=== PATIENT | female | born 1955 | race Caucasian/White ===

== ENCOUNTER 2017-03-27 08:36 | Day surgery (SDC) | payer BC ==
[2017-03-22 11:17] VITALS: BMI 23.1
[~2017-03-27 08:36] MED LIST: LACTATED RINGERS 1,000 ML IV SCH; LIDOCAINE 1% 20 ML VIAL (10MG/ML) FOR IV START INTRADERMA PRN
[2017-03-27 09:14] VITALS: RESP 16; TEMP 97.7
[2017-03-27] MEDS ORDERED: PROPOFOL 10 MG/ML 20 ML VIAL IV ONE (09:57)
--- NOTE | 2017-03-27 10:14 | P.PCN ---
Date of Procedure: 03/27/17 Preoperative Diagnosis: Postoperative Diagnosis: Procedure(s) Performed: BRIEF HISTORY: Patient is a 61-year-old pleasant white female, scheduled for an elective colonoscopy as a part of evaluation of intermittent rectal bleeding for the last 6 months duration and change in bowel habits. PROCEDURE PERFORMED: Colonoscopy with biopsy. PREOPERATIVE DIAGNOSIS: Intermittent rectal bleeding and change in bowel habits. IV sedation per Anesthesia. PROCEDURE: After informed consent was obtained, the patient, was brought into the endoscopy unit. IV sedation was administered by Anesthesia under continuous monitoring. Digital rectal examination was normal. Initially the Olympus CF- 160 flexible video colonoscope was then inserted in the rectum, and at 10 cm from the anal was there was a circumferential ulcerated rectal mass with some luminal narrowing noted. The scope could be advanced through the mass and gradually advanced into the cecum without any difficulty. Careful examination was performed as the scope was gradually being withdrawn. Ileocecal valve appeared very prominent and biopsies were done from this area. The appendiceal orifice were visualized and appeared normal. Prep was excellent. Mucosa of the cecum, ascending colon, transverse colon, appeared normal. There was a 2 cm lipoma in the descending colon that was biopsied. The rest of the descending colon, sigmoid colon appeared normal. in the proximal rectum at 10 cm from the anal verge there was circumferential ulcerated mass at some luminal narrowing but no obstruction. Multiple biopsies were done from this area.Retroflexion was performed in the rectum and no lesions were seen. The patient tolerated the procedure well. IMPRESSION: circumferential ulcerated proximal rectal mass at 10 cm from the anal verge status post multiple biopsies 2 cm descending colon lipoma status post biopsy Prominent ileocecal valve status post biopsy RECOMMENDATIONS: Findings of this examination were discussed with the patient as well as her family. At this time will await the biopsy results and she'll be seen in the office in 2 days. She will be scheduled for an a CT of the abdomen and pelvis in the meantime. Implants: Indications for Procedure: Operative Findings: Description of Procedure:
[2017-03-27 10:31] VITALS: BP 118/88; PULSE 54
== END 2017-03-27 10:53 | disposition home or self-care (01) ==
LOC: ORWHC2ENDO 08:36
PROVIDERS: ATTEND Internal Medicine Gastroenterology
DX: C20 Malignant neoplasm of rectum (principal); D17.5 Benign lipomatous neoplasm of intra-abdominal organs; Z87.891 Personal history of nicotine dependence; K21.9 Gastro-esophageal reflux disease without esophagitis
CPT/HCPCS: 88305; 45380; J2704

== ENCOUNTER → 2017-03-29 | Outpatient (CLI) | payer BC ==
--- NOTE | 2017-04-01 11:50 | CT ---
EXAMINATION TYPE: CT abdomen pelvis w con DATE OF EXAM: 03/29/2017 HISTORY: Rectal bleeding, change in bowel habits CT DLP: 1160mGycm Automated Exposure Control for Dose Reduction was Utilized. CONTRAST: CT scan of the abdomen and pelvis is performed with IV Contrast, patient injected with 100 mL of Omni paque 300. COMPARISON: Abdominal ultrasound dated 02/02/2012. FINDINGS: LUNG BASES: No significant abnormality is appreciated. LIVER/GB: No significant abnormality is appreciated. Gallbladder surgically absent. No intrahepatic b iliary ductal dilatation. PANCREAS: No significant abnormality is seen. SPLEEN: No significant abnormality is seen. Small splenules are seen adjacent to the [place] spleen. ADRENALS: No significant abnormality is seen. KIDNEYS: No significant abnormality is seen. BOWEL: There is eccentric rectal wall thickening of up to 1.3 cm and narrowing of rectal lumen with n o evidence of proximal obstruction. There is fat stranding of the mesorectal fat and few prominent ly mph nodes within the presacral space and mesorectal fat measuring up to 6 mm numerous sigmoid diverti cula are present without pericolonic fat stranding. UTERUS/ADNEXA: No gross abnormality seen. LYMPH NODES: No greater than 1cm abdominal or pelvic lymph nodes are appreciated. OSSEOUS STRUCTURES: No significant abnormality is seen. Degenerative changes are seen of the pubic sy mphysis and to a lesser degree at the sacroiliac joints as well as the lumbosacral junction. Limbus v ertebrae is also incidentally noted at L3. OTHER: No significant additional abnormality is seen. IMPRESSION: 1. Eccentric rectal wall thickening, fat stranding of the surrounding mesorectal fat, and local adeno amina. Although findings could relate to inflammatory or infectious etiology such as proctitis or ulc erative colitis, primary consideration should be for neoplasm until excluded and direct visualization is recommended. A [place] message has been communicated to Pat Rod MD via the [facility] Critical Result system on 04/01/2017 11:47 AM, Message ID [id number].
== END | disposition home or self-care (01) ==
LOC: RADCTMAIN 07:31
PROVIDERS: ATTEND Internal Medicine Gastroenterology
DX: K62.89 Other specified diseases of anus and rectum (principal); R59.0 Localized enlarged lymph nodes
CPT/HCPCS: 74177; Q9967

== ENCOUNTER → 2017-04-13 | Outpatient (CLI) | payer BC ==
--- NOTE | 2017-04-14 11:07 | PE ---
EXAMINATION TYPE: PET CT fusion skull to thigh DATE OF EXAM: 04/13/2017 COMPARISON: CT abdomen pelvis 03/29/2017 Prior PET/CT: None HISTORY: Rectal cancer TECHNIQUE: Following the intravenous administration of 10.61 mCi of F-18 FDG, whole body images are performed from the skull base to the midthigh. Images are reviewed on the computer in the coronal, a xial, and sagittal planes. Reconstructed rotating images are created on independent workstation and reviewed on the computer. A localization and attenuation correction CT is performed in conjunction with the PET scan. DLP: 285.07 mGycm SCAN: Initial Blood glucose: 97 mg/dL Average Mediastinum SUV: 1.5 Average Liver SUV: 2.4 FINDINGS: NECK: Motion artifact is present on the PET image through the lower skull base. Suspicious uptake wi thin the neck as visualized is not apparent. THORAX: No abnormal uptake ABDOMEN: No abnormal uptake PELVIS: There is focal radiotracer accumulation in the rectal region. This has an SUV value of 14.8 c ompatible with neoplasm. OSSEOUS STRUCTURES: No abnormal uptake. LOCALIZATION CT: The ascending thoracic aorta at the level the main pulmonary artery is 2.8 cm patent main pulmonary artery the bifurcation is 2.5 cm. Post cholecystectomy clips are present. There is th ickening of the rectum compatible the patient's rectosigmoid region cancer. COMPARISON: No significant change between the CT abdomen pelvis of 03/29/2017 is evident. Abnormal upta ke on the current PET CT is not evident within the left iliac chain region. IMPRESSION: 1. Focal uptake within the rectosigmoid region compatible with the patient's reported neoplasm. 2. Suspicious changes for metastatic disease are not identified.
== END | disposition home or self-care (01) ==
LOC: RADPETMAIN 11:57
PROVIDERS: ATTEND Family Medicine
DX: C20 Malignant neoplasm of rectum (principal)
CPT/HCPCS: 78815; A9552

== ENCOUNTER 2017-05-30 03:45 | Emergency (ER) | payer BC ==
[2017-05-30] MEDS ORDERED: RX INFO: IV CONTRAST WAS GIVEN 1 EACH MISC MISCELLANE PRN (03:47)
[2017-05-30] MEDS ORDERED: tPA (Alteplase) PER PHARMACY 1 EACH MISC MISCELLANE PRN (04:04)
[2017-05-30 04:11] VITALS: TEMP 97.4
[2017-05-30] MEDS ORDERED: SODIUM CHLORIDE 0.9% 1,000 ML IV ONE (04:20)
--- NOTE | 2017-05-30 04:32 | ED ---
General Adult HPI - General Chief complaint: Neuro Symptoms/Deficit Stated complaint: stroke symptoms Time Seen by Provider: 05/30/17 03:47 Source: patient, EMS, old records reviewed Mode of arrival: EMS Limitations: no limitations - History of Present Illness Initial comments: 61-year-old female presents with left upper and lower extremity weakness. Weakness began at approximately 2 am. Patient states she was awake at this time. She called EMS, she was unable to stand secondary to weakness. Patient denies chest pain. Denies headache. According EMS patient had left-sided facial weakness, slurred speech, left upper and left lower extremity weakness. Vital signs were stable during transport. Patient denies history hypertension. Denies chest pain or shortness of breath. Denies abdominal pain. Patient does have recent diagnosis of rectal CA. She has been receiving chemotherapy for this. There has been no surgery. Patient did have a biopsy on March 27. She has had no rectal bleeding. - Related Data Home Medications Medication Instructions Recorded Confirmed Lubiprostone [Amitiza] 24 mcg PO BID 03/22/17 03/27/17 Polyethylene Glycol 3350 [Miralax] 17 gm PO DAILY 03/22/17 03/27/17 Allergies Allergy/AdvReac Type Severity Reaction Status Date / Time No Known Allergies Allergy Verified 05/30/17 04:11 Review of Systems ROS Statement: Those systems with pertinent positive or pertinent negative responses have been documented in the HPI. ROS Other: All systems not noted in ROS Statement are negative. Past Medical History Past Medical History: Cancer, GERD/Reflux Additional Past Medical History / Comment(s): constipation for last 3 weeks, bleeding with stools for since approx Aug 2016,hx uti's History of Any Multi-Drug Resistant Organisms: None Reported Past Surgical History: Cholecystectomy Past Anesthesia/Blood Transfusion Reactions: No Reported Reaction Additional Past Anesthesia/Blood Transfusion Reaction / Comment(s): no hx blood transfusion Past Psychological History: Unable to Obtain Smoking Status: Former smoker Past Alcohol Use History: Unable to Obtain Past Drug Use History: Marijuana - Past Family History Mother Family Medical History: No Reported History Father Family Medical History: No Reported History General Exam Limitations: no limitations General appearance: alert, in distress Head exam: Present: atraumatic, normocephalic Eye exam: Present: normal appearance, PERRL, EOMI ENT exam: Present: normal exam Neck exam: Present: normal inspection Respiratory exam: Present: normal lung sounds bilaterally. Absent: respiratory distress Cardiovascular Exam: Present: regular rate, normal rhythm GI/Abdominal exam: Present: soft. Absent: distended, tenderness Rectal exam: Present: normal inspection, normal rectal tone. Absent: black stool, bloody stool Extremities exam: Present: normal inspection, normal capillary refill. Absent: pedal edema Neurological exam: Present: alert, oriented X3, motor sensory deficit (Left facial droop, left upper and left lower extremity complete paralysis). Absent: CN II-XII intact Psychiatric exam: Present: normal affect, normal mood Skin exam: Present: warm, dry, intact. Absent: cyanosis Course Vital Signs 05/30/17 03:48 Temperature 97.4 F L Pulse Rate 76 Respiratory 20 Rate Blood Pressure 140/85 O2 Sat by Pulse 100 Oximetry - Reevaluation(s) Reevaluation #1: 05/30/17 04:00 Prehospital Stroke activation. Patient taken immediately to computed tomography scan Reevaluation #2: 05/30/17 04:15 Case discussed with neuro interventionalist EKG Findings - EKG Comments: EKG Findings:: EKG shows sinus rhythm with PVC, ventricular rate 67, TX interval 140, QRS duration 84, QTC 445, no ST segment elevation or depression Medical Decision Making - Medical Decision Making 61-year-old female presenting with signs and symptoms of acute stroke. Patient does have recent diagnosis of rectal adenocarcinoma. She has been receiving chemotherapy. There has been no surgery. Patient denies rectal bleeding. PET scan obtained within the past several months shows no metastases. Patient does meet criteria for TPA. This was discussed with Dr. Rivera. Head CT without contrast negative for scleral hemorrhage CT angiography is pending, however liver report was called with him 1 occlusion on the right, consistent with patient's symptoms of left-sided weakness. TPA is ordered at 404, awaiting CT head report. I did receive this report at approximately 0445. Patient is given TPA for acute ischemic stroke. Patient will be transferred for further evaluation and treatment. - Lab Data Result diagrams: 05/30/17 04:15 Lab Results 05/30/17 05/30/17 Range/Units 04:15 04:31 WBC 12.3 H (3.8-10.6) k/uL RBC 4.25 (3.80-5.40) m/uL Hgb 13.5 (11.4-16.0) gm/dL Hct 39.1 (34.0-46.0) % MCV 92.2 (80.0-100.0) fL MCH 31.8 (25.0-35.0) pg MCHC 34.5 (31.0-37.0) g/dL RDW 12.7 (11.5-15.5) % Plt Count 393 (150-450) k/uL Neutrophils % 80 % Lymphocytes % 14 % Monocytes % 4 % Eosinophils % 1 % Basophils % 0 % Neutrophils # 9.8 H (1.3-7.7) k/uL Lymphocytes # 1.7 (1.0-4.8) k/uL Monocytes # 0.5 (0-1.0) k/uL Eosinophils # 0.1 (0-0.7) k/uL Basophils # 0.0 (0-0.2) k/uL POC Glucose (mg/dL) 194 H (75-99) mg/dL POC Glu Rfid Engineer ID Curtis Pedraza Critical Care Time Critical Care Time: Yes Total Critical Care Time: 35 Disposition Clinical Impression: CVA (cerebral vascular accident), Received intravenous tissue plasminogen activator (tPA) in emergency department Disposition: OTHER INSTITUTION NOT DEFINED Condition: Serious Referrals: Nonstaff,Physician [Primary Care Provider] - 1-2 days - Out of Hospital Transfer - Req. Specs Out of Hospital Transfer - Requested Specifics: Surgical ICU (Patient transferred to [facility])
[2017-05-30 04:34] LABS: Basophils % (A) 0 %; CH 31.3; CHCM 34.1; Eosinophils # (A) 0.1 k/uL (0-0.7); Eosinophils % (A) 1 %; HCT 39.1 % (34.0-46.0); HDW 2.16; HGB 13.5 gm/dL (11.4-16.0); Luc # (Auto) 0.16; Luc % (Auto) 1; Lymphocytes # (A) 1.7 k/uL (1.0-4.8); Lymphocytes % (A) 14 %; MCH 31.8 pg (25.0-35.0); MCHC 34.5 g/dL (31.0-37.0); MCV 92.2 fL (80.0-100.0); Mean Platelet Volume 7.3; Monocytes # (A) 0.5 k/uL (0-1.0); Monocytes % (A) 4 %; Neutrophils # (A) 9.8 k/uL (1.3-7.7); Neutrophils % (A) 80 %; RBC 4.25 m/uL (3.80-5.40); RDW 12.7 % (11.5-15.5); WBC 12.3 k/uL (3.8-10.6); WBC (Perox) 12.32
--- NOTE | 2017-05-30 04:37 | CT ---
EXAM: CT Head Without Intravenous Contrast CLINICAL HISTORY: Reason: Neuro Deficits TECHNIQUE: Axial computed tomography images of the head/brain without intravenous contrast. CTDI is 57.4 mGy and DLP is 1081.6 mGy-cm. This CT exam was performed using one or more of the following dose reduction techniques: automated exposure control, adjustment of the mA and/or kV according to patient size, and/or use of iterative reconstruction technique. COMPARISON: No relevant prior studies available. FINDINGS: Brain: Mild cerebral atrophy. No evidence of acute cortical cerebral infarction or intracranial hemorrhage. No abnormal extra-axial collections identified. No edema. Ventricles: Ventricles are of normal size and configuration without mass effect or midline shift. Bones/joints: No acute skull fracture. Sinuses: Imaged paranasal sinuses are clear. Mastoid sinuses are normally aerated bilaterally. Mastoid air cells: See above. IMPRESSION: No evidence of acute intracranial abnormality.
[2017-05-30] MEDS ORDERED: ALTEPLASE BOLUS 6 MG in EMPTY SYRINGE 1 SYR IV STA (04:42)
[2017-05-30] MEDS ORDERED: ALTEPLASE IV STA (04:42)
[2017-05-30 04:45] LABS: Glucose,Whole Blood 194 mg/dL (75-99)
[2017-05-30 04:49] LABS: Anion Gap 14 mmol/L; Calcium 9.6 mg/dL (8.4-10.2); Carbon Dioxide 18 mmol/L (22-30); Chloride 104 mmol/L (98-107); Glucose 200 mg/dL (74-99); Non-African American GFR(MDRD) >60 (>60 ml/min/1.73 sqM); Sodium 136 mmol/L (137-145); Total Bilirubin 0.6 mg/dL (0.2-1.3); Total Protein 6.7 g/dL (6.3-8.2)
[2017-05-30 04:50] LABS: Blood Urea Nitrogen 15 mg/dL (7-17); Potassium 4.2 mmol/L (3.5-5.1)
[2017-05-30 04:51] LABS: ALT 26 U/L (9-52); AST 22 U/L (14-36); Alkaline Phosphatase 83 U/L (38-126); Partial Thromboplastin Time 22.4 sec (22.0-30.0)
[2017-05-30 04:54] LABS: Creatine Kinase 37 U/L (30-135); Prothrombin Time 10.4 sec (9.0-12.0)
--- NOTE | 2017-05-30 05:04 | CT ---
EXAM: CT Angiography Head With Intravenous Contrast CLINICAL HISTORY: Reason: Neuro Deficits TECHNIQUE: Axial computed tomographic angiography images of the head with intravenous contrast using CT angiography protocol. CTDI is 57.4 mGy and DLP is 1081.6 mGy-cm. This CT exam was performed using one or more of the following dose reduction techniques: automated exposure control, adjustment of the mA and/or kV according to patient size, and/or use of iterative reconstruction technique. MIP reconstructed images were created and reviewed. COMPARISON: CT head 05/30/2017 FINDINGS: Right internal carotid artery: Mild calcific atherosclerotic plaque involving cavernous segment right internal carotid artery without significant stenosis No aneurysm. Right anterior cerebral artery: Unremarkable. No occlusion or significant stenosis. No aneurysm. Right middle cerebral artery: Right middle cerebral artery occlusion with abrupt termination of the M1 segment of right middle cerebral artery. There is opacification of more distal right MCA branches along the sylvian fissure. No aneurysm. Right posterior cerebral artery: Unremarkable. No occlusion or significant stenosis. No aneurysm. Right vertebral artery: Unremarkable as visualized. Left internal carotid artery: No acute findings. Intracranial segment is patent with no significant stenosis. No aneurysm. Left anterior cerebral artery: Unremarkable. No occlusion or significant stenosis. No aneurysm. Left middle cerebral artery: Unremarkable. No occlusion or significant stenosis. No aneurysm. Left posterior cerebral artery: Unremarkable. No occlusion or significant stenosis. No aneurysm. Left vertebral artery: Unremarkable as visualized. Basilar artery: Unremarkable. No occlusion or significant stenosis. No aneurysm. IMPRESSION: Right middle cerebral artery occlusion with abrupt termination of the M1 segment of right middle cerebral artery. EXAM: CT Angiography Neck With Intravenous Contrast CLINICAL HISTORY: Reason: Neuro Deficits TECHNIQUE: Axial computed tomographic angiography images of the neck with intravenous contrast using CT angiography protocol. CTDI is 57.4 mGy and DLP is 1081.6 mGy-cm. This CT exam was performed using one or more of the following dose reduction techniques: automated exposure control, adjustment of the mA and/or kV according to patient size, and/or use of iterative reconstruction technique. MIP reconstructed images were created and reviewed. COMPARISON: No relevant prior studies available. FINDINGS: VASCULATURE: Right common carotid artery: Unremarkable. No significant stenosis. No dissection or occlusion. Right internal carotid artery: Unremarkable. Extracranial segment is patent with no significant stenosis. No dissection or occlusion. Right external carotid artery: Unremarkable. No occlusion. Right vertebral artery: Unremarkable. No significant stenosis. No dissection or occlusion. Left common carotid artery: Unremarkable. No significant stenosis. No dissection or occlusion. Left internal carotid artery: Unremarkable. Extracranial segment is patent with no significant stenosis. No dissection or occlusion. Left external carotid artery: Unremarkable. No occlusion. Left vertebral artery: Unremarkable. No significant stenosis. No dissection or occlusion. CAROTID STENOSIS REFERENCE USING NASCET CRITERIA: % ICA stenosis = (1 - narrowest ICA diameter/diameter of distal cervical ICA) x 100. Mild - <50% stenosis. Moderate - 50-69% stenosis. Severe - 70-94% stenosis. Near occlusion - 95-99% stenosis. Occluded - 100% stenosis. IMPRESSION: No significant carotid stenosis or occlusion Vertebral arteries are patent bilaterally. Critical Value Communications 05/30/17 04:45 Call Doctor Regarding Stroke, called Dr. Jennings on 05/30 04:43 (-04:00) 05/30/17 05:12 Verify Receipt Verified receipt with ELODIA Jennings on 05/30 05:11 (-04:00)
[2017-05-30] MEDS ORDERED: LORazepam 2 MG/ML INJ IV STA (05:05)
[2017-05-30 05:07] LABS: Creatine Kinase MB <0.2 ng/mL (0.0-2.4); Troponin I <0.012 ng/mL (0.000-0.034)
--- NOTE | 2017-05-30 05:18 | XR ---
EXAM: XR Chest, 1 View CLINICAL HISTORY: Reason: Pain TECHNIQUE: Frontal view of the chest. COMPARISON: No relevant prior studies available. FINDINGS: Lungs: Lungs are clear without infiltrates or consolidations. Pleural space: No evidence of pleural effusion or pneumothorax Heart: Heart size is within normal limits Mediastinum: Unremarkable. Bones/joints: Imaged bony thorax is unremarkable IMPRESSION: No evidence of acute cardiopulmonary disease.
[2017-05-30 06:23] VITALS: BP 131/68
[2017-05-30 06:24] VITALS: PULSE 72; RESP 20
== END 2017-05-30 05:50 | disposition other institution (70) ==
LOC: EC 03:45
DX: I63.9 Cerebral infarction, unspecified (principal); C20 Malignant neoplasm of rectum; Z79.899 Other long term (current) drug therapy; Z87.891 Personal history of nicotine dependence
CPT/HCPCS: 99291 ×2; 96365 ×2; 96374 ×2; 36415; 93005; 80053; 82550; 82553; 84484; 85025; 85610; 85730; 80320; 71010; 70496; 70450; 70498; J2997; J2060; Q9967

== ENCOUNTER 2017-10-30 07:01 | Day surgery (SDC) | payer BC ==
[2017-10-28 10:27] VITALS: BMI 21.7
[~2017-10-30 07:01] MED LIST changes: +DEXAMETHASONE SOD PHOSPHATE 10 MG/ML 1 ML VIAL IV ONE; +HEPARIN SODIUM,PORCINE 5,000 UNIT/ML 1 ML VIAL SQ ONE; +HYDROmorphone 0.5 MG/0.5 ML SYRINGE IVP PRN; -LACTATED RINGERS 1,000 ML IV SCH; -LIDOCAINE 1% 20 ML VIAL (10MG/ML) FOR IV START INTRADERMA PRN; +ONDANSETRON 4 MG/2 ML VIAL IVP ONE; +Pre Op ABX Message 1 EACH MISC MISCELLANE ONE
[2017-10-30 07:28] VITALS: TEMP 97.7
[2017-10-30] MEDS: LACTATED RINGERS 1,000 ML IV SCH ×3 (07:47→08:21)
[2017-10-30] MEDS ORDERED: BUPIVACAINE (PF) 0.25% 30 ML VIAL SQ ONE ×2 (07:59→08:51)
[2017-10-30] MEDS ORDERED: HEPARIN SODIUM,PORCINE 100 UNIT/ML 5 ML VIAL IV ONE ×2 (08:00→08:51)
--- NOTE | 2017-10-30 08:19 | P.GSHP ---
History of Present Illness H&P Date: 10/30/17 Chief Complaint: Rectal cancer This a 62-year-old female who's recent diagnosis of rectal cancer. Patient presents today for Port-A-Cath insertion for IV infusion therapy. Patient aware the risk of the procedure including possible pneumothorax. Past Medical History Past Medical History: Cancer, CVA/TIA, GERD/Reflux Additional Past Medical History / Comment(s): colorectal cancer, 33 treatments chemo/radiation completed 07/10/17, CVA- 05/30/17 no residual effect, constipation,hx uti's History of Any Multi-Drug Resistant Organisms: None Reported Past Surgical History: Cholecystectomy, Pacemaker Additional Past Surgical History / Comment(s): colonoscopy 03/27/17, colorectal surgery to remove tumor 09/05/17 Past Anesthesia/Blood Transfusion Reactions: No Reported Reaction Additional Past Anesthesia/Blood Transfusion Reaction / Comment(s): no hx blood transfusion Type of Cardiac Device: Permanent Pacemaker Device Placement Date:: 08/21/17 Smoking Status: Former smoker - Past Family History Mother Family Medical History: Deep Vein Thrombosis (DVT) Father Family Medical History: No Reported History Medications and Allergies Home Medications Medication Instructions Recorded Confirmed Type ALPRAZolam [Xanax] 0.25 mg PO DAILY PRN 08/06/17 10/30/17 History Atorvastatin [Lipitor] 40 mg PO HS 08/06/17 10/30/17 History Metoprolol Tartrate [Lopressor] 12.5 mg PO BID 08/06/17 10/30/17 History Flecainide [Tambocor] 100 mg PO Q12HR 10/28/17 10/30/17 History Rivaroxaban [Xarelto] 20 mg PO DAILY 10/28/17 10/30/17 History traMADol HCL [Ultram] 50 mg PO Q8H PRN 10/28/17 10/30/17 History Allergies Allergy/AdvReac Type Severity Reaction Status Date / Time No Known Allergies Allergy Verified 10/30/17 07:08 Surgical - Exam Vital Signs Temp Pulse Resp BP Pulse Ox 97.7 F 107 H 20 112/70 100 10/30/17 07:26 10/30/17 07:26 10/30/17 07:26 10/30/17 07:26 10/30/17 07:26 - General well developed, no distress - Eyes PERRL - ENT normal pinna - Neck no masses - Respiratory normal expansion - Cardiovascular Rhythm: regular - Abdomen Abdomen: soft, non tender Assessment and Plan Assessment: History of rectal cancer. We'll perform Port-A-Cath insertion.
[2017-10-30] MEDS ORDERED: KETAMINE 10 MG/ML 20 ML VIAL ONE (08:25)
[2017-10-30] MEDS ORDERED: PHENYLEPHRINE-0.9% NACL SYG 1 MG/10 ML SYRINGE ONE (08:25)
[2017-10-30] MEDS ORDERED: fentaNYL (PF) 50 MCG/ML 2 ML AMP ONE (08:25)
[2017-10-30] MEDS ORDERED: LIDOCAINE 1% INJ 10MG/ML (20 ML MDV) ONE (08:25)
[2017-10-30] MEDS ORDERED: PROPOFOL 10 MG/ML 20 ML VIAL IV ONE (08:25)
[2017-10-30] MEDS ORDERED: MIDAZOLAM 2 MG/2 ML VIAL ONE (08:25)
[2017-10-30] MEDS ORDERED: SODIUM CHLORIDE 0.9% 50 ML with ceFAZolin 2,000 MG IV ONE ×2 (08:45)
[2017-10-30] MEDS ORDERED: IOHEXOL 180 MG/ML 1 ML ML MISCELLANE ONE (09:02)
--- NOTE | 2017-10-30 09:38 | FL ---
Fluoroscopy HISTORY: Port-A-Cath insertion 17 seconds fluoroscopy time supplied to the referring clinician. 0 intraoperative C-arm images docum ent the procedure. See dictated report from general surgery.
--- NOTE | 2017-10-30 09:47 | P.OP ---
Date of Procedure: 10/30/17 Preoperative Diagnosis: Rectal cancer Postoperative Diagnosis: Rectal cancer Procedure(s) Performed: Insertion of right subclavian Port-A-Cath Anesthesia: MAC Surgeon: Ezequiel Martinez Estimated Blood Loss (ml): 5 Pathology: none sent Condition: stable Disposition: PACU Description of Procedure: PROCEDURE: The patient was placed on the operating table in the supine position. She received MAC anesthetic. The [right] chest was prepped and draped in the usual sterile fashion. The skin underneath the right clavicle was anesthetized with 1% Xylocaine and using Seldinger technique, the right subclavian vein was cannulized. The wire was placed through the needle and positioned under fluoroscopy. Next, the needle was removed and the port site was anesthetized with 1% Xylocaine. Skin was incised with #15 blade and port pocket was made using blunt and sharp dissection. Following this the catheter was attached to the sport and the port was flushed. The port was positioned into the pocket site and was secured with 3-0 Vicryl suture. The catheter was then brought out through the wire site and then the dilator sheath was placed over the wire and the dilator and the wire were removed. The catheter was placed through the sheath and the sheath was removed. The port was flushed with hep-lock solution. Skin was closed with interrupted 3-0 Vicryl sutures. Steri-Strips were applied. The patient tolerated the procedure well. The patient was sent to recovery room for chest x-ray after the procedure.
[2017-10-30 09:50] VITALS: BP 95/65; PULSE 89; RESP 16
--- NOTE | 2017-10-30 09:50 | XR ---
EXAMINATION TYPE: XR chest 1V portable DATE OF EXAM: 10/30/2017 Comparison: 05/30/2017 Clinical History: 62-year-old female with Port-A-Cath Placement, pneumothorax Findings: Left anterior chest wall pacemaker generator with right atrial and right ventricular leads. Right anterior chest wall injection port with subclavian approach and tip at the brachiocephalic vein confluence. No appreciable pneumothorax. Heart remains upper limits of normal in size. Mild diffuse interstitial prominence as a chronic appearance. No consolidation or pleural effusion. Impression: Subclavian approach right anterior chest wall injection port. The catheter tip is at the level of the brachiocephalic vein confluence. No appreciable pneumothorax.
== END 2017-10-30 10:09 | disposition home or self-care (01) ==
LOC: OR 07:01
PROVIDERS: ATTEND Surgery
DX: C20 Malignant neoplasm of rectum (principal); K21.9 Gastro-esophageal reflux disease without esophagitis; Z86.73 Personal history of transient ischemic attack (TIA), and cerebral infarction without residual deficits; Z92.3 Personal history of irradiation; Z92.21 Personal history of antineoplastic chemotherapy; Z95.0 Presence of cardiac pacemaker; Z79.01 Long term (current) use of anticoagulants; Z79.899 Other long term (current) drug therapy; I10 Essential (primary) hypertension; Z85.038 Personal history of other malignant neoplasm of large intestine
CPT/HCPCS: 77001; 71045; 36561; C1788; J2250; J1644; J1642; J1100; Q9965; J2405; J2001; J3010; J0690; J2370; J2704

== ENCOUNTER 2017-12-17 10:43 | Inpatient (IN) | payer BC ==
[2017-12-17] MEDS ORDERED: SODIUM CHLORIDE 0.9% 1,000 ML IV STA ×2 (11:14)
[2017-12-17] MEDS ORDERED: METOPROLOL TARTRATE 5 MG/5 ML VIAL IVP STA (11:15)
--- NOTE | 2017-12-17 11:15 | ED ---
General Adult HPI - General Chief complaint: Weakness Stated complaint: Vomiting-cancer pt Time Seen by Provider: 12/17/17 10:53 Source: patient Mode of arrival: wheelchair Limitations: no limitations - History of Present Illness Initial comments: This is a 62-year-old female the ER for evaluation of weakness, not feeling well. History of A. fib, history of weakness, currently going through treatment for cancer with chemotherapy. States reaction is probably due to chemotherapy decreased appetite not feeling well weight loss. Dehydration. No significant other recent change in medications - Related Data Home Medications Medication Instructions Recorded Confirmed Atorvastatin [Lipitor] 40 mg PO HS 08/06/17 12/17/17 Rivaroxaban [Xarelto] 20 mg PO W/SUPPER 10/28/17 12/17/17 ALPRAZolam [Xanax] 0.5 mg PO DAILY PRN 12/17/17 12/17/17 Amiodarone [Cordarone] 200 mg PO DAILY 12/17/17 12/17/17 Gabapentin [Neurontin] 100 mg PO BID 12/17/17 12/17/17 Metoprolol Tartrate [Lopressor] 12.5 mg PO BID 12/17/17 12/17/17 Ondansetron HCl [Zofran] 4 mg PO Q8H PRN 12/17/17 12/17/17 Prochlorperazine [Compazine] 10 mg PO Q8H PRN 12/17/17 12/17/17 Allergies Allergy/AdvReac Type Severity Reaction Status Date / Time No Known Allergies Allergy Verified 12/17/17 11:34 Review of Systems ROS Statement: Those systems with pertinent positive or pertinent negative responses have been documented in the HPI. ROS Other: All systems not noted in ROS Statement are negative. Past Medical History Past Medical History: Cancer, CVA/TIA, GERD/Reflux Additional Past Medical History / Comment(s): colorectal cancer, 33 treatments chemo/radiation completed 07/10/17, CVA- 05/30/17 no residual effect, constipation,hx uti's History of Any Multi-Drug Resistant Organisms: None Reported Past Surgical History: Cholecystectomy, Pacemaker Additional Past Surgical History / Comment(s): colonoscopy 03/27/17, colorectal surgery to remove tumor 09/05/17 Past Anesthesia/Blood Transfusion Reactions: No Reported Reaction Additional Past Anesthesia/Blood Transfusion Reaction / Comment(s): no hx blood transfusion Type of Cardiac Device: Permanent Pacemaker Device Placement Date:: 08/21/17 Past Psychological History: No Psychological Hx Reported Smoking Status: Former smoker Past Alcohol Use History: None Reported Past Drug Use History: Marijuana - Past Family History Mother Family Medical History: Deep Vein Thrombosis (DVT) Father Family Medical History: No Reported History General Exam Limitations: no limitations General appearance: alert, in no apparent distress, anxious Head exam: Present: atraumatic, normocephalic, normal inspection Eye exam: Present: normal appearance, PERRL, EOMI. Absent: scleral icterus, conjunctival injection, periorbital swelling ENT exam: Present: normal exam, mucous membranes moist Neck exam: Present: normal inspection. Absent: tenderness, meningismus, lymphadenopathy Respiratory exam: Present: normal lung sounds bilaterally. Absent: respiratory distress, wheezes, rales, rhonchi, stridor Cardiovascular Exam: Present: tachycardia, irregular rhythm, normal heart sounds. Absent: systolic murmur, diastolic murmur, rubs, gallop, clicks GI/Abdominal exam: Present: soft, normal bowel sounds. Absent: distended, tenderness, guarding, rebound, rigid Extremities exam: Present: normal inspection, full ROM, normal capillary refill. Absent: tenderness, pedal edema, joint swelling, calf tenderness Back exam: Present: normal inspection Neurological exam: Present: alert, oriented X3, CN II-XII intact Psychiatric exam: Present: normal affect, normal mood Skin exam: Present: warm, dry, intact, normal color. Absent: rash Course Vital Signs 12/17/17 12/17/17 12/17/17 10:45 11:11 11:39 Temperature 96.8 F L Pulse Rate 66 111 H Respiratory 16 16 Rate Blood Pressure 134/59 117/82 O2 Sat by Pulse 99 96 Oximetry 12/17/17 12:53 Temperature Pulse Rate 99 Respiratory 16 Rate Blood Pressure 109/83 O2 Sat by Pulse 100 Oximetry - Reevaluation(s) Reevaluation #1: 12/17/17 15:45 Patient is consistent nausea vomiting here in the ER not feeling well inability inability secondary to weakness EKG Findings - EKG Comments: EKG Findings:: EKG shows A. fib with RVR rate 118, QRS 86, QTc 487 Medical Decision Making - Medical Decision Making 62 female the ER for evaluation pump, positive nausea vomiting, significant disease, patient currently going through treatment for CVA, patient with intractable nausea here in ER was admit for IV hydration and symptom control - Lab Data Result diagrams: 12/17/17 11:23 12/17/17 11:23 Lab Results 12/17/17 12/17/17 12/17/17 Range/Units 11:23 11:23 11:23 WBC 4.7 (3.8-10.6) k/uL RBC 5.11 (3.80-5.40) m/uL Hgb 16.2 H (11.4-16.0) gm/dL Hct 44.0 (34.0-46.0) % MCV 86.0 (80.0-100.0) fL MCH 31.7 (25.0-35.0) pg MCHC 36.9 (31.0-37.0) g/dL RDW 16.2 H (11.5-15.5) % Plt Count 200 (150-450) k/uL Neutrophils % (Manual) 53 % Band Neutrophils % 2 % Lymphocytes % (Manual) 21 % Monocytes % (Manual) 24 % Neutrophils # (Manual) 2.50 (1.3-7.7) k/uL Lymphocytes # (Manual) 0.99 L (1.0-4.8) k/uL Monocytes # (Manual) 1.13 H (0-1.0) k/uL Nucleated RBCs 0 (0-0) /100 WBC Manual Slide Review Performed Hyperchromasia Moderate Anisocytosis Slight PT (9.0-12.0) sec INR (<1.2) APTT (22.0-30.0) sec Sodium 129 L (137-145) mmol/L Potassium 3.4 L (3.5-5.1) mmol/L Chloride 88 L (98-107) mmol/L Carbon Dioxide 26 (22-30) mmol/L Anion Gap 15 mmol/L BUN 35 H (7-17) mg/dL Creatinine 1.25 H (0.52-1.04) mg/dL Est GFR (CKD-EPI)AfAm 53 (>60 ml/min/1.73 sqM) Est GFR (CKD-EPI)NonAf 46 (>60 ml/min/1.73 sqM) Glucose 145 H (74-99) mg/dL Plasma Lactic Acid Davy (0.7-2.0) mmol/L Calcium 9.5 (8.4-10.2) mg/dL Phosphorus 5.1 H (2.5-4.5) mg/dL Magnesium 1.7 (1.6-2.3) mg/dL Total Bilirubin 1.5 H (0.2-1.3) mg/dL AST 88 H (14-36) U/L ALT 146 H (9-52) U/L Alkaline Phosphatase 123 (38-126) U/L Total Creatine Kinase 25 L (30-135) U/L CK-MB (CK-2) 0.6 (0.0-2.4) ng/mL CK-MB (CK-2) Rel Index 2.4 Troponin I <0.012 (0.000-0.034) ng/mL Total Protein 7.0 (6.3-8.2) g/dL Albumin 4.6 (3.5-5.0) g/dL Urine Color Urine Appearance (Clear) Urine pH (5.0-8.0) Ur Specific [place] (1.001-1.035) Urine Protein (Negative) Urine Glucose (UA) (Negative) Urine Ketones (Negative) Urine Blood (Negative) Urine Nitrite (Negative) Urine Bilirubin (Negative) Urine Urobilinogen (<2.0) mg/dL Ur Leukocyte Esterase (Negative) Blood Type Blood Type Recheck Antibody Screen Spec Expiration Date 12/17/17 12/17/17 12/17/17 Range/Units 11:23 11:23 11:23 WBC (3.8-10.6) k/uL RBC (3.80-5.40) m/uL Hgb (11.4-16.0) gm/dL Hct (34.0-46.0) % MCV (80.0-100.0) fL MCH (25.0-35.0) pg MCHC (31.0-37.0) g/dL RDW (11.5-15.5) % Plt Count (150-450) k/uL Neutrophils % (Manual) % Band Neutrophils % % Lymphocytes % (Manual) % Monocytes % (Manual) % Neutrophils # (Manual) (1.3-7.7) k/uL Lymphocytes # (Manual) (1.0-4.8) k/uL Monocytes # (Manual) (0-1.0) k/uL Nucleated RBCs (0-0) /100 WBC Manual Slide Review Hyperchromasia Anisocytosis PT 13.1 H (9.0-12.0) sec INR 1.4 H (<1.2) APTT 26.3 (22.0-30.0) sec Sodium (137-145) mmol/L Potassium (3.5-5.1) mmol/L Chloride (98-107) mmol/L Carbon Dioxide (22-30) mmol/L Anion Gap mmol/L BUN (7-17) mg/dL Creatinine (0.52-1.04) mg/dL Est GFR (CKD-EPI)AfAm (>60 ml/min/1.73 sqM) Est GFR (CKD-EPI)NonAf (>60 ml/min/1.73 sqM) Glucose (74-99) mg/dL Plasma Lactic Acid Davy 1.8 (0.7-2.0) mmol/L Calcium (8.4-10.2) mg/dL Phosphorus (2.5-4.5) mg/dL Magnesium (1.6-2.3) mg/dL Total Bilirubin (0.2-1.3) mg/dL AST (14-36) U/L ALT (9-52) U/L Alkaline Phosphatase (38-126) U/L Total Creatine Kinase (30-135) U/L CK-MB (CK-2) (0.0-2.4) ng/mL CK-MB (CK-2) Rel Index Troponin I (0.000-0.034) ng/mL Total Protein (6.3-8.2) g/dL Albumin (3.5-5.0) g/dL Urine Color Urine Appearance (Clear) Urine pH (5.0-8.0) Ur Specific [place] (1.001-1.035) Urine Protein (Negative) Urine Glucose (UA) (Negative) Urine Ketones (Negative) Urine Blood (Negative) Urine Nitrite (Negative) Urine Bilirubin (Negative) Urine Urobilinogen (<2.0) mg/dL Ur Leukocyte Esterase (Negative) Blood Type O Negative Blood Type Recheck No Antibody Screen NEGATIVE Spec Expiration Date 12/20/2017232212/17/17 Range/Units 14:28 WBC (3.8-10.6) k/uL RBC (3.80-5.40) m/uL Hgb (11.4-16.0) gm/dL Hct (34.0-46.0) % MCV (80.0-100.0) fL MCH (25.0-35.0) pg MCHC (31.0-37.0) g/dL RDW (11.5-15.5) % Plt Count (150-450) k/uL Neutrophils % (Manual) % Band Neutrophils % % Lymphocytes % (Manual) % Monocytes % (Manual) % Neutrophils # (Manual) (1.3-7.7) k/uL Lymphocytes # (Manual) (1.0-4.8) k/uL Monocytes # (Manual) (0-1.0) k/uL Nucleated RBCs (0-0) /100 WBC Manual Slide Review Hyperchromasia Anisocytosis PT (9.0-12.0) sec INR (<1.2) APTT (22.0-30.0) sec Sodium (137-145) mmol/L Potassium (3.5-5.1) mmol/L Chloride (98-107) mmol/L Carbon Dioxide (22-30) mmol/L Anion Gap mmol/L BUN (7-17) mg/dL Creatinine (0.52-1.04) mg/dL Est GFR (CKD-EPI)AfAm (>60 ml/min/1.73 sqM) Est GFR (CKD-EPI)NonAf (>60 ml/min/1.73 sqM) Glucose (74-99) mg/dL Plasma Lactic Acid Davy (0.7-2.0) mmol/L Calcium (8.4-10.2) mg/dL Phosphorus (2.5-4.5) mg/dL Magnesium (1.6-2.3) mg/dL Total Bilirubin (0.2-1.3) mg/dL AST (14-36) U/L ALT (9-52) U/L Alkaline Phosphatase (38-126) U/L Total Creatine Kinase (30-135) U/L CK-MB (CK-2) (0.0-2.4) ng/mL CK-MB (CK-2) Rel Index Troponin I (0.000-0.034) ng/mL Total Protein (6.3-8.2) g/dL Albumin (3.5-5.0) g/dL Urine Color Yellow Urine Appearance Clear (Clear) Urine pH 5.5 (5.0-8.0) Ur Specific [place] 1.015 (1.001-1.035) Urine Protein Trace H (Negative) Urine Glucose (UA) Negative (Negative) Urine Ketones Negative (Negative) Urine Blood Negative (Negative) Urine Nitrite Negative (Negative) Urine Bilirubin Negative (Negative) Urine Urobilinogen <2.0 (<2.0) mg/dL Ur Leukocyte Esterase Negative (Negative) Blood Type Blood Type Recheck Antibody Screen Spec Expiration Date - Radiology Data Radiology results: report reviewed (Chest x-rays negative for acute disease), image reviewed Disposition Clinical Impression: Dehydration, Weakness, Intractable nausea and vomiting, Atrial fibrillation with RVR Disposition: ADMITTED IP TO THIS HOSP Condition: Fair Is patient prescribed a controlled substance at d/c from ED?: No Referrals: Everardo Prajapati MD [Primary Care Provider] - 1-2 days
[2017-12-17] MEDS ORDERED: ONDANSETRON 4 MG/2 ML VIAL IVP STA (11:41)
[2017-12-17 11:52] LABS: INR 1.4 (<1.2); Partial Thromboplastin Time 26.3 sec (22.0-30.0); Prothrombin Time 13.1 sec (9.0-12.0)
[2017-12-17 11:53] LABS: Anisocytosis Slight; HGB 16.2 gm/dL (11.4-16.0); Hyperchromasia Moderate; MCH 31.7 pg (25.0-35.0); MCHC 36.9 g/dL (31.0-37.0); Mean Platelet Volume 7.3; Platelet Count 200 k/uL (150-450); RBC 5.11 m/uL (3.80-5.40); RDW 16.2 % (11.5-15.5); WBC 4.7 k/uL (3.8-10.6)
[2017-12-17 12:00] LABS: Albumin 4.6 g/dL (3.5-5.0); Calcium 9.5 mg/dL (8.4-10.2); Magnesium 1.7 mg/dL (1.6-2.3); Phosphorus 5.1 mg/dL (2.5-4.5); Potassium 3.4 mmol/L (3.5-5.1); Total Bilirubin 1.5 mg/dL (0.2-1.3)
--- NOTE | 2017-12-17 12:14 | XR ---
EXAMINATION TYPE: XR chest 2V DATE OF EXAM: 12/17/2017 COMPARISON: 10/30/2017 HISTORY: Shortness of breath TECHNIQUE: Frontal and lateral views of the chest are obtained. FINDINGS: Scattered senescent parenchymal changes noted. Pacer device is in place. No evidence for infiltrate. No evidence for atelectasis. Heart size is stable. Mediastinal structures are stable and grossly unremarkable. No evidence for hilar prominence. Degenerative changes dorsal spine. IMPRESSION: 1. No evidence for acute pulmonary disease.
[2017-12-17 12:20] LABS: Band Neutrophils % 2 %; Lymphocytes # (M) 0.99 k/uL (1.0-4.8); Monocytes # (M) 1.13 k/uL (0-1.0); Neutrophils % (M) 53 %; Nucleated Red Blood Cells 0 /100 WBC (0-0); Total Cells Counted 100
[2017-12-17 12:23] LABS: Creatine Kinase 25 U/L (30-135)
[2017-12-17 12:36] LABS: Creatine Kinase MB 0.6 ng/mL (0.0-2.4); Troponin I <0.012 ng/mL (0.000-0.034)
[2017-12-17] MEDS ORDERED: POTASSIUM BICARBONATE/CIT AC 20 MEQ TABLET.EFF PO STA (13:12)
[2017-12-17 14:51] LABS: Appearance,Urine Clear (Clear); Bilirubin,Urine Negative (Negative); Blood,Urine Negative (Negative); Color,Urine Yellow; Glucose,Urine (UA) Negative (Negative); Ketones,Urine Negative (Negative); Leukocyte Esterase,Urine Negative (Negative); Nitrite,Urine Negative (Negative); PH, Urine 5.5 (5.0-8.0); Protein,Urine Trace (Negative); Specific Gravity,Urine 1.015 (1.001-1.035); Urobilinogen,Urine <2.0 mg/dL (<2.0)
[2017-12-17] MEDS ORDERED: DEXTROSE 5%-0.45% NACL 1,000 ML IV ONE (15:43)
[2017-12-17] MEDS ORDERED: PANTOPRAZOLE 40 MG/10 ML VIAL IVP STA (15:43)
[2017-12-17] MEDS ORDERED: ONDANSETRON 4 MG/2 ML VIAL IVP PRN (15:43)
[2017-12-17] MEDS ORDERED: ALPRAZolam 0.5 MG TAB PO PRN (18:27)
[2017-12-17] MEDS ORDERED: PROCHLORPERAZINE 10 MG TAB PO PRN (18:28)
[2017-12-17] MEDS: RIVAROXABAN 20 MG TAB PO SCH (18:59)
[2017-12-17] MEDS: GABAPENTIN 100 MG CAP PO SCH (20:14)
[2017-12-17] MEDS: ATORVASTATIN 40 MG TAB PO SCH (20:14)
[2017-12-17] MEDS: METOPROLOL TARTRATE 12.5 MG TAB PO SCH (23:50)
--- NOTE | 2017-12-18 05:56 | HP ---
HISTORY AND PHYSICAL SUBJECTIVE: This is a 62-year-old white female with vomiting, nausea, status post chemotherapy 2 weeks ago. She has been nausea and vomiting for the past 2 weeks. This is her fourth chemotherapy. It has been she states it is too strong for her. She is dehydrated, unable to keep any solids or liquids down. MEDICATIONS: 1. Lipitor. 2. Xarelto. 3. Xanax. 4. Cordarone. 5. Neurontin. 6. Lopressor. 7. Zofran. 8. Compazine. ALLERGIES: Negative. REVIEW OF SYSTEMS: Fourteen point review of systems negative except for mentioned in HPI. PAST MEDICAL HISTORY: Colorectal cancer, 33 treatments chemoradiation completed, history CVA, history of GERD, CVA, TIA, cancer, cholecystectomy, permanent pacemaker. She is a former smoker, marijuana. FAMILY HISTORY: Mother DVT. Father negative. PHYSICAL EXAMINATION: Vital signs stable, afebrile. CARDIOVASCULAR: S1, S2. LUNGS: Clear. GI: Soft. HEMATOLOGY: Negative Homans. PSYCH: Fair mood and affect. OPHTHALMOLOGIC: Pupils equal, round, reactive to light and accommodation. NEUROLOGIC: Alert and oriented x3. Blood pressure 130s to 117 over 80 to 90s, temp 96.8, pulse 66 to 101, respirations 16 to 20, O2 of 98%, 99% on room air. EKG, atrial fibrillation. Creatinine 1.25. ASSESSMENT: 1. Dehydration, weakness nausea, vomiting. 2. Hypokalemia. 3. Hyponatremia. 4. Atrial fibrillation with rapid ventricular response. Replace electrolytes. Continue with fluid rehydration. Cardiology to see for atrial fibrillation. MMODL / IJN: [id number] /
[2017-12-18] MEDS: AMIODARONE 200 MG TAB PO SCH (08:31)
[2017-12-18] MEDS: METOPROLOL TARTRATE 12.5 MG TAB PO SCH ×2 (08:31→20:24)
[2017-12-18] MEDS: GABAPENTIN 100 MG CAP PO SCH ×2 (08:32→20:23)
[2017-12-18] MEDS ORDERED: PANTOPRAZOLE 40 MG/10 ML VIAL IVP SCH (09:00)
[2017-12-18] MEDS: SODIUM CHLORIDE 0.9% 1,000 ML IV SCH ×2 (11:53→20:24)
--- NOTE | 2017-12-18 12:03 | CONS ---
CONSULTATION Mrs. Adan is a 62-year-old female who was admitted with recurrent nausea and vomiting going on for the last few days. She has a history of colorectal cancer, status post surgery at [facility] and colostomy. She has been followed by Dr. Elder and is receiving chemotherapy for the last few days. She has been having progressive nausea and vomiting with poor oral intake. She has a history of sick sinus syndrome with paroxysmal atrial fibrillation and prior history of stroke. She has underwent permanent pacemaker implantation because of long pauses. She feels the palpitation of her heart when she is lying on the left side. She denies any associated chest pain. Her breathing is stable. She felt dizzy and presyncopal yesterday with the nausea and vomiting and the dehydration. She has no clear PND, orthopnea, or peripheral edema. She has no history of obstructive coronary artery disease. Her coronary risk factors are remarkable for a history of hyperlipidemia. She has prior history of smoking. She is nondiabetic. MEDICATIONS: At home include Xarelto, Zofran, Lopressor 12 0.5 mg twice a day, Neurontin, Lipitor 40 mg daily, Cordarone 200 mg daily. REVIEW OF SYSTEMS: RESPIRATORY SYSTEM: She has dyspnea. She has no cough or fever. GI SYSTEM: Nausea and vomiting with poor appetite. She is status post colostomy. SYSTEM: No dysuria, hematuria. NERVOUS SYSTEM: She had a prior history of stroke. PHYSICAL EXAMINATION: She is a 62-year-old female, alert, oriented, in no apparent distress. Blood pressure running in the low 100 with a heart rate in the 80s and 90s. HEAD: Normocephalic. EYES: Sclerae nonicteric. NECK: No bruit. LUNGS: Clear to auscultation. HEART: Irregularly irregular, S1, S2. No S3 with systolic murmur. No diastolic murmur. No rub. ABDOMEN: Soft. Colostomy in place. No organomegaly. EXTREMITIES: No edema. LAB DATA: Revealed a BUN and creatinine of 35 and 1.25, which is worse than it was in May 2017. Her potassium 3.4, hemoglobin of 16.2. Her AST is 88, ALT is 146. Troponin less than 0.012. Her EKG reveals atrial fibrillation with a rate of [address]-T wave changes. Her chest x-ray shows no acute infiltrate. IMPRESSION: 1. Persistent nausea and vomiting in a patient with history of malignancy, receiving chemotherapy. 2. Atrial fibrillation appears to be persistent at this time, was paroxysmal in the past. 3. Sick sinus syndrome, status post permanent pacemaker implantation. 4. History of hyperlipidemia. 5. Dehydration. RECOMMENDATION: I will hydrate the patient. Her left ventricular systolic function by transesophageal echocardiography in July of 2017 revealed a preserved ventricular size and systolic function. I will continue on the rest of medical regimen. I will check her thyroid function test. Depending on her progress, further recommendation will be made. Thank you for this consult. Will follow with you. MMODL / IJN: [id number] /
[2017-12-18 12:48] LABS: Albumin 4.1 g/dL (3.5-5.0); Calcium 9.1 mg/dL (8.4-10.2); Potassium 3.6 mmol/L (3.5-5.1); Total Protein 6.5 g/dL (6.3-8.2)
[2017-12-18 13:14] LABS: Anisocytosis Slight; HGB 15.1 gm/dL (11.4-16.0); Hyperchromasia Slight; MCH 31.5 pg (25.0-35.0); MCHC 36.1 g/dL (31.0-37.0); MCV 87.3 fL (80.0-100.0); Mean Platelet Volume 7.1; Platelet Count 187 k/uL (150-450); RBC 4.81 m/uL (3.80-5.40); RDW 16.4 % (11.5-15.5); WBC 3.3 k/uL (3.8-10.6)
[2017-12-18 13:42] LABS: Band Neutrophils % 1 %; Lymphocytes # (M) 1.19 k/uL (1.0-4.8); Monocytes # (M) 0.79 k/uL (0-1.0); Neutrophils % (M) 39 %; Nucleated Red Blood Cells 0 /100 WBC (0-0); Total Cells Counted 100
[2017-12-18] MEDS: RIVAROXABAN 20 MG TAB PO SCH (16:47)
--- NOTE | 2017-12-18 17:09 | PN ---
PROGRESS NOTE SUBJECTIVE: This is a 62-year-old white female with hyponatremia, hypokalemia, generalized weakness secondary to dehydration secondary to chemo side effect. Prerenal renal failure is improved. Her creatinine went from 1.25 to 0.9. Sodium went from 129 to 135. Potassium went from 3.4 to 3.6. White count is 3.3. CARDIOVASCULAR: S1, S2. LUNGS: Clear. GI: Increased bowel sounds. Colostomy bag intact. ASSESSMENT: 1. Dehydration. 2. Hypokalemia. 3. Hyponatremia secondary to progressive nausea and vomiting. 4. Acute chemotherapy side effects secondary to acute renal cancer. PLAN: Continue current treatment with rehydration. Increase appetite. Possible discharge home in the morning. MMODL / IJN: [id number] /
[2017-12-18] MEDS: ATORVASTATIN 40 MG TAB PO SCH (20:24)
--- NOTE | 2017-12-18 22:49 | P.CONS ---
History of Present Illness - Reason for Consult Consult date: 12/18/17 rectal adenocarcinoma, currently in treatment Requesting physician: Alessandro Joshi - Chief Complaint N,V, weakness - History of Present Illness Ms. Adan is a pleasant female of Dr. Elder who initially presented to Dr. Rod 01/09 because of complaints of blood in her stools, as well as difficulty and some pain in passing bowel movements, progressive over 6 months, associated with about 10 pounds in weight. Had a colonoscopy on 03/27/17, a circumferential ulcerated rectal mass at 10 cm from the anal verge was found, no evidence of obstruction, biopsy was positive for adenocarcinoma, CT AP showed rectal wall thickening, fat stranding of the mesorectal fat and a few prominent lymph nodes in the presacral space and mesorectal fat, measuring up to 6 mm, staging PET scan 04/13/17 showed no evidence of metastatic disease, EUS on 05/03/17 which revealed T3 N2 disease due to suggested involvement of 2 left iliac nodes. She started on chemo/radiation with Xeloda 05/12 with treatment delay in May due to a CVA. Treatment completed 07/10/17. She had low anterior resection with creation of ostomy with Dr. Alvarado on 09/12/17, there was 6 cm residual tumor on resection, 0/31 nodes involved. She was then started on adjuvant FOLFOX, and is status post 3 cycles, last seen in office on 12/09, plan was delay chemo 1 week and dose reduce by 10% due to side effects of neuropathy and overall poor tolerance. Pt is admitted for nausea, vomiting and dehydration secondary to chemo. She denied fever, chough, SOB, abd pain or distension, ostomy output is at baseline, no bleeding, dysuria or pain. Neuropathy is in fingertips only at this time. She is weak, appetite is starting to recover now that she has stopped having nausea, she is tired. Review of Systems 10 point ROS as stated in HPI Past Medical History Past Medical History: Cancer, CVA/TIA, GERD/Reflux Additional Past Medical History / Comment(s): colorectal cancer, 33 treatments chemo/radiation completed 07/10/17, CVA- 05/30/17 no residual effect, constipation History of Any Multi-Drug Resistant Organisms: None Reported Past Surgical History: Cholecystectomy, Pacemaker Additional Past Surgical History / Comment(s): colonoscopy 03/27/17, colorectal surgery to remove tumor 09/05/17 Past Anesthesia/Blood Transfusion Reactions: No Reported Reaction Additional Past Anesthesia/Blood Transfusion Reaction / Comm: no hx blood transfusion Type of Cardiac Device: Permanent Pacemaker Device Placement Date:: 08/21/17 Past Psychological History: No Psychological Hx Reported Smoking Status: Never smoker Past Alcohol Use History: None Reported Additional Past Alcohol Use History / Comment(s): quit smoking 1990,smoke approx 15 yrs 2ppd Past Drug Use History: Marijuana Additional Drug Use History / Comment(s): 1 joint marijuana daily - Past Family History Mother Family Medical History: Deep Vein Thrombosis (DVT) Additional Family Medical History / Comment(s): skin cancer Father Family Medical History: No Reported History Medications and Allergies Home Medications Medication Instructions Recorded Confirmed Type Atorvastatin [Lipitor] 40 mg PO HS 08/06/17 12/17/17 History Rivaroxaban [Xarelto] 20 mg PO W/SUPPER 10/28/17 12/17/17 History ALPRAZolam [Xanax] 0.5 mg PO DAILY PRN 12/17/17 12/17/17 History Amiodarone [Cordarone] 200 mg PO DAILY 12/17/17 12/17/17 History Gabapentin [Neurontin] 100 mg PO BID 12/17/17 12/17/17 History Metoprolol Tartrate [Lopressor] 12.5 mg PO BID 12/17/17 12/17/17 History Ondansetron HCl [Zofran] 4 mg PO Q8H PRN 12/17/17 12/17/17 History Prochlorperazine [Compazine] 10 mg PO Q8H PRN 12/17/17 12/17/17 History Allergies Allergy/AdvReac Type Severity Reaction Status Date / Time No Known Allergies Allergy Verified 12/17/17 11:34 Physical Exam Vitals: Vital Signs Temp Pulse Pulse Resp BP Pulse Ox 12/18/17 16:00 97.1 F L 82 18 95/62 99 12/18/17 15:31 79 84 12/18/17 11:58 79 84 12/18/17 11:56 97.4 F L 79 18 89/63 99 12/18/17 08:00 97.3 F L 101 H 84 18 101/73 98 12/18/17 05:55 96.5 F L 84 84 20 94/49 96 12/18/17 00:45 69 69 18 12/18/17 00:00 69 69 18 12/17/17 23:48 96.7 F L 69 69 18 89/52 97 12/17/17 20:00 97.1 F L 71 71 18 85/59 97 Intake and Output 12/18/17 12/18/17 12/18/17 06:59 14:59 22:59 Intake Total 400 240 Output Total 100 200 Balance 300 40 Intake: Intake, IV Titration 400 Amount Dextrose 5%-0.45% NaCl 1, 400 000 ml @ 100 mls/hr IV . Q10H ONE Rx#:[id number] Oral 240 Output: Stool 100 200 Other: Voiding Method Toilet Weight 56.6 kg 56.6 kg - Constitutional General appearance: cooperative, no acute distress, thin - EENT Eyes: anicteric sclerae ENT: normal oropharynx - Neck Neck: no lymphadenopathy - Respiratory Respiratory: bilateral: CTA - Cardiovascular Rhythm: regular Heart sounds: normal: S1, S2 Abnormal Heart Sounds: no systolic murmur, no diastolic murmur, no rub, no S3 Gallop, no S4 Gallop, no click, no other leg Peripheral Edema: bilateral: None - Gastrointestinal RLQ ostomy General gastrointestinal: normal bowel sounds, soft - Integumentary Integumentary: normal - Neurologic Neurologic: CNII-XII intact - Musculoskeletal Musculoskeletal: generalized weakness, strength equal bilaterally - Psychiatric Psychiatric: A&O x's 3, appropriate affect, intact judgment & insight Results CBC & Chem 7: 12/18/17 12:07 12/18/17 12:07 Labs: Abnormal Lab Results - Last 24 Hours (Table) 12/18/17 12/18/17 Range/Units 12:07 12:07 WBC 3.3 L (3.8-10.6) k/uL RDW 16.4 H (11.5-15.5) % Sodium 135 L (137-145) mmol/L Chloride 94 L (98-107) mmol/L BUN 18 H (7-17) mg/dL Glucose 118 H (74-99) mg/dL AST 64 H (14-36) U/L ALT 110 H (9-52) U/L Microbiology - Last 24 Hours (Table) 12/17/17 11:23 Blood Culture - Preliminary Blood No Growth after 24 hours 12/17/17 14:28 Urine Culture - Preliminary Urine,Voided Assessment and Plan (1) Rectal adenocarcinoma Narrative/Plan: Currently on adjuvant chemo. Her dose was delayed due to poor tolerance. She is going to have dose reduction with next cycle. She is due next week but, will be evaluated prior to giving. Current Visit: Yes Status: Acute Priority: High Code(s): C20 - MALIGNANT NEOPLASM OF RECTUM SNOMED Code(s): 358122624 (2) Dehydration Narrative/Plan: Secondary to nausea and vomiting from chemo. She is doing better today, nausea is better controlled, IV hydration helping recovery. Did review with pt the importance of using antiemetics as soon as she feels nausea vs waiting until she vomits. Also, encouraged her to call office sooner then later when she is having symptoms she cannot control. She verbalized understanding. Current Visit: Yes Status: Acute Priority: High Code(s): E86.0 - DEHYDRATION SNOMED Code(s): 47896384 (3) Intractable nausea and vomiting Narrative/Plan: Secondary to chemo, improved with IV medications and hydration. Pt is beginning to tolerate some liquid intake Current Visit: Yes Status: Acute Priority: High Code(s): R11.2 - NAUSEA WITH VOMITING, UNSPECIFIED SNOMED Code(s): 469879452 (4) Weakness Narrative/Plan: Due to above. Will see how pt does, encouraged ambulation to tolerance Current Visit: Yes Status: Acute Priority: High Code(s): R53.1 - WEAKNESS SNOMED Code(s): 18389385
[2017-12-19 05:47] LABS: HCT 36.6 % (34.0-46.0); HGB 13.1 gm/dL (11.4-16.0); MCH 31.2 pg (25.0-35.0); MCHC 35.8 g/dL (31.0-37.0); Mean Platelet Volume 7.6; Platelet Count 148 k/uL (150-450); RBC 4.21 m/uL (3.80-5.40); RDW 15.4 % (11.5-15.5); WBC 2.8 k/uL (3.8-10.6)
[2017-12-19 06:06] LABS: Anion Gap 13 mmol/L; Blood Urea Nitrogen 14 mg/dL (7-17); Calcium 8.6 mg/dL (8.4-10.2); Carbon Dioxide 21 mmol/L (22-30); Chloride 101 mmol/L (98-107); Glucose 127 mg/dL (74-99); Potassium 3.5 mmol/L (3.5-5.1); Sodium 135 mmol/L (137-145)
[2017-12-19 06:13] LABS: Lymphocytes # (M) 0.56 k/uL (1.0-4.8); Neutrophils # (M) 1.54 k/uL (1.3-7.7); Neutrophils % (M) 55 %; Nucleated Red Blood Cells 0 /100 WBC (0-0); Total Cells Counted 100
[2017-12-19] MEDS: PANTOPRAZOLE 40 MG TABLET PO SCH (06:15)
[2017-12-19] MEDS: METOPROLOL TARTRATE 12.5 MG TAB PO SCH ×2 (08:58→20:56)
[2017-12-19] MEDS: GABAPENTIN 100 MG CAP PO SCH ×2 (08:58→20:56)
[2017-12-19] MEDS: AMIODARONE 200 MG TAB PO SCH (08:58)
--- NOTE | 2017-12-19 13:44 | CDI ---
Last Revision, July 2017 Documentation Clarification Form Date: 12/19/17 From: Laney Young RN, CCDS Admit Date: 12/18/2017 2:25:00 PM Patient Name: Angely Adan Visit Number: [id number] Discharge Date: ATTENTION: The Clinical Documentation Specialists (CDI) and [facility] Coding Staff appreciate your assistance in clarifying documentation. Please respond to the clarification below the line at the bottom and electronically sign. The CDI & [facility] Coding staff will review the response and follow-up if needed. Please note: Queries are made part of the Legal Health Record. If you have any questions, please contact the author of this message via ITS. Dr. Everardo Prajapati Prerenal renal failure, improved was documented in your progress notes on History/Risk Factors: Rectal Adenocarcinoma Patients on admission: BUN 35, CR 1.25 GFR 46 Clinical Indicators: Present with weakness, vomiting, not feeling well. She is currently going through treatment for cancer with chemotherapy. She has decreased appetite, and weight loss. 12/19/17 BUN14, Cr 0.07 GFR >90 Treatment Monitor Labs IV Fluids In order to capture the severity of condition, please clarify if the condition signifies: Acute renal failure, Please specify etiology (if known): Acute kidney injury Acute on chronic renal failure CKD Stage 1 GFR >90 CKD Stage 2 GFR 60-89 CKD Stage 3 GFR 30-59 CKD Stage 4 GFR 15-29 CKD Stage 5 GFR <15 Other, please specify Unable to determine Please continue to document in your progress notes and discharge summary in order to capture severity of illness and risk of mortality. Include clinical findings that support your diagnosis. MTDD
[2017-12-19] MEDS: SODIUM CHLORIDE 0.9% 1,000 ML IV SCH ×2 (14:40→23:13)
--- NOTE | 2017-12-19 15:53 | P.PN ---
Subjective Progress Note Date: 12/19/17 Principal diagnosis: Nausea and vomiting This is a 62-year-old female admitted to the hospital with symptoms of recurrent nausea and vomiting, she is currently undergoing chemotherapy. Patient does have a history of paroxysmal atrial fibrillation, hyperlipidemia, and prior nicotine dependence. It appears at this time the patient is in a chronic persistent atrial fibrillation. Her blood pressure was noted to be low and the recommendation was to continue hydration. It appears that her hydration was stopped today, we would recommend at least another 12-18 hours of IV fluids at 100 mL per hour. Her left ventricular systolic function by transesophageal echocardiographic study in July 2017 revealed a preserved ventricular size and systolic function. White blood cell count 2.8, hemoglobin 13.1, platelet count 148, sodium 135, potassium 3.5, BUN 14, creatinine 0.7. Blood pressure today 82/50 with a heart rate in the 80s, 99% on room air. No further episodes of nausea and vomiting. Objective - Vital Signs Vital signs: Vital Signs Temp 97.0 F L 12/19/17 08:00 Pulse 78 12/19/17 12:00 Resp 20 12/19/17 04:00 BP 82/53 12/19/17 12:00 Pulse Ox 99 12/19/17 12:00 Intake & Output 12/18/17 12/19/17 12/19/17 18:59 06:59 18:59 Intake Total 480 410 20 Output Total 200 352 Balance 280 58 20 Weight 56.6 kg 59.4 kg Intake: Intake, IV Titration 20 Amount Sodium Chloride 0.9% 1, 20 000 ml @ 100 mls/hr IV . Q10H [facility] Rx#:[id number] Oral 480 410 Output: Urine 2 Stool 200 350 Other: Voiding Method Toilet # Voids 2 - Exam PHYSICAL EXAMINATION: HEENT: Head is atraumatic, normocephalic. Pupils equal, round. Neck is supple. There is no elevated jugular venous pressure. HEART EXAMINATION: Heart S1 and S2 irregularly irregular a systolic murmur is heard. CHEST EXAMINATION: Lungs are clear to auscultation and precussion. No chest wall tenderness is noted on palpation or with deep breathing. ABDOMEN: Soft, nontender. Colostomy in place. Bowel sounds are heard. No organomegaly noted. EXTREMITIES: 2+ peripheral pulses with no evidence of peripheral edema and no calf tenderness noted. NEUROLOGIC patient is awake, alert and oriented -3. . - Labs CBC & Chem 7: 12/19/17 05:30 12/19/17 05:30 Labs: Abnormal Lab Results - Last 24 Hours (Table) 12/19/17 12/19/17 Range/Units 05:30 05:30 WBC 2.8 L (3.8-10.6) k/uL Plt Count 148 L (150-450) k/uL Lymphocytes # (Manual) 0.56 L (1.0-4.8) k/uL Sodium 135 L (137-145) mmol/L Carbon Dioxide 21 L (22-30) mmol/L Glucose 127 H (74-99) mg/dL Microbiology - Last 24 Hours (Table) 12/17/17 11:23 Blood Culture - Preliminary Blood No Growth after 48 hours 12/17/17 14:28 Urine Culture - Final Urine,Voided Assessment and Plan Plan: Assessment and plan #1 persistent nausea and vomiting in a patient with history of malignancy receiving chemotherapy #2 chronic persistent atrial fibrillation #3 sinus syndrome status post permanent pacemaker implantation #4 history of hyperlipidemia #5 hypotension, likely secondary to dehydration Plan We will recommend to continue IV hydration and the patient for another 12-18 hours, 100 mL per hour. Her LV function is normal. Continue amiodarone, metoprolol 12-1/2 twice a day, and xarelto 20 mg daily. DNP note has been reviewed, I agree with a documented findings and plan of care. Patient was seen and examined.
--- NOTE | 2017-12-19 17:19 | P.PN ---
Subjective Progress Note Date: 12/19/17 Principal diagnosis: N,V, weakness from chemo Objective - Vital Signs Vital signs: Vital Signs Temp 97.0 F L 12/19/17 08:00 Pulse 78 12/19/17 12:00 Resp 20 12/19/17 04:00 BP 82/53 12/19/17 12:00 Pulse Ox 99 12/19/17 12:00 Intake & Output 12/18/17 12/19/17 12/19/17 18:59 06:59 18:59 Intake Total 480 410 20 Output Total 200 352 Balance 280 58 20 Weight 56.6 kg 59.4 kg Intake: Intake, IV Titration 20 Amount Sodium Chloride 0.9% 1, 20 000 ml @ 100 mls/hr IV . Q10H [facility] Rx#:[id number] Oral 480 410 Output: Urine 2 Stool 200 350 Other: Voiding Method Toilet # Voids 2 - Constitutional General appearance: Present: cooperative, disheveled, thin - EENT Eyes: Present: anicteric sclerae, EOMI ENT: Present: normal oropharynx - Respiratory Respiratory: bilateral: CTA - Cardiovascular Rhythm: regular Heart sounds: normal: S1, S2 - Peripheral edema leg Peripheral Edema: bilateral: None - Gastrointestinal General gastrointestinal: Present: normal bowel sounds, soft - Integumentary Integumentary: Present: normal - Neurologic Neurologic: Present: CNII-XII intact - Musculoskeletal Musculoskeletal: Present: generalized weakness - Psychiatric Psychiatric: Present: A&O x's 3, appropriate affect, intact judgment & insight - Labs CBC & Chem 7: 12/19/17 05:30 12/19/17 05:30 Labs: Abnormal Lab Results - Last 24 Hours (Table) 12/19/17 12/19/17 Range/Units 05:30 05:30 WBC 2.8 L (3.8-10.6) k/uL Plt Count 148 L (150-450) k/uL Lymphocytes # (Manual) 0.56 L (1.0-4.8) k/uL Sodium 135 L (137-145) mmol/L Carbon Dioxide 21 L (22-30) mmol/L Glucose 127 H (74-99) mg/dL Microbiology - Last 24 Hours (Table) 12/17/17 11:23 Blood Culture - Preliminary Blood No Growth after 48 hours 12/17/17 14:28 Urine Culture - Final Urine,Voided Assessment and Plan (1) Rectal adenocarcinoma Narrative/Plan: Currently on adjuvant chemo. Reviewed case with Dr. Elder, chemo is being dose reduced. She is due next week but, assured pt that she will be evaluated prior to administering. We reviewed reason for adjuvant therapy. All her questions were answered to the best of my ability Appt for next week is in chart Current Visit: Yes Status: Acute Priority: High Code(s): C20 - MALIGNANT NEOPLASM OF RECTUM SNOMED Code(s): 710075920 (2) Dehydration Narrative/Plan: Improving, pt is tolerating oral intake Current Visit: Yes Status: Acute Priority: High Code(s): E86.0 - DEHYDRATION SNOMED Code(s): 31617478 (3) Intractable nausea and vomiting Current Visit: Yes Status: Resolved Priority: High Code(s): R11.2 - NAUSEA WITH VOMITING, UNSPECIFIED SNOMED Code(s): 170219310 (4) Weakness Narrative/Plan: Most concerning, pt does need to work on PS. Again, she will be evaluated prior to chemo to ensure PS improvement Current Visit: Yes Status: Acute Priority: High Code(s): R53.1 - WEAKNESS SNOMED Code(s): 33559059
[2017-12-19] MEDS: RIVAROXABAN 20 MG TAB PO SCH (17:39)
[2017-12-19] MEDS: ATORVASTATIN 40 MG TAB PO SCH (20:56)
[2017-12-19 21:56] VITALS: RESP 18
--- NOTE | 2017-12-19 22:33 | PN ---
PROGRESS NOTE A 62-year-old white female with anal cancer, status post severe dehydration with metabolic abnormality secondary to dehydration, chemo side effects. Blood pressure is a bit low. Beta blockers have been continued, despite low blood pressures. Try ambulation, see if she is dizzy and have orthostatics today. Temperature is 97, pulse 70s-80s, blood pressure is 82-102 systolic over 53-62, O2 sat 99% on room air. CARDIOVASCULAR: S1, S2. LUNGS: Transmitted upper airway sounds. ABDOMEN: Soft. HEMATOLOGY: Negative Homans'. ASSESSMENT: 1. Hypokalemia. 2. Dehydration, chemo side effect with gastroenteritis. 3. Atrial fibrillation. 4. Hypertension. Cardiology is evaluating cardiac meds. Electrolytes are being replaced. Possible discharge home in the next 24-48 hours. MMODL / IJN: [id number] /
[2017-12-20] MEDS: PANTOPRAZOLE 40 MG TABLET PO SCH (06:36)
[2017-12-20 06:44] LABS: Basophils % (A) 0 %; Eosinophils # (A) 0.1 k/uL (0-0.7); Eosinophils % (A) 2 %; HCT 35.8 % (34.0-46.0); HGB 12.3 gm/dL (11.4-16.0); Lymphocytes # (A) 0.9 k/uL (1.0-4.8); Lymphocytes % (A) 31 %; MCH 30.3 pg (25.0-35.0); MCHC 34.4 g/dL (31.0-37.0); MCV 88.1 fL (80.0-100.0); Mean Platelet Volume 7.2; Monocytes # (A) 0.5 k/uL (0-1.0); Monocytes % (A) 17 %; Neutrophils # (A) 1.3 k/uL (1.3-7.7); Neutrophils % (A) 46 %; Platelet Count 141 k/uL (150-450); RBC 4.06 m/uL (3.80-5.40); RDW 15.4 % (11.5-15.5); WBC 2.8 k/uL (3.8-10.6)
[2017-12-20 07:05] LABS: ALT 63 U/L (9-52); AST 33 U/L (14-36); Albumin 2.8 g/dL (3.5-5.0); Alkaline Phosphatase 90 U/L (38-126); Anion Gap 10 mmol/L; Blood Urea Nitrogen 11 mg/dL (7-17); Calcium 8.5 mg/dL (8.4-10.2); Carbon Dioxide 21 mmol/L (22-30); Chloride 105 mmol/L (98-107); Glucose 91 mg/dL (74-99); Potassium 3.9 mmol/L (3.5-5.1); Sodium 136 mmol/L (137-145); Total Bilirubin 0.5 mg/dL (0.2-1.3)
[2017-12-20] MEDS: METOPROLOL TARTRATE 12.5 MG TAB PO SCH (08:22)
[2017-12-20] MEDS: GABAPENTIN 100 MG CAP PO SCH (08:22)
[2017-12-20] MEDS: SODIUM CHLORIDE 0.9% 1,000 ML IV SCH (08:22)
[2017-12-20] MEDS: AMIODARONE 200 MG TAB PO SCH (08:23)
[2017-12-20 08:26] VITALS: TEMP 96.1
[2017-12-20 11:32] VITALS: BMI 20.7
[2017-12-20 14:39] VITALS: BP 89/69; PULSE 80
--- NOTE | 2017-12-20 14:47 | P.PN ---
Subjective Progress Note Date: 12/20/17 Principal diagnosis: Nausea and vomiting This is a 62-year-old female admitted to the hospital with symptoms of recurrent nausea and vomiting, she is currently undergoing chemotherapy. Patient does have a history of paroxysmal atrial fibrillation, hyperlipidemia, and prior nicotine dependence. It appears at this time the patient is in a chronic persistent atrial fibrillation. Her blood pressure was noted to be low and the recommendation was to continue hydration. It appears that her hydration was stopped today, we would recommend at least another 12-18 hours of IV fluids at 100 mL per hour. Her left ventricular systolic function by transesophageal echocardiographic study in July 2017 revealed a preserved ventricular size and systolic function. White blood cell count 2.8, hemoglobin 13.1, platelet count 148, sodium 135, potassium 3.5, BUN 14, creatinine 0.7. Blood pressure today 82/50 with a heart rate in the 80s, 99% on room air. No further episodes of nausea and vomiting. 12/20/2017 Patient seen and examined this morning, blood pressure 94/60 with a heart rate in the 80s today. From cardiology's perspective, she may be able to be discharged once cleared by primary and we will make her a follow-up appointment to see Dr. Kennedy in the office 3-4 weeks post discharge. Objective - Vital Signs Vital signs: Vital Signs Temp 96.1 F L 12/20/17 08:00 Pulse 80 12/20/17 12:00 Resp 18 12/20/17 03:12 BP 89/69 12/20/17 12:00 Pulse Ox 100 12/20/17 12:00 Intake & Output 12/19/17 12/20/17 12/20/17 18:59 06:59 18:59 Intake Total 520 1040 600 Output Total 1050 Balance -530 1040 600 Weight 58.2 kg 58.2 kg Intake: Intake, IV Titration 20 800 Amount Sodium Chloride 0.9% 1, 20 800 000 ml @ 100 mls/hr IV . Q10H [facility] Rx#:[id number] Oral 500 240 600 Output: Urine 900 Stool 150 Other: Voiding Method Toilet # Voids 1 1 # Bowel Movements 0 - Exam PHYSICAL EXAMINATION: HEENT: Head is atraumatic, normocephalic. Pupils equal, round. Neck is supple. There is no elevated jugular venous pressure. HEART EXAMINATION: Heart S1 and S2 irregularly irregular a systolic murmur is heard. CHEST EXAMINATION: Lungs are clear to auscultation and precussion. No chest wall tenderness is noted on palpation or with deep breathing. ABDOMEN: Soft, nontender. Colostomy in place. Bowel sounds are heard. No organomegaly noted. EXTREMITIES: 2+ peripheral pulses with no evidence of peripheral edema and no calf tenderness noted. NEUROLOGIC patient is awake, alert and oriented -3. . - Labs CBC & Chem 7: 12/20/17 06:22 12/20/17 06:22 Labs: Abnormal Lab Results - Last 24 Hours (Table) 12/20/17 12/20/17 Range/Units 06:22 06:22 WBC 2.8 L (3.8-10.6) k/uL Plt Count 141 L (150-450) k/uL Lymphocytes # 0.9 L (1.0-4.8) k/uL Sodium 136 L (137-145) mmol/L Carbon Dioxide 21 L (22-30) mmol/L ALT 63 H (9-52) U/L Total Protein 5.0 L (6.3-8.2) g/dL Albumin 2.8 L (3.5-5.0) g/dL Microbiology - Last 24 Hours (Table) 12/17/17 11:23 Blood Culture - Preliminary Blood No Growth after 72 hours Assessment and Plan Plan: Assessment and plan #1 persistent nausea and vomiting in a patient with history of malignancy receiving chemotherapy #2 chronic persistent atrial fibrillation #3 sinus syndrome status post permanent pacemaker implantation #4 history of hyperlipidemia #5 hypotension, likely secondary to dehydration Plan From cardiology's perspective, we will recommend to continue the patient on her current medications. She may be able to be discharged home once cleared by primary, we will make her a follow-up appointment with Dr. Kennedy in the office 3-4 weeks post discharge. DNP note has been reviewed, I agree with a documented findings and plan of care. Patient was seen and examined.
--- NOTE | 2017-12-25 14:21 | CDI ---
Last Revision, July 2017 Documentation Clarification Form Date: 12/19/17 From: Laney Young RN, CCDS Admit Date: 12/18/2017 2:25:00 PM Patient Name: Angely Adan Visit Number: [id number] Discharge Date: ATTENTION: The Clinical Documentation Specialists (CDI) and [facility] Coding Staff appreciate your assistance in clarifying documentation. Please respond to the clarification below the line at the bottom and electronically sign. The CDI & [facility] Coding staff will review the response and follow-up if needed. Please note: Queries are made part of the Legal Health Record. If you have any questions, please contact the author of this message via ITS. Dr. Everardo Prajapati Prerenal renal failure, improved was documented in your progress notes on History/Risk Factors: Rectal Adenocarcinoma Patients on admission: BUN 35, CR 1.25 GFR 46 Clinical Indicators: Present with weakness, vomiting, not feeling well. She is currently going through treatment for cancer with chemotherapy. She has decreased appetite, and weight loss. 12/19/17 BUN14, Cr 0.07 GFR >90 Treatment Monitor Labs IV Fluids In order to capture the severity of condition, please clarify if the condition signifies: Acute renal failure, Please specify etiology (if known): Acute kidney injury Acute on chronic renal failure CKD Stage 1 GFR >90 CKD Stage 2 GFR 60-89 CKD Stage 3 GFR 30-59 CKD Stage 4 GFR 15-29 CKD Stage 5 GFR <15 Other, please specify Unable to determine Please continue to document in your progress notes and discharge summary in order to capture severity of illness and risk of mortality. Include clinical findings that support your diagnosis. MTDD
--- NOTE | 2017-12-25 20:03 | DS ---
DISCHARGE SUMMARY ADDENDUM: 1. Acute kidney injury. 2. Chronic kidney disease stage 2. MMODL / IJN: [id number] /
== END 2017-12-20 16:14 | disposition home or self-care (01) | DRG 641 ==
LOC: EC 10:43 → 6SEL 15:44 → OBSVTOIN 12-18 14:25
PROVIDERS: ADMIT Family Medicine; ATTEND Family Medicine
DX: E86.0 Dehydration (principal); C20 Malignant neoplasm of rectum; N17.9 Acute kidney failure, unspecified; E87.1 Hypo-osmolality and hyponatremia; E78.5 Hyperlipidemia, unspecified; E87.6 Hypokalemia; G62.9 Polyneuropathy, unspecified; I10 Essential (primary) hypertension; I48.2 Chronic atrial fibrillation; K21.9 Gastro-esophageal reflux disease without esophagitis; N18.2 Chronic kidney disease, stage 2 (mild); K52.9 Noninfective gastroenteritis and colitis, unspecified; I12.9 Hypertensive chronic kidney disease with stage 1 through stage 4 chronic kidney disease, or unspecified chronic kidney disease; T45.1X5A Adverse effect of antineoplastic and immunosuppressive drugs, initial encounter; Z79.01 Long term (current) use of anticoagulants; Z79.899 Other long term (current) drug therapy; Z80.8 Family history of malignant neoplasm of other organs or systems; Z86.73 Personal history of transient ischemic attack (TIA), and cerebral infarction without residual deficits; Z87.891 Personal history of nicotine dependence; Z92.3 Personal history of irradiation; Z93.3 Colostomy status; Z95.0 Presence of cardiac pacemaker; Z84.89 Family history of other specified conditions
CPT/HCPCS: 36415; 71046; 80048; 80053; 81003; 82550; 82553; 83605; 83735; 84100; 84443; 84484; 85025; 85610; 85730; 86850; 86900; 86901; 87040; 87086; 93005; 96361; 96374; 99285

== ENCOUNTER 2018-01-21 16:47 | Emergency (ER) | payer BC ==
[2018-01-21 17:00] VITALS: RESP 18; TEMP 98.1
[2018-01-21] MEDS ORDERED: ALBUTEROL NEBULIZED 2.5 MG/3 ML INHALATION STA (17:08)
--- NOTE | 2018-01-21 17:24 | ED ---
General Adult HPI - General Chief complaint: Allergic Reaction Stated complaint: Allergic reaction Time Seen by Provider: 01/21/18 16:58 Source: patient, RN notes reviewed, old records reviewed Mode of arrival: wheelchair Limitations: no limitations - History of Present Illness Initial comments: This is a 62-year-old female to the ER for evaluation. Said he is presenting for evaluation regards to ALLERGIC reaction while having chemotherapy today. Patient resents to ER evaluation feeling better with mild wheezing and continued shortness of breath. This was her fifth treatment and she had no prior reactions - Related Data Home Medications Medication Instructions Recorded Confirmed Atorvastatin [Lipitor] 40 mg PO HS 08/06/17 01/21/18 Rivaroxaban [Xarelto] 20 mg PO W/SUPPER 10/28/17 01/21/18 ALPRAZolam [Xanax] 0.5 mg PO DAILY PRN 12/17/17 01/21/18 Amiodarone [Cordarone] 200 mg PO DAILY 12/17/17 01/21/18 Metoprolol Tartrate [Lopressor] 12.5 mg PO BID 12/17/17 01/21/18 Ondansetron HCl [Zofran] 4 mg PO Q8H PRN 12/17/17 01/21/18 Prochlorperazine [Compazine] 10 mg PO Q8H PRN 12/17/17 01/21/18 Previous Rx's Medication Instructions Recorded Famotidine [Pepcid] 20 mg PO BID #28 tablet 01/21/18 hydrOXYzine HCL [Atarax] 25 mg PO TID PRN #15 tab 01/21/18 predniSONE 50 mg PO DAILY #5 tab 01/21/18 Allergies Allergy/AdvReac Type Severity Reaction Status Date / Time No Known Allergies Allergy Verified 01/21/18 17:05 Review of Systems ROS Statement: Those systems with pertinent positive or pertinent negative responses have been documented in the HPI. ROS Other: All systems not noted in ROS Statement are negative. Past Medical History Past Medical History: Cancer, CVA/TIA, GERD/Reflux Additional Past Medical History / Comment(s): colorectal cancer, 33 treatments chemo/radiation completed 07/10/17, CVA- 05/30/17 no residual effect, constipation History of Any Multi-Drug Resistant Organisms: None Reported Past Surgical History: Cholecystectomy, Pacemaker Additional Past Surgical History / Comment(s): colonoscopy 03/27/17, colorectal surgery to remove tumor 09/05/17 Past Anesthesia/Blood Transfusion Reactions: No Reported Reaction Additional Past Anesthesia/Blood Transfusion Reaction / Comment(s): no hx blood transfusion Type of Cardiac Device: Permanent Pacemaker Device Placement Date:: 08/21/17 Past Psychological History: No Psychological Hx Reported Smoking Status: Never smoker Past Alcohol Use History: None Reported Past Drug Use History: Marijuana - Past Family History Mother Family Medical History: Deep Vein Thrombosis (DVT) Additional Family Medical History / Comment(s): skin cancer Father Family Medical History: No Reported History General Exam Limitations: no limitations General appearance: alert, in no apparent distress Head exam: Present: atraumatic, normocephalic, normal inspection Eye exam: Present: normal appearance, PERRL, EOMI. Absent: scleral icterus, conjunctival injection, periorbital swelling ENT exam: Present: normal exam, mucous membranes moist Neck exam: Present: normal inspection. Absent: tenderness, meningismus, lymphadenopathy Respiratory exam: Present: normal lung sounds bilaterally, wheezes. Absent: respiratory distress, rales, rhonchi, stridor Cardiovascular Exam: Present: regular rate, normal rhythm, normal heart sounds. Absent: systolic murmur, diastolic murmur, rubs, gallop, clicks GI/Abdominal exam: Present: soft, normal bowel sounds. Absent: distended, tenderness, guarding, rebound, rigid Extremities exam: Present: normal inspection, full ROM, normal capillary refill. Absent: tenderness, pedal edema, joint swelling, calf tenderness Back exam: Present: normal inspection Neurological exam: Present: alert, oriented X3, CN II-XII intact Psychiatric exam: Present: normal affect, normal mood Skin exam: Present: warm, dry, intact, normal color. Absent: rash Course Vital Signs 01/21/18 01/21/18 01/21/18 16:57 17:16 17:26 Temperature 98.1 F Pulse Rate 84 93 95 Respiratory 18 Rate Blood Pressure 111/84 O2 Sat by Pulse 100 Oximetry 01/21/18 18:26 Temperature Pulse Rate 102 H Respiratory 18 Rate Blood Pressure 105/65 O2 Sat by Pulse 98 Oximetry - Reevaluation(s) Reevaluation #1: 01/21/18 18:52 Patient states she is a symptomatically symptoms resolved EKG Findings - EKG Comments: EKG Findings:: EKG shows paced rhythm rate of 88, QRS 96, QTC 531 Medical Decision Making - Medical Decision Making 62 female the ER with ALLERGIC reaction likely chemotherapy. Patient has good improvement in symptoms at this time can be discharged home Disposition Clinical Impression: Allergic reaction, Adverse reaction to drug Disposition: HOME SELF-CARE Condition: Good Instructions: Anaphylaxis (ED) Prescriptions: Famotidine [Pepcid] 20 mg PO BID #28 tablet hydrOXYzine HCL [Atarax] 25 mg PO TID PRN #15 tab PRN Reason: Itching predniSONE 50 mg PO DAILY #5 tab Is patient prescribed a controlled substance at d/c from ED?: No Referrals: Everardo Prajapati MD [Primary Care Provider] - 1-2 days
[2018-01-21 18:27] VITALS: BP 105/65; PULSE 102
--- NOTE | 2018-01-21 18:34 | XR ---
EXAMINATION TYPE: XR chest 1V portable DATE OF EXAM: 01/21/2018 COMPARISON: Prior chest 12/17/2017 HISTORY: Shortness of breath and pain TECHNIQUE: Single frontal view of the chest is obtained. FINDINGS: There is no focal air space opacity, pleural effusion, or pneumothorax seen. The cardiac silhouette size is within normal limits. The osseous structures are intact. Patient is rotated. Pac emaker stable. There are overlying cardiac leads. Port-A-Cath is unchanged. IMPRESSION: No acute process.
== END 2018-01-21 18:54 | disposition home or self-care (01) ==
LOC: EC 16:47
DX: R06.02 Shortness of breath (principal); T50.905A Adverse effect of unspecified drugs, medicaments and biological substances, initial encounter; K21.9 Gastro-esophageal reflux disease without esophagitis; Z86.73 Personal history of transient ischemic attack (TIA), and cerebral infarction without residual deficits; Z85.038 Personal history of other malignant neoplasm of large intestine; Z90.49 Acquired absence of other specified parts of digestive tract; Z95.0 Presence of cardiac pacemaker; Z79.01 Long term (current) use of anticoagulants; Z79.899 Other long term (current) drug therapy
CPT/HCPCS: 94640; 93005; 71045; 99284; 96374; J1642

== ENCOUNTER 2018-02-06 08:50 | Inpatient (IN) | payer BC ==
[2018-02-06] MEDS ORDERED: SODIUM CHLORIDE 0.9% 500 ML IV STA (09:13)
[2018-02-06] MEDS ORDERED: ASPIRIN 81 MG PO STA (09:13)
--- NOTE | 2018-02-06 09:16 | ED ---
General Adult HPI - General Chief complaint: Chest Pain Stated complaint: Chest Pain Time Seen by Provider: 02/06/18 08:58 Source: patient, RN notes reviewed Mode of arrival: ambulatory Limitations: no limitations - History of Present Illness Initial comments: Patient is a pleasant 62-year-old female presenting to the emergency Department with chest discomfort and palpitations. Patient does have a history of rectal cancer and is currently under treatment with chemotherapy. Onset of discomfort was 2 days ago. Symptoms have been waxing and waning. Patient has pressure more towards the right side. Patient feels palpitations more in the left side. Patient does have a history of atrial fibrillation and does take anticoagulation for this. Patient does have some associated dyspnea. Patient has some associated nausea however nausea is chronic. No diaphoresis. - Related Data Home Medications Medication Instructions Recorded Confirmed Atorvastatin [Lipitor] 40 mg PO HS 08/06/17 02/06/18 Rivaroxaban [Xarelto] 20 mg PO W/SUPPER 10/28/17 02/06/18 ALPRAZolam [Xanax] 0.5 mg PO DAILY PRN 12/17/17 02/06/18 Metoprolol Tartrate [Lopressor] 12.5 mg PO BID 12/17/17 02/06/18 Ondansetron HCl [Zofran] 4 mg PO BID 12/17/17 02/06/18 Famotidine [Pepcid] 20 mg PO DAILY 02/06/18 02/06/18 Allergies Allergy/AdvReac Type Severity Reaction Status Date / Time No Known Allergies Allergy Verified 02/06/18 09:09 Review of Systems ROS Statement: Those systems with pertinent positive or pertinent negative responses have been documented in the HPI. ROS Other: All systems not noted in ROS Statement are negative. Constitutional: Denies: fever Eyes: Denies: eye pain ENT: Denies: ear pain Respiratory: Reports: dyspnea Cardiovascular: Reports: chest pain, palpitations Endocrine: Reports: fatigue Gastrointestinal: Reports: nausea. Denies: abdominal pain Genitourinary: Denies: dysuria Musculoskeletal: Denies: back pain Skin: Denies: rash Neurological: Denies: headache Past Medical History Past Medical History: Cancer, CVA/TIA, GERD/Reflux Additional Past Medical History / Comment(s): colorectal cancer, 33 treatments chemo/radiation completed 07/10/17, CVA- 05/30/17 no residual effect, constipation History of Any Multi-Drug Resistant Organisms: None Reported Past Surgical History: Cholecystectomy, Pacemaker Additional Past Surgical History / Comment(s): colonoscopy 03/27/17, colorectal surgery to remove tumor 09/05/17 Past Anesthesia/Blood Transfusion Reactions: No Reported Reaction Additional Past Anesthesia/Blood Transfusion Reaction / Comment(s): no hx blood transfusion Type of Cardiac Device: Permanent Pacemaker Device Placement Date:: 08/21/17 Past Psychological History: No Psychological Hx Reported Smoking Status: Never smoker Past Alcohol Use History: None Reported Past Drug Use History: Marijuana - Past Family History Mother Family Medical History: Deep Vein Thrombosis (DVT) Additional Family Medical History / Comment(s): skin cancer Father Family Medical History: No Reported History General Exam Limitations: no limitations General appearance: alert, in no apparent distress Head exam: Present: atraumatic Eye exam: Present: normal appearance, PERRL ENT exam: Present: normal oropharynx Neck exam: Present: normal inspection Respiratory exam: Present: normal lung sounds bilaterally. Absent: chest wall tenderness Cardiovascular Exam: Present: irregular rhythm GI/Abdominal exam: Present: soft. Absent: tenderness Extremities exam: Present: normal inspection. Absent: pedal edema, calf tenderness Neurological exam: Present: alert Psychiatric exam: Present: normal affect, normal mood Skin exam: Present: normal color Course Vital Signs 02/06/18 02/06/18 02/06/18 08:51 09:42 11:16 Temperature 97.8 F Pulse Rate 73 100 Pulse Rate [ 73 [employer] ] Respiratory 20 18 Rate Blood Pressure 73/48 96/54 O2 Sat by Pulse 97 100 Oximetry EKG Findings - EKG Comments: EKG Findings:: A. fib with rate of 100. QRS 98. QT 334. QTC 4:30. Right axis. Normal QRS. No acute ST change Medical Decision Making - Medical Decision Making Patient reevaluated and resting comfortably in bed. Patient states she is feeling much better. Case was discussed with Dr. Becerril, who will admit for Dr. Prajapati. - Lab Data Result diagrams: 02/06/18 09:40 02/06/18 09:40 Lab Results 02/06/18 02/06/18 02/06/18 Range/Units 09:40 09:40 09:40 WBC 2.6 L (3.8-10.6) k/uL RBC 4.23 (3.80-5.40) m/uL Hgb 13.9 (11.4-16.0) gm/dL Hct 38.7 (34.0-46.0) % MCV 91.7 (80.0-100.0) fL MCH 32.8 (25.0-35.0) pg MCHC 35.8 (31.0-37.0) g/dL RDW 17.8 H (11.5-15.5) % Plt Count 182 (150-450) k/uL Neutrophils % (Manual) 43 % Band Neutrophils % 1 % Lymphocytes % (Manual) 28 % Monocytes % (Manual) 27 % Basophils % (Manual) 1 % Neutrophils # (Manual) 1.10 L (1.3-7.7) k/uL Lymphocytes # (Manual) 0.73 L (1.0-4.8) k/uL Monocytes # (Manual) 0.70 (0-1.0) k/uL Basophils # (Manual) 0.03 (0-0.2) k/uL Nucleated RBCs 0 (0-0) /100 WBC Manual Slide Review Performed Polychromasia Present Hyperchromasia Slight Poikilocytosis (manual Present Anisocytosis Slight PT (9.0-12.0) sec INR (<1.2) APTT (22.0-30.0) sec Sodium 129 L (137-145) mmol/L Potassium 2.9 L* (3.5-5.1) mmol/L Chloride 83 L (98-107) mmol/L Carbon Dioxide 29 (22-30) mmol/L Anion Gap 17 mmol/L BUN 30 H (7-17) mg/dL Creatinine 1.58 H (0.52-1.04) mg/dL Est GFR (CKD-EPI)AfAm 40 (>60 ml/min/1.73 sqM) Est GFR (CKD-EPI)NonAf 35 (>60 ml/min/1.73 sqM) Glucose 129 H (74-99) mg/dL Calcium 9.4 (8.4-10.2) mg/dL Magnesium 1.7 (1.6-2.3) mg/dL Total Bilirubin 1.5 H (0.2-1.3) mg/dL AST 55 H (14-36) U/L ALT 70 H (9-52) U/L Alkaline Phosphatase 132 H (38-126) U/L Total Creatine Kinase 22 L (30-135) U/L CK-MB (CK-2) 0.3 (0.0-2.4) ng/mL CK-MB (CK-2) Rel Index 1.4 Troponin I <0.012 (0.000-0.034) ng/mL Total Protein 7.2 (6.3-8.2) g/dL Albumin 4.5 (3.5-5.0) g/dL 02/06/18 Range/Units 09:40 WBC (3.8-10.6) k/uL RBC (3.80-5.40) m/uL Hgb (11.4-16.0) gm/dL Hct (34.0-46.0) % MCV (80.0-100.0) fL MCH (25.0-35.0) pg MCHC (31.0-37.0) g/dL RDW (11.5-15.5) % Plt Count (150-450) k/uL Neutrophils % (Manual) % Band Neutrophils % % Lymphocytes % (Manual) % Monocytes % (Manual) % Basophils % (Manual) % Neutrophils # (Manual) (1.3-7.7) k/uL Lymphocytes # (Manual) (1.0-4.8) k/uL Monocytes # (Manual) (0-1.0) k/uL Basophils # (Manual) (0-0.2) k/uL Nucleated RBCs (0-0) /100 WBC Manual Slide Review Polychromasia Hyperchromasia Poikilocytosis (manual Anisocytosis PT 15.2 H (9.0-12.0) sec INR 1.7 H (<1.2) APTT 79.0 H (22.0-30.0) sec Sodium (137-145) mmol/L Potassium (3.5-5.1) mmol/L Chloride (98-107) mmol/L Carbon Dioxide (22-30) mmol/L Anion Gap mmol/L BUN (7-17) mg/dL Creatinine (0.52-1.04) mg/dL Est GFR (CKD-EPI)AfAm (>60 ml/min/1.73 sqM) Est GFR (CKD-EPI)NonAf (>60 ml/min/1.73 sqM) Glucose (74-99) mg/dL Calcium (8.4-10.2) mg/dL Magnesium (1.6-2.3) mg/dL Total Bilirubin (0.2-1.3) mg/dL AST (14-36) U/L ALT (9-52) U/L Alkaline Phosphatase (38-126) U/L Total Creatine Kinase (30-135) U/L CK-MB (CK-2) (0.0-2.4) ng/mL CK-MB (CK-2) Rel Index Troponin I (0.000-0.034) ng/mL Total Protein (6.3-8.2) g/dL Albumin (3.5-5.0) g/dL - Radiology Data Radiology results: image reviewed (Chest x-ray shows some chronic changes without acute process.) Disposition Clinical Impression: Chest pain, Atrial fibrillation with RVR, Dehydration, Hypokalemia Disposition: ADMITTED IP TO THIS HOSP Is patient prescribed a controlled substance at d/c from ED?: No Referrals: Everardo Prajapati MD [Primary Care Provider] - 1-2 days Decision Time: 11:22
[2018-02-06] MEDS ORDERED: SODIUM CHLORIDE 0.9% 1,000 ML IV STA (09:17)
[2018-02-06 10:03] LABS: Anisocytosis Slight; HCT 38.7 % (34.0-46.0); HGB 13.9 gm/dL (11.4-16.0); Hyperchromasia Slight; MCH 32.8 pg (25.0-35.0); MCHC 35.8 g/dL (31.0-37.0); MCV 91.7 fL (80.0-100.0); Platelet Count 182 k/uL (150-450); RBC 4.23 m/uL (3.80-5.40); RDW 17.8 % (11.5-15.5); WBC 2.6 k/uL (3.8-10.6)
[2018-02-06 10:04] LABS: Albumin 4.5 g/dL (3.5-5.0); Calcium 9.4 mg/dL (8.4-10.2); Magnesium 1.7 mg/dL (1.6-2.3); Total Bilirubin 1.5 mg/dL (0.2-1.3); Total Protein 7.2 g/dL (6.3-8.2)
[2018-02-06 10:08] LABS: INR 1.7 (<1.2); Prothrombin Time 15.2 sec (9.0-12.0)
[2018-02-06 10:09] LABS: Potassium 2.9 mmol/L (3.5-5.1)
--- NOTE | 2018-02-06 10:11 | XR ---
EXAMINATION TYPE: XR chest 2V DATE OF EXAM: 02/06/2018 COMPARISON: Chest x-ray January 21, 2018 HISTORY: Chest pain and tightness and shortness of breath TECHNIQUE: Frontal and lateral views of the chest are obtained. FINDINGS: There is chronic parenchymal change without suspicious focal air space opacity, pleural ef fusion, or pneumothorax seen. The cardiac silhouette size is within normal limits with dual lead pac emaker redemonstrated. There is stable right subclavian Mediport catheter. The osseous structures ar e intact. Cholecystectomy clips are redemonstrated. IMPRESSION: Chronic changes without acute pulmonary process. No significant change from prior.
[2018-02-06 10:14] LABS: Creatine Kinase 22 U/L (30-135)
[2018-02-06 10:16] LABS: Band Neutrophils % 1 %; Basophils # (M) 0.03 k/uL (0-0.2); Lymphocytes # (M) 0.73 k/uL (1.0-4.8); Neutrophils % (M) 43 %; Nucleated Red Blood Cells 0 /100 WBC (0-0); Poikilocytosis (M) Present; Polychromasia Present; Total Cells Counted 100
[2018-02-06 10:26] LABS: Creatine Kinase MB 0.3 ng/mL (0.0-2.4); Troponin I <0.012 ng/mL (0.000-0.034)
[2018-02-06] MEDS ORDERED: POTASSIUM CHLORIDE 20 MEQ in WATER FOR INJECTION 1 100ML.BAG IVPB STA ×2 (10:39→16:39)
[2018-02-06] MEDS ORDERED: POTASSIUM CHLORIDE 2 MEQ/ML 20 ML VIAL IV ONE (10:45)
[2018-02-06] MEDS ORDERED: NITROGLYCERIN SL TABS 0.4 MG TAB SUBLINGUAL PRN (11:22)
[2018-02-06] MEDS: POTASSIUM CHLORIDE ER 20 MEQ TAB.ER PO STA ×2 (14:14→14:16)
[2018-02-06] MEDS: SODIUM CHLORIDE 0.9% 1,000 ML IV SCH ×2 (14:17→23:36)
--- NOTE | 2018-02-06 16:12 | ECHOF ---
Referral Reason:chest pain MEASUREMENTS -------- HEIGHT: 167.6 cm WEIGHT: 53.1 kg BP: 86/61 RVIDd: 2.9 cm (< 3.3) IVSd: 0.9 cm (0.6 - 1.1) LVIDd: 3.8 cm (3.9 - 5.3) LVPWd: 1.0 cm (0.6 - 1.1) IVSs: 1.4 cm LVIDs: 2.7 cm LVPWs: 1.3 cm LA Diam: 3.2 cm (2.7 - 3.8) LAESV Index (A-L): 17.48 ml/m IVSd: 2.7 cm (0.6 - 1.1) Ao Diam: 2.5 cm (2.0 - 3.7) AV Cusp: 1.7 cm (1.5 - 2.6) MV EXCURSION: 21.866 mm (> 18.000) MV EF SLOPE: 143 mm/s (70 - 150) EPSS: 0.8 cm RAP: 5.00 mmHg RVSP: 19.00 mmHg FINDINGS -------- Atrial fibrillation. This was a technically adequate study. The left ventricular size is normal. Left ventricular wall thickness is normal. Overall left vent ricular systolic function is moderately impaired with, an EF between 35 - 40 %. The right ventricle is normal in size. Normal LA size by volume 22+/-6 ml/m2. The right atrium is normal in size. The aortic valve is trileaflet and appears structurally normal. There is trace mitral regurgitation. Mild tricuspid regurgitation present. Right ventricular systolic pressure is normal at < 35 mmHg. Trace/mild (physiologic) pulmonic regurgitation. The aortic root size is normal. Normal inferior vena cava with normal inspiratory collapse consistent with estimated right atrial pre ssure of 5 mmHg. There is no pericardial effusion. CONCLUSIONS -------- 1. Atrial fibrillation. 2. This was a technically adequate study. 3. The left ventricular size is normal. 4. Left ventricular wall thickness is normal. 5. Overall left ventricular systolic function is moderately impaired with, an EF between 35 - 40 %. 6. The right ventricle is normal in size. 7. Normal LA size by volume 22+/-6 ml/m2. 8. The right atrium is normal in size. 9. The aortic valve is trileaflet and appears structurally normal. 10. There is trace mitral regurgitation. 11. Mild tricuspid regurgitation present. 12. Right ventricular systolic pressure is normal at < 35 mmHg. 13. Trace/mild (physiologic) pulmonic regurgitation. 14. The aortic root size is normal. 15. Normal inferior vena cava with normal inspiratory collapse consistent with estimated right atrial pressure of 5 mmHg. 16. There is no pericardial effusion. PAPER BUNDLER: Bertha Schuler RDCS
[2018-02-06 16:13] LABS: Creatine Kinase 22 U/L (30-135)
[2018-02-06 16:26] LABS: Creatine Kinase MB 0.4 ng/mL (0.0-2.4); Troponin I <0.012 ng/mL (0.000-0.034)
[2018-02-06] MEDS ORDERED: ALPRAZolam 0.5 MG TAB PO PRN (17:22)
[2018-02-06] MEDS: RIVAROXABAN 20 MG TAB PO SCH (17:50)
[2018-02-06] MEDS: FAMOTIDINE 20 MG TAB PO SCH (17:50)
--- NOTE | 2018-02-06 18:34 | P.HPIM ---
History of Present Illness H&P Date: 02/06/18 (Patient seen while covering for Dr. Everardo Prajapati) Chief Complaint: 2 day history of chest pain and palpitation 62-year-old female with prior history of chronic atrial fibrillation also have issues associated with the rectal cancer has been on chemotherapy and follows Dr. Elder, patient presented emergency department with 2 day history of intermittent chest pain and discomfort along with palpitation denies any shortness of breath symptoms have been having a flareup Petrin with some waxing and waning director pain is predominately present on the right side patient also has some nausea but no vomiting or diarrhea with those problem she presented into emergency department was seen eval reexamined and admitted into the hospital, patient has significant history of dyslipidemia hypertension has been her anticoagulation, on specific questioning she denies any seizure-like activity loss of consciousness or hemiparesis, denies any vomiting or diarrhea denies any abdominal discomfort, does have mild degree or shortness of breath pain during evaluation has improved however, diarrhea denies any bowel or bladder related problems except as noted and discussed above, laboratory data reviewed significant findings include leukopenia, significant hyponatremia hypokalemia and his stage III renal failure, chest x-ray revealed COPD-like changes with chronic prominent interstitium no acute findings identified, echocardiogram revealed ejection fraction of 35% with normal PA pressure mild TR and GA is noted along with MR Review of Systems All systems: negative Past Medical History Past Medical History: Atrial Fibrillation, Cancer, CVA/TIA, GERD/Reflux, GI Bleed Additional Past Medical History / Comment(s): 12/2016 lower GI bleed, colonoscopy showed rectal mass, rectal adenocarcinoma indentified and has had oral chemo/radiation/surgery and now IV chemo, 05/30/17 CVA without residual, pacemaker placed, constipation, chronic kidney disease stage II, gait distubance d/t weakness. ON XARELTO FOR AFIB SINCE AUG 2017 History of Any Multi-Drug Resistant Organisms: None Reported Past Surgical History: Bowel Resection, Cholecystectomy, Pacemaker Additional Past Surgical History / Comment(s): Colonoscopy 03/27/17, pacemaker , low anterior resection with ostomy, 10/30/17 port placed for chemo Past Anesthesia/Blood Transfusion Reactions: No Reported Reaction Additional Past Anesthesia/Blood Transfusion Reaction / Comment(s): no hx blood transfusion Type of Cardiac Device: Permanent Pacemaker Device Placement Date:: 08/21/17 Past Psychological History: No Psychological Hx Reported Additional Psychological History / Comment(s): Pt resides alone. She drives but not for several weeks d/t health reasons. Her sister and brother take her to appointments. She manages her own medications. She has had home care in the past but not currently. Smoking Status: Former smoker Past Alcohol Use History: None Reported Additional Past Alcohol Use History / Comment(s): quit smoking 1990,smoke approx 15 yrs 2ppd Past Drug Use History: Marijuana Additional Drug Use History / Comment(s): 1 joint marijuana occasionally - Past Family History Mother Family Medical History: Deep Vein Thrombosis (DVT) Additional Family Medical History / Comment(s): skin cancer Father Family Medical History: No Reported History Additional Family Medical History / Comment(s): Father was healthy and of "old age" at the age of 88yrs. Medications and Allergies Home Medications Medication Instructions Recorded Confirmed Type Atorvastatin [Lipitor] 40 mg PO HS 08/06/17 02/06/18 History Rivaroxaban [Xarelto] 20 mg PO W/SUPPER 10/28/17 02/06/18 History ALPRAZolam [Xanax] 0.5 mg PO DAILY PRN 12/17/17 02/06/18 History Metoprolol Tartrate [Lopressor] 12.5 mg PO BID 12/17/17 02/06/18 History Ondansetron HCl [Zofran] 4 mg PO BID 12/17/17 02/06/18 History Famotidine [Pepcid] 20 mg PO DAILY 02/06/18 02/06/18 History Allergies Allergy/AdvReac Type Severity Reaction Status Date / Time No Known Allergies Allergy Verified 02/06/18 09:09 Physical Exam Vitals: Vital Signs Temp Pulse Pulse Resp BP BP Pulse Ox 02/06/18 18:11 100 02/06/18 17:11 97.2 F L 73 16 90/54 100 02/06/18 16:33 97.6 F 80 18 88/50 96 02/06/18 14:10 61 16 81/50 96 02/06/18 13:40 66 18 99/60 98 02/06/18 11:16 100 18 96/54 100 02/06/18 09:42 73 02/06/18 08:51 97.8 F 73 20 73/48 97 Intake and Output 02/06/18 02/06/18 02/06/18 06:59 14:59 22:59 Intake Total 340 Output Total 90 Balance 250 Intake: IV 100 Potassium Chloride 20 meq 100 In Water For Injection 1 100ml.bag @ 50 mls/hr IVPB ONCE STA Rx#: [id number] Oral 240 Output: Stool 90 Other: Weight 53.07 kg General appearance: alert, in no apparent distress Head exam: Present: atraumatic Eye exam: Present: normal appearance, PERRL ENT exam: Present: normal oropharynx Neck exam: Present: normal inspection Respiratory exam: Present: normal lung sounds bilaterally. Absent: chest wall tenderness Cardiovascular Exam: Present: irregular rhythm GI/Abdominal exam: Present: soft. Absent: tenderness Extremities exam: Present: normal inspection. Absent: pedal edema, calf tenderness Neurological exam: Present: alert Psychiatric exam: Present: normal affect, normal mood Skin exam: Present: normal color Results Results: EKG revealed atrial fibrillation with rapid ventricular response with heart rate 100, CBC & Chem 7: 02/06/18 09:40 02/06/18 09:40 Labs: Abnormal Lab Results - Last 24 Hours (Table) 02/06/18 02/06/18 02/06/18 Range/Units 09:40 09:40 09:40 WBC 2.6 L (3.8-10.6) k/uL RDW 17.8 H (11.5-15.5) % Neutrophils # (Manual) 1.10 L (1.3-7.7) k/uL Lymphocytes # (Manual) 0.73 L (1.0-4.8) k/uL PT (9.0-12.0) sec INR (<1.2) APTT (22.0-30.0) sec Sodium 129 L (137-145) mmol/L Potassium 2.9 L* (3.5-5.1) mmol/L Chloride 83 L (98-107) mmol/L BUN 30 H (7-17) mg/dL Creatinine 1.58 H (0.52-1.04) mg/dL Glucose 129 H (74-99) mg/dL Total Bilirubin 1.5 H (0.2-1.3) mg/dL AST 55 H (14-36) U/L ALT 70 H (9-52) U/L Alkaline Phosphatase 132 H (38-126) U/L Total Creatine Kinase 22 L (30-135) U/L 02/06/18 02/06/18 Range/Units 09:40 15:37 WBC (3.8-10.6) k/uL RDW (11.5-15.5) % Neutrophils # (Manual) (1.3-7.7) k/uL Lymphocytes # (Manual) (1.0-4.8) k/uL PT 15.2 H (9.0-12.0) sec INR 1.7 H (<1.2) APTT 79.0 H (22.0-30.0) sec Sodium (137-145) mmol/L Potassium (3.5-5.1) mmol/L Chloride (98-107) mmol/L BUN (7-17) mg/dL Creatinine (0.52-1.04) mg/dL Glucose (74-99) mg/dL Total Bilirubin (0.2-1.3) mg/dL AST (14-36) U/L ALT (9-52) U/L Alkaline Phosphatase (38-126) U/L Total Creatine Kinase 22 L (30-135) U/L Chest x-ray: report reviewed, image reviewed Thrombosis Risk Factor Assmnt - DVT/VTE Prophylaxis DVT/VTE Prophylaxis: Pharmacologic Prophylaxis ordered - Choose All That Apply Any of the Below Risk Factors Present?: Yes Other Risk Factors: Yes Each Risk Factor Represents 2 Points: Age 61-74 years, Malignancy Each Risk Factor Represents 3 Points: Family history of DVT/PE Other congenital or acquired thrombophilia - If yes, enter type in comment: No Thrombosis Risk Factor Assessment Total Risk Factor Score: 7 Thrombosis Risk Factor Assessment Level: High Risk Assessment and Plan Assessment: Episode of palpitation and chest pain related to acute on chronic systolic heart failure and atrial fibrillation with rapid ventricular response Electrolyte imbalance with severe hyponatremia and hypokalemia Stage III renal failure Leukopenia Intravascular volume depletion and dehydration Borderline hypertension Plan: Continue anticoagulation as planned with oral agent Gentle rehydration Adjustment of better 2 blockers Consult cardiology as well as hematology oncology Replace electrolytes including potassium Continue home medication Further recommendations pending plan of care as per clinical response of the patient Time with Patient: Greater than 30
[2018-02-06] MEDS: ONDANSETRON 4 MG TAB PO SCH (20:12)
[2018-02-06] MEDS: ATORVASTATIN 40 MG TAB PO SCH (20:12)
[2018-02-06 22:53] LABS: Creatine Kinase 22 U/L (30-135)
[2018-02-06 23:06] LABS: Creatine Kinase MB 0.3 ng/mL (0.0-2.4); Troponin I <0.012 ng/mL (0.000-0.034)
[2018-02-06] MEDS: METOPROLOL TARTRATE 12.5 MG TAB PO SCH (23:36)
[2018-02-07] MEDS ORDERED: Potassium Replacement Protocol 1 EACH MISC MISCELLANE PRN (02:43)
[2018-02-07] MEDS ORDERED: POTASSIUM CHLORIDE ER 20 MEQ TAB.ER PO SCH (03:00)
[2018-02-07] MEDS: SODIUM CHLORIDE 0.9% 1,000 ML IV SCH ×2 (05:32→17:23)
[2018-02-07 06:34] LABS: Albumin 2.9 g/dL (3.5-5.0); Calcium 8.4 mg/dL (8.4-10.2); Magnesium 1.7 mg/dL (1.6-2.3); Phosphorus 3.2 mg/dL (2.5-4.5); Total Protein 4.9 g/dL (6.3-8.2)
[2018-02-07 06:40] LABS: Anisocytosis Slight; HCT 30.3 % (34.0-46.0); MCH 33.4 pg (25.0-35.0); MCHC 35.4 g/dL (31.0-37.0); MCV 94.3 fL (80.0-100.0); Macrocytosis Slight; Mean Platelet Volume 7.4; Platelet Count 134 k/uL (150-450); RBC 3.22 m/uL (3.80-5.40); RDW 19.6 % (11.5-15.5)
[2018-02-07 06:58] LABS: WBC 1.7 k/uL (3.8-10.6)
[2018-02-07 06:59] LABS: HGB 10.7 gm/dL (11.4-16.0)
[2018-02-07] MEDS: POTASSIUM CHLORIDE ER 20 MEQ TAB.ER PO SCH ×4 (07:50→15:20)
[2018-02-07 08:01] LABS: Eosinophils # (M) 0.03 k/uL (0-0.7); Lymphocytes # (M) 0.53 k/uL (1.0-4.8); Monocytes # (M) 0.34 k/uL (0-1.0); Neutrophils % (M) 47 %; Nucleated Red Blood Cells 0 /100 WBC (0-0); Total Cells Counted 100
--- NOTE | 2018-02-07 09:00 | P.CRDCN ---
History of Present Illness Consult date: 02/07/18 Requesting physician: Everardo Prajapati Consult reason: chest pain Chief complaint: Chest pain History of present illness: This is a pleasant 62-year-old female who follows regularly with Dr. Kennedy in the office. She has known history of hyperlipidemia, chronic persistent atrial fibrillation, on Xarelto for anticoagulation. Prior pacemaker implantation for significant pauses, patient also has colorectal cancer for which she underwent surgery, she currently has a colostomy. Patient also underwent radiation treatment and is currently undergoing chemotherapy. She presents to the hospital on this occasion with symptoms of chest tightness with associated palpitations. She states that when she stands up she feels extremely weak and lightheaded. According to the patient, she changes her colostomy bag at least 6-8 times per day. EKG on arrival here showed atrial fibrillation with a ventricular paced rhythm. Subsequent EKG showed atrial fibrillation with a controlled ventricular response. Chest x-ray showed chronic changes without acute pulmonary process. Echocardiogram with Doppler study was performed which revealed an ejection fraction of 35-40%. Patient's most recent echo performed in July revealed a normal left ventricular systolic function. The pressure on arrival here 73/48 with a heart rate in the 70s, 97% on room air. Blood pressure this morning 105/56 with a heart rate in the 90s, 100% on 2 L of oxygen. Blood cell count 2.6 on admission, 1.7 this morning. Hemoglobin 13.9 on admission, 10.7 this morning. Platelet count is 134. Sodium on admission 129, 133 this morning. Potassium on admission 2.9, 3.0 this morning. BUN on admission 30 and creatinine 1.5, this morning 19 and 0.9. Magnesium level I.7, total bilirubin 1.5 AST 55 ALT 70 alk phos 132 liver enzymes this morning have normalized. Troponins are negative 3. At the time of my examination this morning, patient complains of feeling extremely weak. She denies any chest discomfort, no palpitations. Breathing is overall stable. 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 ON XARELTO FOR AFIB SINCE AUG 2017 History of Any Multi-Drug Resistant Organisms: None Reported Past Surgical History: Bowel Resection, Cholecystectomy, Pacemaker Additional Past Surgical History / Comment(s): Colonoscopy 03/27/17, pacemaker , low anterior resection with ostomy, 10/30/17 port placed for chemo Past Anesthesia/Blood Transfusion Reactions: No Reported Reaction Additional Past Anesthesia/Blood Transfusion Reaction / Comment(s): no hx blood transfusion Type of Cardiac Device: Permanent Pacemaker Device Placement Date:: 08/21/17 Past Psychological History: No Psychological Hx Reported Additional Psychological History / Comment(s): Pt resides alone. She drives but not for several weeks d/t health reasons. Her sister and brother take her to appointments. She manages her own medications. She has had home care in the past but not currently. Smoking Status: Former smoker Past Alcohol Use History: None Reported Additional Past Alcohol Use History / Comment(s): quit smoking 1990,smoke approx 15 yrs 2ppd Past Drug Use History: Marijuana Additional Drug Use History / Comment(s): 1 joint marijuana occasionally - Past Family History Mother Family Medical History: Deep Vein Thrombosis (DVT) Additional Family Medical History / Comment(s): skin cancer Father Family Medical History: No Reported History Additional Family Medical History / Comment(s): Father was healthy and of "old age" at the age of 88yrs. Medications and Allergies Home Medications Medication Instructions Recorded Confirmed Type Atorvastatin [Lipitor] 40 mg PO HS 08/06/17 02/06/18 History Rivaroxaban [Xarelto] 20 mg PO W/SUPPER 10/28/17 02/06/18 History ALPRAZolam [Xanax] 0.5 mg PO DAILY PRN 12/17/17 02/06/18 History Metoprolol Tartrate [Lopressor] 12.5 mg PO BID 12/17/17 02/06/18 History Ondansetron HCl [Zofran] 4 mg PO BID 12/17/17 02/06/18 History Famotidine [Pepcid] 20 mg PO DAILY 02/06/18 02/06/18 History Allergies Allergy/AdvReac Type Severity Reaction Status Date / Time No Known Allergies Allergy Verified 02/06/18 09:09 Physical Exam Vitals: Vital Signs Temp Pulse Pulse Resp BP BP Pulse Ox 02/07/18 07:56 97.1 F L 99 16 105/56 100 02/07/18 04:00 96.6 F L 91 16 88/62 99 02/06/18 23:28 96.6 F L 86 16 88/56 99 02/06/18 19:50 97.0 F L 71 16 83/51 98 02/06/18 18:11 100 02/06/18 17:11 97.2 F L 73 16 90/54 100 02/06/18 16:33 97.6 F 80 18 88/50 96 02/06/18 14:10 61 16 81/50 96 02/06/18 13:40 66 18 99/60 98 02/06/18 11:16 100 18 96/54 100 02/06/18 09:42 73 02/06/18 08:51 97.8 F 73 20 73/48 97 Intake and Output 02/06/18 02/07/18 02/07/18 22:59 06:59 14:59 Intake Total 340 600 200 Output Total 340 300 Balance 0 300 200 Intake: IV 100 Potassium Chloride 20 meq 100 In Water For Injection 1 100ml.bag @ 50 mls/hr IVPB ONCE STA Rx#: [id number] Intake, IV Titration 600 Amount Sodium Chloride 0.9% 1, 600 000 ml @ 100 mls/hr IV . Q10H [facility] Rx#:[id number] Oral 240 200 Output: Urine 300 Stool 340 Other: Voiding Method Toilet Toilet # Voids 1 # Bowel Movements 1 Weight 54 kg PHYSICAL EXAMINATION: GENERAL: female 62 years of age in no apparent distress time of my examination. HEENT: Head is atraumatic, normocephalic. Pupils equal, round. Sclera anicteric. Conjunctiva are clear. Mucous membranes of the mouth are moist. Neck is supple. There is no elevated jugular venous pressure.] bruit is heard. HEART EXAMINATION: Heart S1 and S2 irregularly irregular CHEST EXAMINATION: Lungs are clear to auscultation and precussion. No chest wall tenderness is noted on palpation or with deep breathing. ABDOMEN: Soft, nontender. Bowel sounds are heard. No organomegaly noted. Colostomy bag in place EXTREMITIES: 2+ peripheral pulses with no evidence of peripheral edema and no calf tenderness noted. NEUROLOGIC patient is awake, alert and oriented -3. . Results 02/07/18 05:32 02/07/18 05:32 Cardiac Enzymes 02/06/18 02/06/18 02/06/18 Range/Units 09:40 09:40 15:37 AST 55 H (14-36) U/L CK-MB (CK-2) 0.3 0.4 (0.0-2.4) ng/mL Troponin I <0.012 <0.012 (0.000-0.034) ng/mL 02/06/18 02/07/18 Range/Units 21:52 05:32 AST 35 (14-36) U/L CK-MB (CK-2) 0.3 (0.0-2.4) ng/mL Troponin I <0.012 (0.000-0.034) ng/mL Coagulation 02/06/18 Range/Units 09:40 PT 15.2 H (9.0-12.0) sec APTT 79.0 H (22.0-30.0) sec Lipids 02/07/18 Range/Units 05:32 Triglycerides 125 (<150) mg/dL Cholesterol 92 (<200) mg/dL HDL Cholesterol 45 (40-60) mg/dL CBC 02/06/18 02/07/18 Range/Units 09:40 05:32 WBC 2.6 L 1.7 L* (3.8-10.6) k/uL RBC 4.23 3.22 L (3.80-5.40) m/uL Hgb 13.9 10.7 L D (11.4-16.0) gm/dL Hct 38.7 30.3 L (34.0-46.0) % Plt Count 182 134 L (150-450) k/uL Comprehensive Metabolic Panel 02/06/18 02/07/18 02/07/18 Range/Units 09:40 00:16 05:32 Sodium 129 L 133 L (137-145) mmol/L Potassium 2.9 L* 3.0 L* 3.0 L* (3.5-5.1) mmol/L Chloride 83 L 97 L (98-107) mmol/L Carbon Dioxide 29 26 (22-30) mmol/L BUN 30 H 19 H (7-17) mg/dL Creatinine 1.58 H 0.91 (0.52-1.04) mg/dL Glucose 129 H 117 H (74-99) mg/dL Calcium 9.4 8.4 (8.4-10.2) mg/dL AST 55 H 35 (14-36) U/L ALT 70 H 52 (9-52) U/L Alkaline Phosphatase 132 H 91 (38-126) U/L Total Protein 7.2 4.9 L (6.3-8.2) g/dL Albumin 4.5 2.9 L (3.5-5.0) g/dL Current Medications Generic Name Dose Route Start Last Admin Trade Name Freq PRN Reason Stop Dose Admin Alprazolam 0.5 mg 02/06/18 17:22 Xanax PO DAILY PRN Anxiety Aspirin 325 mg 02/07/18 09:00 Aspirin PO DAILY [facility] Atorvastatin Calcium 40 mg 02/06/18 21:00 02/06/18 20:12 Lipitor PO 40 mg HS [facility]AD[facility]IR Administration Famotidine 20 mg 02/06/18 17:30 02/06/18 17:50 Pepcid PO 20 mg DAILY BLAD[facility] Administration Sodium Chloride 1,000 mls @ 100 mls/hr 02/06/18 11:30 02/07/18 05:32 Saline 0.9% IV 100 mls/hr .Q10H [facility]AD[facility] Administration Metoprolol Tartrate 12.5 mg 02/06/18 21:00 02/06/18 23:36 Lopressor PO Not Given BID [facility] Miscellaneous Information 1 each 02/07/18 02:43 Potassium Per Protocol MISCELLANE DAILY PRN Per Protocol Protocol Nitroglycerin 0.4 mg 02/06/18 11:22 Nitrostat SUBLINGUAL Q5M PRN Chest Pain Ondansetron HCl 4 mg 02/06/18 21:00 02/06/18 20:12 Zofran PO 4 mg BID BLAD[facility] Administration Potassium Chloride 20 meq 02/07/18 08:00 02/07/18 07:50 K-Dur 20 PO 02/07/18 09:01 20 meq Q1HR [facility]AD[facility] Administration Rivaroxaban 20 mg 02/06/18 17:30 02/06/18 17:50 Xarelto PO 20 mg W/SUPPER [facility]AD[facility] Administration Intake and Output 02/06/18 02/07/18 02/07/18 22:59 06:59 14:59 Intake Total 340 600 200 Output Total 340 300 Balance 0 300 200 Intake: IV 100 Potassium Chloride 20 meq 100 In Water For Injection 1 100ml.bag @ 50 mls/hr IVPB ONCE STA Rx#: [id number] Intake, IV Titration 600 Amount Sodium Chloride 0.9% 1, 600 000 ml @ 100 mls/hr IV . Q10H [facility] Rx#:[id number] Oral 240 200 Output: Urine 300 Stool 340 Other: Voiding Method Toilet Toilet # Voids 1 # Bowel Movements 1 Weight 54 kg 02/07/18 05:32 02/07/18 05:32 EKG Interpretations (text) EKG shows paced rhythm with underlying atrial fibrillation Assessment and Plan Plan: Assessment and plan #1 chest discomfort, associated palpitations, atypical for acute coronary syndrome. Troponins negative 3. EKG shows paced rhythm with underlying A. fib #2 chronic persistent atrial fibrillation on Xarelto for anticoagulation #3 hyperlipidemia #4 colorectal cancer with prior surgery, currently undergoing chemotherapy #5 Hypokalemia and hypomagnesemia Plan Echocardiogram with Doppler study showed an ejection fraction of 35-40%, most recent echo performed in July 2017 showed a normal ejection fraction at that time. We will decrease aspirin to 81 mg daily, continue Lipitor, continue beta ray. If blood pressure allows, add Cozaar and Aldactone patient's medication regime. Further recommendations to follow. DNP note has been reviewed, I agree with a documented findings and plan of care. Patient was seen and examined.
[2018-02-07] MEDS: METOPROLOL TARTRATE 12.5 MG TAB PO SCH ×2 (09:23→21:01)
[2018-02-07] MEDS: ASPIRIN 325 MG TAB PO SCH ×2 (09:23→09:37)
[2018-02-07] MEDS: FAMOTIDINE 20 MG TAB PO SCH (09:24)
[2018-02-07] MEDS: ONDANSETRON 4 MG TAB PO SCH ×2 (09:27→20:58)
[2018-02-07] MEDS: MAGNESIUM SULFATE-D5W PMX 1 GM in DEXTROSE/WATER 1 100ML.BAG IVPB SCH ×2 (10:37→12:03)
--- NOTE | 2018-02-07 12:25 | P.CONS ---
History of Present Illness - Reason for Consult Consult date: 02/07/18 Oncology Care Requesting physician: Rupert Gregg - Chief Complaint Chest tightness and Palpitations - History of Present Illness Ms Adan is a pleasant white female, in overall good health. She follows regularly with Dr. Kennedy (Cardiology). She has known history of hyperlipidemia , chronic persistent atrial fibrillation, on Xarelto for anticoagulation. Prior pacemaker implantation. She presented to Dr. Rod in 2016, because of complaints of blood in her stools, as well as difficulty and some pain in passing bowel movements and started about 6 months ago and had slowly progressed since. Since 01/09 the patient had lost about 10 pounds in weight. She had a colonoscopy on 03/27/17, showing a circumferential ulcerated rectal mass at 10 cm from the anal verge. There was no evidence of obstruction. Biopsy was positive for adenocarcinoma. No other significant abnormal findings were noted throughout the rest of the colon and rectum. CT of the abdomen and pelvis on 03/29/17 showed rectal wall thickening, fat stranding of the mesorectal fat and a few prominent lymph nodes in the presacral space and mesorectal fat, measuring up to 6 mm. The patient subsequently had a PET scan on 04/13/17 which showed no evidence of metastatic disease, including no obvious uptake in the pelvic nodes. The patient was then referred here for further evaluation and recommendations. She had an EUS on 05/03/17 which revealed T3 N2 disease, with possibility of involvement of 2 left iliac nodes. She was started on chemoRT with Xeloda in late 05/12. She had an interruption due to a CVA in early 05/2017. She recovered well from the same, and resumed chemoRT on 06/11/17. She completed treatment on 07/10/17. She proceeded to surgery ( LAR with TME, and ostomy) at [facility] with Dr Alvarado on 09/12/17. Shehad a 6 cm residual tumor, with 0/31 nodes involved. She manages her Ostomy well. She tolerated surgery well overall. she was then started on FOLFOX adjuvant, and is status post 5 cycles. Dose was reduced by 10% after C3 due to side effects. She was complaining progressive persistent numbness and tingling in her hands, feet and tongue. This has improved with Neurontin, and the dose reduction. She has gained back her weight post surgery. No signficant bleeding noted. 01/21/18 - Completed 6 cycles of FOLFOX. She now presents to [facility] Emergency Department with complaints of chest tightness and palpitations. She has been having associated weakness and feeling lightheaded, worse with movement and standing. She still has loose output in ostomy bag, controlled with antidiarrheals. EKG done on arrival showed atrial fibrillation with paced rhytm. Follow-up EKG showed atrial fibrillation with a controlled ventricular response. Chest x-ray showed chronic changes without acute pulmonary process. Echocardiogram with Doppler study was performed which revealed an ejection fraction of 35-40%. Patient's most recent echo performed in July revealed a normal left ventricular systolic function. She was also hypotensive on arrival. WBC is 1.7 this morning. Hemoglobin 10.7, Platelet count is 134. She was hyponatremic with a sodium level of 129 on admission and hypokalemic with potassium 2.9. 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 ON XARELTO FOR AFIB SINCE AUG 2017 History of Any Multi-Drug Resistant Organisms: None Reported Past Surgical History: Bowel Resection, Cholecystectomy, Pacemaker Additional Past Surgical History / Comment(s): Colonoscopy 03/27/17, pacemaker , low anterior resection with ostomy, 10/30/17 port placed for chemo Past Anesthesia/Blood Transfusion Reactions: No Reported Reaction Additional Past Anesthesia/Blood Transfusion Reaction / Comm: no hx blood transfusion Type of Cardiac Device: Permanent Pacemaker Device Placement Date:: 08/21/17 Past Psychological History: No Psychological Hx Reported Additional Psychological History / Comment(s): Pt resides alone. She drives but not for several weeks d/t health reasons. Her sister and brother take her to appointments. She manages her own medications. She has had home care in the past but not currently. Smoking Status: Former smoker Past Alcohol Use History: None Reported Additional Past Alcohol Use History / Comment(s): quit smoking 1990,smoke approx 15 yrs 2ppd Past Drug Use History: Marijuana Additional Drug Use History / Comment(s): 1 joint marijuana occasionally - Past Family History Mother Family Medical History: Deep Vein Thrombosis (DVT) Additional Family Medical History / Comment(s): skin cancer Father Family Medical History: No Reported History Additional Family Medical History / Comment(s): Father was healthy and of "old age" at the age of 88yrs. Medications and Allergies Home Medications Medication Instructions Recorded Confirmed Type Atorvastatin [Lipitor] 40 mg PO HS 08/06/17 02/06/18 History Rivaroxaban [Xarelto] 20 mg PO W/SUPPER 10/28/17 02/06/18 History ALPRAZolam [Xanax] 0.5 mg PO DAILY PRN 12/17/17 02/06/18 History Metoprolol Tartrate [Lopressor] 12.5 mg PO BID 12/17/17 02/06/18 History Ondansetron HCl [Zofran] 4 mg PO BID 12/17/17 02/06/18 History Famotidine [Pepcid] 20 mg PO DAILY 02/06/18 02/06/18 History Allergies Allergy/AdvReac Type Severity Reaction Status Date / Time No Known Allergies Allergy Verified 02/06/18 09:09 Physical Exam Vitals: Vital Signs Temp Pulse Pulse Resp BP BP Pulse Ox 02/07/18 08:06 93 96 02/07/18 07:56 97.1 F L 99 16 105/56 100 02/07/18 04:00 96.6 F L 91 16 88/62 99 02/06/18 23:28 96.6 F L 86 16 88/56 99 02/06/18 19:50 97.0 F L 71 16 83/51 98 02/06/18 18:11 100 02/06/18 17:11 97.2 F L 73 16 90/54 100 02/06/18 16:33 97.6 F 80 18 88/50 96 02/06/18 14:10 61 16 81/50 96 02/06/18 13:40 66 18 99/60 98 02/06/18 11:16 100 18 96/54 100 Intake and Output 02/06/18 02/07/1802/07/18 22:59 06:59 14:59 Intake Total 340 600 200 Output Total 340 300 500 Balance 0 300 -300 Intake: IV 100 Potassium Chloride 20 meq 100 In Water For Injection 1 100ml.bag @ 50 mls/hr IVPB ONCE STA Rx#: [id number] Intake, IV Titration 600 Amount Sodium Chloride 0.9% 1, 600 000 ml @ 100 mls/hr IV . Q10H [facility] Rx#:[id number] Oral 240 200 Output: Urine 300 Stool 340 500 Other: Voiding Method Toilet Toilet # Voids 1 # Bowel Movements 1 Weight 54 kg - Constitutional General appearance: cooperative, no acute distress, thin - EENT Eyes: EOMI, PERRLA, dentition normal ENT: hard of hearing, NA/AT, normal oropharynx - Neck Supple, Trachea Midline Neck: normal ROM - Respiratory Respiratory: bilateral: diminished (Decreased Bibasilar, no increased effort) - Cardiovascular Rhythm: irregularly irregular - Gastrointestinal Liquid stool from ostomy General gastrointestinal: soft, tenderness - Neurologic No focal defects - Musculoskeletal Musculoskeletal: gait normal, generalized weakness, strength equal bilaterally - Psychiatric Psychiatric: A&O x's 3, appropriate affect, intact judgment & insight Results CBC & Chem 7: 02/07/18 05:32 02/07/18 12:55 Labs: Abnormal Lab Results - Last 24 Hours (Table) 02/06/18 02/06/18 02/07/18 Range/Units 15:37 21:52 00:16 WBC (3.8-10.6) k/uL RBC (3.80-5.40) m/uL Hgb (11.4-16.0) gm/dL Hct (34.0-46.0) % RDW (11.5-15.5) % Plt Count (150-450) k/uL Neutrophils # (Manual) (1.3-7.7) k/uL Lymphocytes # (Manual) (1.0-4.8) k/uL Sodium (137-145) mmol/L Potassium 3.0 L* (3.5-5.1) mmol/L Chloride (98-107) mmol/L BUN (7-17) mg/dL Glucose (74-99) mg/dL Total Creatine Kinase 22 L 22 L (30-135) U/L Total Protein (6.3-8.2) g/dL Albumin (3.5-5.0) g/dL 02/07/18 02/07/18 Range/Units 05:32 05:32 WBC 1.7 L* (3.8-10.6) k/uL RBC 3.22 L (3.80-5.40) m/uL Hgb 10.7 L D (11.4-16.0) gm/dL Hct 30.3 L (34.0-46.0) % RDW 19.6 H (11.5-15.5) % Plt Count 134 L (150-450) k/uL Neutrophils # (Manual) 0.80 L (1.3-7.7) k/uL Lymphocytes # (Manual) 0.53 L (1.0-4.8) k/uL Sodium 133 L (137-145) mmol/L Potassium 3.0 L* (3.5-5.1) mmol/L Chloride 97 L (98-107) mmol/L BUN 19 H (7-17) mg/dL Glucose 117 H (74-99) mg/dL Total Creatine Kinase (30-135) U/L Total Protein 4.9 L (6.3-8.2) g/dL Albumin 2.9 L (3.5-5.0) g/dL Assessment and Plan Plan: Assessment and Recommendations: 1. Adenocarcinoma of the Rectum Stage IIIB (T3, N2a, M0) Dx: in April of 2017 - Status Post Concurrent Radiation and Chemotherapy - Nj-adjuvant Therapy - Status Post Lower Anterior Resection with Ileostomy on September 05, 2017 - Currently Receiving Adjuvant Chemotherapy with FOLFOX-6 Regimen - Status Post Cycle 6 of 10 on 01/23/18. - Due for cycle 7 on February 10 2. Pancytopenia - Secondary to Chemotherapy - WBC - 1.7, Neutrophils - 0.8 - Monitor for infection, neutropenia precautions - I have added booster shots while hospitalized with [place] Stimulating Factor - Zarxio - Monitor Hemoglobin, if less than 7 transfusion support recommended - Monitor Platelets - if less than 50 hold anticoagulation. If less than 10 transfusion SDP recommended - Daily CBC with Diff 3. Atrial Fibrillation - On Xarelto Anti-coagulation Therapy - Per Cardiology, patient has Pacer 4. Acute on Chronic Systolic Heart Failure - Patient presented with Chest Tightness and Symptomatic Atrial Fib - Per Cardiology 5. Acute Renal Insuffiency on Chronic Renal Failure (Stage III) - Intravascular Volume Depletion and Dehydration - Worsened with persisent liquid output in ileostomy - Gentle Hydration - Cardiology and Medical Management 6. Persistent Large amounts of Loose Stool in Ostomy - Worsened with 5FU based Chemotherapy - Has been managed with anti-diarrheals as out patient and a dose reduction on chemotherapy was initiated last cycle - Check Stool studies to confirm no other underlying etiology as this appears worse recently then normal 7. Hyponatremia/Hypokalemia - Secondary to dehydration, diarrhea. - Replace Electrolytes. Monitor Magnesium - Repeat Potassium and Sodium, received 40Kdur, likely will need larger amount or addition to IVF with continued diarrhea and deficit. 8. Hypotensive - with known hypertension - Possible symptomatic Orthostatic hypotension with feeling of dizziness and lightheadedness with standing/moving - Monitor Orthostatics, continue Gentle Hydration - Medical Management and Cardiology regarding Cardiac Medications 9. 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
--- NOTE | 2018-02-07 12:35 | P.PN ---
Subjective Progress Note Date: 02/07/18 HPI: 62-year-old female with prior history of chronic atrial fibrillation also have issues associated with the rectal cancer has been on chemotherapy and follows Dr. Elder, patient presented emergency department with 2 day history of intermittent chest pain and discomfort along with palpitation denies any shortness of breath symptoms have been having a flareup Petrin with some waxing and waning director pain is predominately present on the right side patient also has some nausea but no vomiting or diarrhea with those problem she presented into emergency department was seen eval reexamined and admitted into the hospital, patient has significant history of dyslipidemia hypertension has been her anticoagulation, on specific questioning she denies any seizure-like activity loss of consciousness or hemiparesis, denies any vomiting or diarrhea denies any abdominal discomfort, does have mild degree or shortness of breath pain during evaluation has improved however, diarrhea denies any bowel or bladder related problems except as noted and discussed above, laboratory data reviewed significant findings include leukopenia, significant hyponatremia hypokalemia and his stage III renal failure, chest x-ray revealed COPD-like changes with chronic prominent interstitium no acute findings identified, echocardiogram revealed ejection fraction of 35% with normal PA pressure mild TR and SC is noted along with MR Interval History: 02/07/18- patient is being seen examined and evaluated today on rounds while covering for Dr. Prajapati. She is resting up in bed on room air. States she's had a very poor appetite and relates that to her chemotherapy. Her WBC count today is 1.7. She is being seen by oncology. Also being followed by cardiology. She continues to have atrial fibrillation. States her breathing is stable today. She is afebrile no further complaints. Objective - Vital Signs Vital signs: Vital Signs Temp 97.9 F 02/07/18 11:33 Pulse 79 02/07/18 12:07 Resp 16 02/07/18 11:33 BP 68/52 02/07/18 12:07 Pulse Ox 99 02/07/18 11:33 Intake & Output 02/06/18 02/07/18 02/07/18 18:59 06:59 18:59 Intake Total 340 600 200 Output Total 90 550 500 Balance 250 50 -300 Weight 53.07 kg 54 kg Intake: IV 100 Potassium Chloride 20 meq 100 In Water For Injection 1 100ml.bag @ 50 mls/hr IVPB ONCE STA Rx#: [id number] Intake, IV Titration 600 Amount Sodium Chloride 0.9% 1, 600 000 ml @ 100 mls/hr IV . Q10H [facility] Rx#:[id number] Oral 240 200 Output: Urine 300 Stool 90 250 500 Other: Voiding Method Toilet # Voids 1 # Bowel Movements 1 - Exam GENERAL EXAM: Alert, thin/frail, comfortable in no apparent distress. HEAD: Normocephalic. EYES: Normal reaction of pupils, equal size. NOSE: Clear with pink turbinates. THROAT: No erythema or exudates. NECK: No masses, no JVD. CHEST: No chest wall deformity. LUNGS: Equal air entry with no crackles, wheeze, rhonchi or dullness. CVS: S1 and S2 normal with no audible mumurs, irregular rhythm. ABDOMEN: No hepatosplenomegaly, normal bowel sounds, no guarding or rigidity. EXTREMITIES: No edema noted, pedal pulses palpable. CENTRAL NERVOUS SYSTEM: No focal deficits, tone is normal in all 4 extremities. - Labs CBC & Chem 7: 02/07/18 05:32 02/07/18 05:32 Labs: Abnormal Lab Results - Last 24 Hours (Table) 02/06/18 02/06/18 02/07/18 Range/Units 15:37 21:52 00:16 WBC (3.8-10.6) k/uL RBC (3.80-5.40) m/uL Hgb (11.4-16.0) gm/dL Hct (34.0-46.0) % RDW (11.5-15.5) % Plt Count (150-450) k/uL Neutrophils # (Manual) (1.3-7.7) k/uL Lymphocytes # (Manual) (1.0-4.8) k/uL Sodium (137-145) mmol/L Potassium 3.0 L* (3.5-5.1) mmol/L Chloride (98-107) mmol/L BUN (7-17) mg/dL Glucose (74-99) mg/dL Total Creatine Kinase 22 L 22 L (30-135) U/L Total Protein (6.3-8.2) g/dL Albumin (3.5-5.0) g/dL 02/07/18 02/07/18 Range/Units 05:32 05:32 WBC 1.7 L* (3.8-10.6) k/uL RBC 3.22 L (3.80-5.40) m/uL Hgb 10.7 L D (11.4-16.0) gm/dL Hct 30.3 L (34.0-46.0) % RDW 19.6 H (11.5-15.5) % Plt Count 134 L (150-450) k/uL Neutrophils # (Manual) 0.80 L (1.3-7.7) k/uL Lymphocytes # (Manual) 0.53 L (1.0-4.8) k/uL Sodium 133 L (137-145) mmol/L Potassium 3.0 L* (3.5-5.1) mmol/L Chloride 97 L (98-107) mmol/L BUN 19 H (7-17) mg/dL Glucose 117 H (74-99) mg/dL Total Creatine Kinase (30-135) U/L Total Protein 4.9 L (6.3-8.2) g/dL Albumin 2.9 L (3.5-5.0) g/dL Assessment and Plan Assessment: Assessment: acute on chronic systolic heart failure atrial fibrillation with rapid ventricular response Episode of palpitation and chest pain Electrolyte imbalance with severe hyponatremia and hypokalemia Stage III renal failure Leukopenia Intravascular volume depletion and dehydration Borderline hypertension Rectal cancer Plan: Medications have been reviewed and will be continued as ordered. Continue with pulmonary hygiene, coughing and deep breathing exercises, and supportive care. Supplemental oxygen to maintain oxygen saturations of 92% or better. Continue nebulizer treatments. GI and DVT prophylaxis. Continue anticoagulation as planned with oral agent Gentle rehydration Consult cardiology as well as hematology oncology Replace electrolytes including potassium, continue to monitor We will continue to monitor labs/results and adjust treatment as necessary. Further recommendations pending We are covering for Dr. Prajapati I performed an examination of the patient and discussed their management with the nurse practitioner. I have reviewed the nurse practitioner's note and agree with the documented findings and plan of care.
[2018-02-07] MEDS: FILGRASTIM-SNDZ 480 MCG/0.8 ML SYRINGE SQ SCH (13:03)
[2018-02-07 13:47] LABS: Potassium 3.5 mmol/L (3.5-5.1)
[2018-02-07] MEDS: DRONABINOL 2.5 MG CAP PO SCH (17:25)
[2018-02-07] MEDS: RIVAROXABAN 20 MG TAB PO SCH (17:26)
[2018-02-07] MEDS: ATORVASTATIN 40 MG TAB PO SCH (20:58)
[2018-02-08] MEDS: SODIUM CHLORIDE 0.9% 1,000 ML IV SCH ×3 (03:03→23:17)
[2018-02-08] MEDS: DRONABINOL 2.5 MG CAP PO SCH ×2 (06:37→17:02)
[2018-02-08] MEDS: METOPROLOL TARTRATE 12.5 MG TAB PO SCH ×2 (08:06→20:29)
[2018-02-08] MEDS: FAMOTIDINE 20 MG TAB PO SCH (08:06)
[2018-02-08] MEDS: ONDANSETRON 4 MG TAB PO SCH ×2 (08:07→20:32)
[2018-02-08] MEDS: FILGRASTIM-SNDZ 480 MCG/0.8 ML SYRINGE SQ SCH (09:15)
--- NOTE | 2018-02-08 11:38 | PN ---
PROGRESS NOTE Angely is being treated for the oncologic problems that she presented with GI symptoms and dehydration. 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 However, blood pressure is fairly low and therefore only low-dose beta blockers could be initiated. She is not on angiotensin receptor blockers or Aldactone at this time even though her potassium is on the low side. Today, she is lying comfortably in bed. Her blood pressure is in the 80s and 90s systolic. She is asymptomatic. Heart sounds S1, S2 normal. No murmurs or gallops. No rub. Heart sounds and breath sounds are clear. IMPRESSION: 1. Cardiomyopathy. 2. Atrial fibrillation with intermittent ventricular pacing. SUGGEST: 1. Continue low-dose beta blockers for now. 2. Once the blood pressure improves, we can start Aldactone and stop oral potassium. 3. Low-dose angiotensin receptor blockers. 4. Medical management of cardiomyopathy is recommended at this time. 5. Please check TSH. MMJONY / IJN: [id number] /
--- NOTE | 2018-02-08 12:59 | PN ---
PROGRESS NOTE DATE OF SERVICE: 02/08/2018. She has been hemodynamically stable. She is less short of breath. Her appetite is improving. On physical examination, her vitals are stable. She is afebrile. Her chest is clear. Cardiovascular system reveals a S1, S2. Abdomen is soft. There is no pedal edema. Labs were reviewed. IMPRESSION: At this time: 1. Acute on chronic congestive heart failure. 2. Dehydration. 3. Rectal cancer. 4. Electrolyte imbalance with hyponatremia and hypokalemia. Will check her labs. Increase her activity level. Her prognosis at this time is fair. MMODL / IJN: [id number] /
[2018-02-08] MEDS: RIVAROXABAN 20 MG TAB PO SCH (17:02)
[2018-02-08] MEDS: ATORVASTATIN 40 MG TAB PO SCH (20:30)
[2018-02-09] MEDS: DRONABINOL 2.5 MG CAP PO SCH ×2 (06:16→17:23)
[2018-02-09] MEDS: FAMOTIDINE 20 MG TAB PO SCH (08:18)
[2018-02-09] MEDS: METOPROLOL TARTRATE 12.5 MG TAB PO SCH ×2 (08:18→20:40)
[2018-02-09] MEDS: ONDANSETRON 4 MG TAB PO SCH ×2 (08:19→20:40)
[2018-02-09] MEDS: SODIUM CHLORIDE 0.9% 1,000 ML IV SCH ×2 (08:23→18:46)
--- NOTE | 2018-02-09 08:53 | P.PN ---
Subjective Progress Note Date: 02/08/18 The pt overall feels stronger, with decreased diarrhea. Her mouth is also starting to feel better. She reports some improvement in appetite. Objective - Vital Signs Vital signs: Vital Signs Temp 98 F 02/09/18 08:00 Pulse 88 02/09/18 08:00 Resp 20 02/09/18 08:00 BP 92/55 02/09/18 08:00 Pulse Ox 99 02/09/18 08:00 Intake & Output 02/08/18 02/09/18 02/09/18 18:59 06:59 18:59 Intake Total 438 1200 Output Total 800 Balance 438 400 Weight 55.4 kg Intake: Intake, IV Titration 1200 Amount Sodium Chloride 0.9% 1, 1200 000 ml @ 100 mls/hr IV . Q10H [facility] Rx#:[id number] Oral 438 Output: Urine 400 Stool 400 Other: Voiding Method Toilet # Voids 2 # Bowel Movements 1 - Constitutional General appearance: Present: no acute distress - EENT Eyes: Present: EOMI, PERRLA ENT: Present: hearing grossly normal, normal oropharynx - Respiratory Respiratory: bilateral: CTA - Cardiovascular Rhythm: regular Heart sounds: normal: S1, S2 - Gastrointestinal General gastrointestinal: Present: normal bowel sounds, soft Localized gastrointestinal: tender: RLQ (Mild), LLQ (Mild) - Integumentary Integumentary: Present: normal - Neurologic Neurologic: Present: CNII-XII intact - Musculoskeletal Musculoskeletal: Present: generalized weakness, strength equal bilaterally - Psychiatric Psychiatric: Present: A&O x's 3, intact judgment & insight - Labs CBC & Chem 7: 02/07/18 05:32 02/08/18 06:06 Assessment and Plan (1) Dehydration Narrative/Plan: This is due to diarrhea from her chemotherapy, specifically 5-FU. The patient feels significantly stronger with IV hydration. Continue same. Diarrhea is improving with antidiarrheals. Current Visit: Yes Status: Acute Priority: High Code(s): E86.0 - DEHYDRATION SNOMED Code(s): 33603151 (2) Rectal adenocarcinoma Narrative/Plan: The patient is currently on adjuvant chemotherapy, after chemoradiation and surgery. She is having significant issues with tolerance despite dose reductions. Her symptoms are related to the 5-FU. Continue current supportive care doesn't patient is improved. At this time the plan would be to hold chemotherapy. 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 Post discharge the patient will come to the office to have gene testing ( Thera-5FU), to check for an appropriate dose level for her. If one can be confirmed, then chemotherapy will be restarted. Current Visit: No Status: Acute Priority: High Code(s): C20 - MALIGNANT NEOPLASM OF RECTUM SNOMED Code(s): 684650855 (3) Pancytopenia due to antineoplastic chemotherapy Narrative/Plan: Hemoglobin and platelets are in a safe range. The patient is currently on G- CSF for her low white count. Continue same till WBC recovers. Continue to monitor her counts. Current Visit: Yes Status: Acute Code(s): D61.810 - ANTINEOPLASTIC CHEMOTHERAPY INDUCED PANCYTOPENIA; T45.1X5A - ADVERSE EFFECT OF ANTINEOPLASTIC AND IMMUNOSUP DRUGS, INIT SNOMED Code(s): 354880960554026
[2018-02-09] MEDS: FILGRASTIM-SNDZ 480 MCG/0.8 ML SYRINGE SQ SCH (09:45)
[2018-02-09 11:03] LABS: Anisocytosis Slight; HCT 30.7 % (34.0-46.0); HGB 11.1 gm/dL (11.4-16.0); MCH 33.8 pg (25.0-35.0); MCHC 36.1 g/dL (31.0-37.0); MCV 93.7 fL (80.0-100.0); Macrocytosis Slight; Mean Platelet Volume 7.7; Platelet Count 152 k/uL (150-450); RBC 3.28 m/uL (3.80-5.40); RDW 18.4 % (11.5-15.5)
[2018-02-09 11:12] LABS: Anion Gap 10 mmol/L; Blood Urea Nitrogen 11 mg/dL (7-17); Calcium 8.1 mg/dL (8.4-10.2); Carbon Dioxide 20 mmol/L (22-30); Chloride 104 mmol/L (98-107); Glucose 91 mg/dL (74-99); Potassium 3.4 mmol/L (3.5-5.1); Sodium 134 mmol/L (137-145)
[2018-02-09 11:47] LABS: Band Neutrophils % 7 %; Eosinophils # (M) 0.09 k/uL (0-0.7); Lymphocytes # (M) 0.85 k/uL (1.0-4.8); Metamyelocytes # (M) 0.17 k/uL (0); Metamyelocytes % 2 %; Monocytes # (M) 1.62 k/uL (0-1.0); Neutrophils % (M) 62 %; Nucleated Red Blood Cells 2 /100 WBC (0-0); Total Cells Counted 200; WBC 8.5 k/uL (3.8-10.6)
[2018-02-09 11:48] LABS: Polychromasia Present
[2018-02-09] MEDS: POTASSIUM CHLORIDE ER 20 MEQ TAB.ER PO SCH ×2 (11:58→14:01)
--- NOTE | 2018-02-09 12:03 | PN ---
PROGRESS NOTE Angely is doing a lot better. Her spirits are a lot better. She is smiling today. She has no chest pain or breathing trouble. She is lying flat in bed. Her blood pressure is low and she states her blood pressure always runs low. She is tolerating her beta blockers well. She has developed a cardiomyopathy most likely post chemotherapy. EXAMINATION: She is afebrile 98 degrees Fahrenheit, pulse rate in the 80s, blood pressure 92/55 mmHg. Head neck examination normal. Heart sounds are normal. Lungs are clear to auscultation. Extremities are warm, no edema. IMPRESSION: Likely cardiomyopathy and related to chemotherapy without any heart failure symptoms at this time. SUGGEST: Metoprolol only for now. Hold off on KURT inhibitors and angiotensin receptor blockers and spironolactone because her blood pressure is between 80-95 mmHg. MMODL / IJN: [id number] /
[2018-02-09] MEDS: RIVAROXABAN 20 MG TAB PO SCH (17:23)
[2018-02-09] MEDS: ATORVASTATIN 40 MG TAB PO SCH (20:40)
[2018-02-10 06:08] LABS: Anisocytosis Slight; HCT 30.4 % (34.0-46.0); HGB 10.7 gm/dL (11.4-16.0); MCH 33.6 pg (25.0-35.0); MCHC 35.3 g/dL (31.0-37.0); MCV 95.1 fL (80.0-100.0); Macrocytosis Slight; Mean Platelet Volume 8.2; Platelet Count 168 k/uL (150-450); RBC 3.19 m/uL (3.80-5.40); RDW 18.6 % (11.5-15.5)
[2018-02-10 06:09] LABS: Anion Gap 9 mmol/L; Blood Urea Nitrogen 7 mg/dL (7-17); Calcium 8.2 mg/dL (8.4-10.2); Carbon Dioxide 18 mmol/L (22-30); Chloride 108 mmol/L (98-107); Glucose 99 mg/dL (74-99); Potassium 3.7 mmol/L (3.5-5.1); Sodium 135 mmol/L (137-145)
[2018-02-10] MEDS: SODIUM CHLORIDE 0.9% 1,000 ML IV SCH ×2 (06:26→16:00)
[2018-02-10] MEDS: DRONABINOL 2.5 MG CAP PO SCH ×2 (06:26→17:04)
[2018-02-10] MEDS: METOPROLOL TARTRATE 12.5 MG TAB PO SCH ×2 (08:01→20:09)
[2018-02-10] MEDS: FAMOTIDINE 20 MG TAB PO SCH (08:01)
[2018-02-10 08:04] LABS: Band Neutrophils % 17 %; Metamyelocytes % 5 %; Myelocytes % 6 %; Neutrophils % (M) 53 %; Nucleated Red Blood Cells 2 /100 WBC (0-0); Total Cells Counted 200
[2018-02-10 08:12] LABS: Eosinophils # (M) 0.23 k/uL (0-0.7); Lymphocytes # (M) 1.86 k/uL (1.0-4.8); Metamyelocytes # (M) 1.17 k/uL (0); WBC 23.3 k/uL (3.8-10.6)
[2018-02-10 08:15] LABS: Polychromasia Present
[2018-02-10] MEDS: ONDANSETRON 4 MG TAB PO SCH ×2 (08:27→20:11)
[2018-02-10] MEDS: SPIRONOLACTONE 25 MG TAB PO SCH (10:04)
--- NOTE | 2018-02-10 10:08 | P.PN ---
Subjective Progress Note Date: 02/09/18 (Late entry note) Principal diagnosis: Acute exacerbation of systolic heart failure, acute on chronic atrial fibrillation with rapid ventricular response, hyponatremia and hypokalemia, stage III renal failure, leukopenia, intravascular volume depletion and dehydration, hypertension hypertensive cardiovascular disease 02/09/2018, patient seen eval examined during the rounds, she is feeling better in terms of diarrhea denies any chest pain or radiation of pain denies any palpitations, cardiovascular services evaluating him a clinically slightly better blood pressure has improved as well, patient is suspected to have cardiomyopathy as per cardiovascular services suspicion of chemotherapy related 62-year-old female with prior history of chronic atrial fibrillation also have issues associated with the rectal cancer has been on chemotherapy and follows Dr. Elder, patient presented emergency department with 2 day history of intermittent chest pain and discomfort along with palpitation denies any shortness of breath symptoms have been having a flareup Petrin with some waxing and waning director pain is predominately present on the right side patient also has some nausea but no vomiting or diarrhea with those problem she presented into emergency department was seen eval reexamined and admitted into the hospital, patient has significant history of dyslipidemia hypertension has been her anticoagulation, on specific questioning she denies any seizure-like activity loss of consciousness or hemiparesis, denies any vomiting or diarrhea denies any abdominal discomfort, does have mild degree or shortness of breath pain during evaluation has improved however, diarrhea denies any bowel or bladder related problems except as noted and discussed above, laboratory data reviewed significant findings include leukopenia, significant hyponatremia hypokalemia and his stage III renal failure, chest x-ray revealed COPD-like changes with chronic prominent interstitium no acute findings identified, echocardiogram revealed ejection fraction of 35% with normal PA pressure mild TR and MS is noted along with MR Objective - Vital Signs Vital signs: Vital Signs Temp 98.3 F 02/10/18 08:00 Pulse 89 02/10/18 08:00 Resp 17 02/10/18 08:00 BP 106/60 02/10/18 08:00 Pulse Ox 95 02/10/18 08:00 Intake & Output 02/09/18 02/10/18 02/10/18 18:59 06:59 18:59 Intake Total 1220 180 Output Total 500 1200 Balance 720 -1200 180 Weight 58.8 kg Intake: Intake, IV Titration 800 Amount Sodium Chloride 0.9% 1, 800 000 ml @ 100 mls/hr IV . Q10H [facility] Rx#:[id number] Oral 420 180 Output: Urine 500 Stool 1200 Other: Voiding Method Toilet Toilet # Voids 2 # Bowel Movements 1 2 - Exam General appearance: alert, in no apparent distress Head exam: Present: atraumatic Eye exam: Present: normal appearance, PERRL ENT exam: Present: normal oropharynx Neck exam: Present: normal inspection Respiratory exam: Present: normal lung sounds bilaterally. Absent: chest wall tenderness Cardiovascular Exam: Present: irregular rhythm GI/Abdominal exam: Present: soft. Absent: tenderness Extremities exam: Present: normal inspection. Absent: pedal edema, calf tenderness Neurological exam: Present: alert Psychiatric exam: Present: normal affect, normal mood Skin exam: Present: normal color - Labs CBC & Chem 7: 02/10/18 05:41 02/10/18 05:41 Labs: Abnormal Lab Results - Last 24 Hours (Table) 02/09/18 02/09/18 02/10/18 Range/Units 10:32 10:32 05:41 WBC 23.3 H (3.8-10.6) k/uL RBC 3.28 L 3.19 L (3.80-5.40) m/uL Hgb 11.1 L 10.7 L (11.4-16.0) gm/dL Hct 30.7 L 30.4 L (34.0-46.0) % RDW 18.4 H 18.6 H (11.5-15.5) % Neutrophils # (Manual) 16.30 H (1.3-7.7) k/uL Lymphocytes # (Manual) 0.85 L (1.0-4.8) k/uL Monocytes # (Manual) 1.62 H 2.80 H (0-1.0) k/uL Metamyelocytes # (Man) 0.17 H 1.17 H (0) k/uL Myelocytes # (Manual) 1.40 H (0) k/uL Nucleated RBCs 2 H 2 H (0-0) /100 WBC Sodium 134 L (137-145) mmol/L Potassium 3.4 L (3.5-5.1) mmol/L Chloride (98-107) mmol/L Carbon Dioxide 20 L (22-30) mmol/L Calcium 8.1 L (8.4-10.2) mg/dL 02/10/18 Range/Units 05:41 WBC (3.8-10.6) k/uL RBC (3.80-5.40) m/uL Hgb (11.4-16.0) gm/dL Hct (34.0-46.0) % RDW (11.5-15.5) % Neutrophils # (Manual) (1.3-7.7) k/uL Lymphocytes # (Manual) (1.0-4.8) k/uL Monocytes # (Manual) (0-1.0) k/uL Metamyelocytes # (Man) (0) k/uL Myelocytes # (Manual) (0) k/uL Nucleated RBCs (0-0) /100 WBC Sodium 135 L (137-145) mmol/L Potassium (3.5-5.1) mmol/L Chloride 108 H (98-107) mmol/L Carbon Dioxide 18 L (22-30) mmol/L Calcium 8.2 L (8.4-10.2) mg/dL Microbiology - Last 24 Hours (Table) 02/07/18 12:50 Stool Culture - Preliminary Stool Assessment and Plan Assessment: Episode of palpitation and chest pain related to acute on chronic systolic heart failure and atrial fibrillation with rapid ventricular response Electrolyte imbalance with severe hyponatremia and hypokalemia Stage III renal failure Leukopenia Intravascular volume depletion and dehydration Borderline hypotension Plan: Continue anticoagulation as planned with oral agent Gentle rehydration Adjustment of better 2 blockers Consult cardiology as well as hematology oncology, recommendations reviewed Replace electrolytes including potassium Continue home medication, adjustment of KURT inhibitor's and better blockers as tolerated Further recommendations pending plan of care as per clinical response of the patient Time with Patient: Greater than 30
[2018-02-10] MEDS ORDERED: LOPERAMIDE 2 MG CAP PO PRN (10:21)
[2018-02-10] MEDS ORDERED: PETROLATUM, WHITE OINT 50 GM TUBE TOPICAL PRN (10:28)
--- NOTE | 2018-02-10 10:49 | P.PN ---
Subjective Progress Note Date: 02/10/18 This is a pleasant 62-year-old female who follows regularly with Dr. Kennedy in the office. She has known history of hyperlipidemia, chronic persistent atrial fibrillation, on Xarelto for anticoagulation. Prior pacemaker implantation for significant pauses, patient also has colorectal cancer for which she underwent surgery, she currently has a colostomy. Patient also underwent radiation treatment and is currently undergoing chemotherapy. She presents to the hospital on this occasion with symptoms of chest tightness with associated palpitations. She states that when she stands up she feels extremely weak and lightheaded. According to the patient, she changes her colostomy bag at least 6-8 times per day. EKG on arrival here showed atrial fibrillation with a ventricular paced rhythm. Subsequent EKG showed atrial fibrillation with a controlled ventricular response. Chest x-ray showed chronic changes without acute pulmonary process. Echocardiogram with Doppler study was performed which revealed an ejection fraction of 35-40%. Patient's most recent echo performed in July revealed a normal left ventricular systolic function. The pressure on arrival here 73/48 with a heart rate in the 70s, 97% on room air. Blood pressure this morning 105/56 with a heart rate in the 90s, 100% on 2 L of oxygen. Blood cell count 2.6 on admission, 1.7 this morning. Hemoglobin 13.9 on admission, 10.7 this morning. Platelet count is 134. Sodium on admission 129, 133 this morning. Potassium on admission 2.9, 3.0 this morning. BUN on admission 30 and creatinine 1.5, this morning 19 and 0.9. Magnesium level I.7, total bilirubin 1.5 AST 55 ALT 70 alk phos 132 liver enzymes this morning have normalized. Troponins are negative 3. At the time of my examination this morning, patient complains of feeling extremely weak. She denies any chest discomfort, no palpitations. Breathing is overall stable. 02/10/2018 Patient was seen and examined this morning, echocardiogram with Doppler study revealed an ejection fraction of 35-40%. Blood pressure this morning 106/60 with a heart rate in the 80s, 95% on room air. She is not currently on an KURT inhibitor because of hypotension, we will add a small dose of Aldactone to her medication regime today. She may be able to be discharged once cleared by primary and we will make her a follow-up appointment in the office post discharge. Objective - Vital Signs Vital signs: Vital Signs Temp 98.3 F 02/10/18 08:00 Pulse 89 02/10/18 08:00 Resp 17 02/10/18 08:00 BP 106/60 02/10/18 08:00 Pulse Ox 95 02/10/18 08:00 Intake & Output 02/09/18 02/10/18 02/10/18 18:59 06:59 18:59 Intake Total 1220 180 Output Total 500 1200 Balance 720 -1200 180 Weight 58.8 kg Intake: Intake, IV Titration 800 Amount Sodium Chloride 0.9% 1, 800 000 ml @ 100 mls/hr IV . Q10H [facility] Rx#:[id number] Oral 420 180 Output: Urine 500 Stool 1200 Other: Voiding Method Toilet Toilet # Voids 2 # Bowel Movements 1 2 - Exam PHYSICAL EXAMINATION: GENERAL: 62-year-old female in no apparent distress at the time of my examination HEENT: Head is atraumatic, normocephalic. Pupils equal, round. Sclera anicteric. Conjunctiva are clear. Mucous membranes of the mouth are moist. Neck is supple. There is no elevated jugular venous pressure.] bruit is heard. HEART EXAMINATION: Heart S1 and S2 irregularly irregular CHEST EXAMINATION: Lungs are clear to auscultation and precussion. No chest wall tenderness is noted on palpation or with deep breathing. ABDOMEN: Soft, nontender. Bowel sounds are heard. No organomegaly noted. EXTREMITIES: 2+ peripheral pulses with no evidence of peripheral edema and no calf tenderness noted. NEUROLOGIC patient is awake, alert and oriented -3. . - Labs CBC & Chem 7: 02/10/18 05:41 02/10/18 05:41 Labs: Abnormal Lab Results - Last 24 Hours (Table) 02/09/18 02/09/18 02/10/18 Range/Units 10:32 10:32 05:41 WBC 23.3 H (3.8-10.6) k/uL RBC 3.28 L 3.19 L (3.80-5.40) m/uL Hgb 11.1 L 10.7 L (11.4-16.0) gm/dL Hct 30.7 L 30.4 L (34.0-46.0) % RDW 18.4 H 18.6 H (11.5-15.5) % Neutrophils # (Manual) 16.30 H (1.3-7.7) k/uL Lymphocytes # (Manual) 0.85 L (1.0-4.8) k/uL Monocytes # (Manual) 1.62 H 2.80 H (0-1.0) k/uL Metamyelocytes # (Man) 0.17 H 1.17 H (0) k/uL Myelocytes # (Manual) 1.40 H (0) k/uL Nucleated RBCs 2 H 2 H (0-0) /100 WBC Sodium 134 L (137-145) mmol/L Potassium 3.4 L (3.5-5.1) mmol/L Chloride (98-107) mmol/L Carbon Dioxide 20 L (22-30) mmol/L Calcium 8.1 L (8.4-10.2) mg/dL 02/10/18 Range/Units 05:41 WBC (3.8-10.6) k/uL RBC (3.80-5.40) m/uL Hgb (11.4-16.0) gm/dL Hct (34.0-46.0) % RDW (11.5-15.5) % Neutrophils # (Manual) (1.3-7.7) k/uL Lymphocytes # (Manual) (1.0-4.8) k/uL Monocytes # (Manual) (0-1.0) k/uL Metamyelocytes # (Man) (0) k/uL Myelocytes # (Manual) (0) k/uL Nucleated RBCs (0-0) /100 WBC Sodium 135 L (137-145) mmol/L Potassium (3.5-5.1) mmol/L Chloride 108 H (98-107) mmol/L Carbon Dioxide 18 L (22-30) mmol/L Calcium 8.2 L (8.4-10.2) mg/dL Microbiology - Last 24 Hours (Table) 02/07/18 12:50 Stool Culture - Preliminary Stool Assessment and Plan Plan: Assessment and plan #1 chest discomfort, associated palpitations, atypical for acute coronary syndrome. Troponins negative 3. EKG shows paced rhythm with underlying A. fib #2 chronic persistent atrial fibrillation on Xarelto for anticoagulation #3 hyperlipidemia #4 colorectal cancer with prior surgery, currently undergoing chemotherapy #5 Hypokalemia and hypomagnesemia Plan Echocardiogram with Doppler study showed an ejection fraction of 35-40%, could be secondary to chemotherapy, most recent echo performed in July 2017 showed a normal ejection fraction at that time. We will add Aldactone to her medication regime, she's not currently on an KURT inhibitor because of hypotension. She may be able to be discharged home from cardiology's perspective and we will make her a follow-up appointment in the office post discharge. DNP note has been reviewed, I agree with a documented findings and plan of care. Patient was seen and examined.
--- NOTE | 2018-02-10 10:51 | P.PN ---
Subjective Progress Note Date: 02/10/18 Principal diagnosis: poor oral intake, dehydration, diarrhea Pt seen in follow up, she states her taste buds are coming back, she can tolerate oral intake better, no nausea or vomiting, her lips are sore, mouth pain is better, denies chest pain, MARYELLEN, she has persistent diarrhea, denies bloody stool or pain with BM. Objective - Vital Signs Vital signs: Vital Signs Temp 98.3 F 02/10/18 08:00 Pulse 89 02/10/18 08:00 Resp 17 02/10/18 08:00 BP 106/60 02/10/18 08:00 Pulse Ox 95 02/10/18 08:00 Intake & Output 02/09/18 02/10/18 02/10/18 18:59 06:59 18:59 Intake Total 1220 180 Output Total 500 1200 Balance 720 -1200 180 Weight 58.8 kg Intake: Intake, IV Titration 800 Amount Sodium Chloride 0.9% 1, 800 000 ml @ 100 mls/hr IV . Q10H [facility] Rx#:[id number] Oral 420 180 Output: Urine 500 Stool 1200 Other: Voiding Method Toilet Toilet # Voids 2 # Bowel Movements 1 2 - Constitutional General appearance: Present: average body habitus, cooperative - EENT EENT Comment(s): dry, cracked lips, mild oral redness, dentures fit poorly - Respiratory Respiratory: bilateral: CTA - Cardiovascular Heart sounds: normal: S1, S2 - Gastrointestinal General gastrointestinal: Present: normal bowel sounds, soft. Absent: absent bowel sounds, decreased bowel sounds, distended, hepatomegaly, hyperactive bowel sounds, organomegaly, rigid, scaphoid, splenomegaly, tenderness, umbilical hernia, ventral hernia - Neurologic Neurologic: Present: CNII-XII intact - Musculoskeletal Musculoskeletal: Present: strength equal bilaterally - Psychiatric Psychiatric: Present: A&O x's 3, appropriate affect, intact judgment & insight - Labs CBC & Chem 7: 02/10/18 05:41 02/10/18 05:41 Labs: Abnormal Lab Results - Last 24 Hours (Table) 02/09/18 02/09/18 02/10/18 Range/Units 10:32 10:32 05:41 WBC 23.3 H (3.8-10.6) k/uL RBC 3.28 L 3.19 L (3.80-5.40) m/uL Hgb 11.1 L 10.7 L (11.4-16.0) gm/dL Hct 30.7 L 30.4 L (34.0-46.0) % RDW 18.4 H 18.6 H (11.5-15.5) % Neutrophils # (Manual) 16.30 H (1.3-7.7) k/uL Lymphocytes # (Manual) 0.85 L (1.0-4.8) k/uL Monocytes # (Manual) 1.62 H 2.80 H (0-1.0) k/uL Metamyelocytes # (Man) 0.17 H 1.17 H (0) k/uL Myelocytes # (Manual) 1.40 H (0) k/uL Nucleated RBCs 2 H 2 H (0-0) /100 WBC Sodium 134 L (137-145) mmol/L Potassium 3.4 L (3.5-5.1) mmol/L Chloride (98-107) mmol/L Carbon Dioxide 20 L (22-30) mmol/L Calcium 8.1 L (8.4-10.2) mg/dL 02/10/18 Range/Units 05:41 WBC (3.8-10.6) k/uL RBC (3.80-5.40) m/uL Hgb (11.4-16.0) gm/dL Hct (34.0-46.0) % RDW (11.5-15.5) % Neutrophils # (Manual) (1.3-7.7) k/uL Lymphocytes # (Manual) (1.0-4.8) k/uL Monocytes # (Manual) (0-1.0) k/uL Metamyelocytes # (Man) (0) k/uL Myelocytes # (Manual) (0) k/uL Nucleated RBCs (0-0) /100 WBC Sodium 135 L (137-145) mmol/L Potassium (3.5-5.1) mmol/L Chloride 108 H (98-107) mmol/L Carbon Dioxide 18 L (22-30) mmol/L Calcium 8.2 L (8.4-10.2) mg/dL Microbiology - Last 24 Hours (Table) 02/07/18 12:50 Stool Culture - Preliminary Stool Assessment and Plan (1) Dehydration Narrative/Plan: Pt has difficulty with oral irritation and sensitivity from Oxaliplatin/ flouracil chemo, she also loses her taste. This has improved, she is tolerating oral intake a little better. Current Visit: Yes Status: Acute Priority: High Code(s): E86.0 - DEHYDRATION SNOMED Code(s): 62950470 (2) Pancytopenia due to antineoplastic chemotherapy Narrative/Plan: WBC elevation from GCS-F, this has been stopped. Hgb and platelets low but not requiring treatment at this time Current Visit: Yes Status: Acute Code(s): D61.810 - ANTINEOPLASTIC CHEMOTHERAPY INDUCED PANCYTOPENIA; T45.1X5A - ADVERSE EFFECT OF ANTINEOPLASTIC AND IMMUNOSUP DRUGS, INIT SNOMED Code(s): 932179506617901 (3) Rectal adenocarcinoma Narrative/Plan: Plan is to have Thera 5FU testing done outpatient as this will give a tolerable dose of 5FU as pt symptoms are mostly side effects of the same and, despite 2 dose reductions, the symptoms are still just as severe. Pt understands she needs to go to office and have the blood drawn on discharge and she will follow up with Dr. Elder for results and treatment plan. Chemo will be held for now, she verbalized understanding plan Current Visit: No Status: Acute Priority: High Code(s): C20 - MALIGNANT NEOPLASM OF RECTUM SNOMED Code(s): 788480043 Plan: salt and soda for oral irritation antidiarrheals added petroleum for lips
[2018-02-10] MEDS: SALT AND SODA MOUTHWASH 1,000 ML PO SCH ×4 (11:15→23:03)
--- NOTE | 2018-02-10 11:32 | CDI ---
Last Revision, July 2017 Documentation Clarification Form Date: 02/10/18 From: Laney Young RN, CCDS Admit Date: 02/06/2018 11:23:00 AM Patient Name: Angely Adan Visit Number: [id number] Discharge Date: ATTENTION: The Clinical Documentation Specialists (CDI) and [facility] Coding Staff appreciate your assistance in clarifying documentation. Please respond to the clarification below the line at the bottom and electronically sign. The CDI & [facility] Coding staff will review the response and follow-up if needed. Please note: Queries are made part of the Legal Health Record. If you have any questions, please contact the author of this message via ITS. Dr. Chente Elder Protein calorie malnutrition has been documented in medical consult on 02/07/18. History/Risk Factors: Adenocarcinoma of the Rectus stage IIIB, Pancytopenia, Chronic persistent atrial fibrillation, Chronic renal failure stage III, Hypertension, Clinical Indicators: Patient has altered taste, mouth sores, ill-fitting dentures with poor appetite for past 1-3 months per nutritional evaluation. Labs: Albumin 2.9, Total Protein 4.9 Current BMI: 20.9 Insufficient energy intake: decreased intake<50 % of calorie needs, altered taste after chemo Weight Loss: Yes, 15 % involuntary weight loss in past 3 months Treatment: for Mild Protein-Calorie Malnutrition Marinol PO Protein shakes Monitor Intake and Output Dietary Consult: Yes Lab monitoring: In your professional opinion, can you please clarify if these findings signify one of the following conditions? Moderate Protein-Calorie Malnutrition Severe Protein-Calorie Malnutrition Other condition, please specify Unable to determine Please continue to document in your progress notes and discharge summary in order to capture severity of illness and risk of mortality. Include clinical findings that support your diagnosis. MTDD
[2018-02-10] MEDS: RIVAROXABAN 20 MG TAB PO SCH (17:04)
[2018-02-10] MEDS: ATORVASTATIN 40 MG TAB PO SCH (20:08)
--- NOTE | 2018-02-10 22:13 | PN ---
PROGRESS NOTE SUBJECTIVE: This is a white female states she is feeling much better. Her oral intake is still poor, but her mouth is greatly diminished Cardiovascular S1-S2. Lungs clear. GI increased bowel sounds. Hematology negative Homans. Psych: Fair mood and affect. ASSESSMENT AND PLAN: 1. Dehydration. 2. Pancytopenia due neoplastic chemotherapy. 3. Breast adenocarcinoma. 4. Leukocytosis, unclear etiology. 5. Please see further orders. 6. Chronic anemia. 7. Hyponatremia. 8. Continue current treatment. MMODL / IJN: [id number] /
[2018-02-11] MEDS: SODIUM CHLORIDE 0.9% 1,000 ML IV SCH ×2 (03:25→11:04)
[2018-02-11] MEDS: SALT AND SODA MOUTHWASH 1,000 ML PO SCH ×5 (06:17→23:46)
[2018-02-11] MEDS: DRONABINOL 2.5 MG CAP PO SCH ×2 (06:18→16:16)
[2018-02-11 06:36] LABS: ALT 42 U/L (9-52); AST 39 U/L (14-36); Albumin 2.2 g/dL (3.5-5.0); Alkaline Phosphatase 122 U/L (38-126); Anion Gap 10 mmol/L; Blood Urea Nitrogen 6 mg/dL (7-17); Calcium 7.9 mg/dL (8.4-10.2); Carbon Dioxide 18 mmol/L (22-30); Chloride 110 mmol/L (98-107); Glucose 101 mg/dL (74-99); Potassium 3.5 mmol/L (3.5-5.1); Sodium 138 mmol/L (137-145); Total Bilirubin 0.4 mg/dL (0.2-1.3); Total Protein 4.2 g/dL (6.3-8.2)
[2018-02-11 06:46] LABS: Anisocytosis Slight; HCT 31.2 % (34.0-46.0); HGB 10.5 gm/dL (11.4-16.0); MCH 33.4 pg (25.0-35.0); MCHC 33.6 g/dL (31.0-37.0); MCV 99.4 fL (80.0-100.0); Macrocytosis Moderate; Mean Platelet Volume 7.6; Platelet Count 151 k/uL (150-450); RBC 3.13 m/uL (3.80-5.40); RDW 19.3 % (11.5-15.5)
[2018-02-11 07:56] LABS: Band Neutrophils % 1 %; Metamyelocytes # (M) 0.98 k/uL (0); Metamyelocytes % 3 %; Myelocytes % 8 %; Neutrophils % (M) 77 %; Nucleated Red Blood Cells 1 /100 WBC (0-0); Total Cells Counted 200
[2018-02-11 08:01] LABS: Eosinophils # (M) 0.65 k/uL (0-0.7); Lymphocytes # (M) 1.63 k/uL (1.0-4.8); Monocytes # (M) 1.63 k/uL (0-1.0); WBC 32.5 k/uL (3.8-10.6)
[2018-02-11 08:04] LABS: Polychromasia Present
[2018-02-11] MEDS: FAMOTIDINE 20 MG TAB PO SCH (08:05)
[2018-02-11] MEDS: SPIRONOLACTONE 25 MG TAB PO SCH (08:05)
[2018-02-11] MEDS: METOPROLOL TARTRATE 12.5 MG TAB PO SCH ×2 (08:05→19:57)
[2018-02-11] MEDS: ONDANSETRON 4 MG TAB PO SCH ×2 (08:09→19:57)
--- NOTE | 2018-02-11 09:07 | XR ---
EXAMINATION TYPE: XR chest 1V DATE OF EXAM: 02/11/2018 COMPARISON: NONE HISTORY: 02/06/2018 TECHNIQUE: Single frontal view of the chest is obtained. FINDINGS: Heart is enlarged. Hyperinflation seen cardiac device and Mediport catheter. Atherosclerot ic change aorta. Underlying COPD suggested. IMPRESSION: Cardiomegaly and COPD.
--- NOTE | 2018-02-11 10:33 | P.PN ---
Subjective Progress Note Date: 02/11/18 Principal diagnosis: poor oral intake, dehydration, diarrhea Patient seen today in follow-up. Her appetite is better, she is tolerating solid food, she is still having watery stool with bits of solid matter, her ostomy output consistency is typically like oatmeal. She denies oral irritation , difficulty swallowing, nausea, pain. She has only been ambulating in the room , wants a shower this morning, encouraged her to ambulate in the hallway. Objective - Vital Signs Vital signs: Vital Signs Temp 97.6 F 02/11/18 08:00 Pulse 89 02/11/18 08:00 Resp 18 02/11/18 08:00 BP 94/58 02/11/18 08:00 Pulse Ox 98 02/11/18 08:00 Intake & Output 02/10/18 02/11/18 02/11/18 18:59 06:59 18:59 Intake Total 520 1600 Output Total 400 Balance 520 1600 -400 Weight 58.8 kg 60.5 kg Intake: Intake, IV Titration 1600 Amount Sodium Chloride 0.9% 1, 1600 000 ml @ 100 mls/hr IV . Q10H [facility] Rx#:[id number] Oral 520 Output: Stool 400 Other: Voiding Method Toilet Toilet # Voids 2 - Constitutional General appearance: Present: cooperative, thin - EENT Eyes: Present: EOMI ENT: Present: normal oropharynx - Respiratory Respiratory: bilateral: CTA - Cardiovascular Heart sounds: normal: S1, S2 - Gastrointestinal Gastrointestinal Comment(s): right sided ostomy, reddish/brown liquid with some solid matter General gastrointestinal: Present: normal bowel sounds, soft. Absent: absent bowel sounds, decreased bowel sounds, distended, hepatomegaly, hyperactive bowel sounds, organomegaly, rigid, scaphoid, splenomegaly, tenderness, umbilical hernia, ventral hernia - Integumentary Integumentary: Present: normal - Neurologic Neurologic: Present: CNII-XII intact - Musculoskeletal Musculoskeletal: Present: generalized weakness, strength equal bilaterally - Psychiatric Psychiatric: Present: A&O x's 3, appropriate affect, intact judgment & insight - Labs CBC & Chem 7: 02/11/18 06:01 02/11/18 06:01 Labs: Abnormal Lab Results - Last 24 Hours (Table) 02/11/18 02/11/18 Range/Units 06:01 06:01 WBC 32.5 H* (3.8-10.6) k/uL RBC 3.13 L (3.80-5.40) m/uL Hgb 10.5 L (11.4-16.0) gm/dL Hct 31.2 L (34.0-46.0) % RDW 19.3 H (11.5-15.5) % Neutrophils # (Manual) 25.30 H (1.3-7.7) k/uL Monocytes # (Manual) 1.63 H (0-1.0) k/uL Metamyelocytes # (Man) 0.98 H (0) k/uL Myelocytes # (Manual) 2.60 H (0) k/uL Nucleated RBCs 1 H (0-0) /100 WBC Chloride 110 H (98-107) mmol/L Carbon Dioxide 18 L (22-30) mmol/L BUN 6 L (7-17) mg/dL Glucose 101 H (74-99) mg/dL Calcium 7.9 L (8.4-10.2) mg/dL AST 39 H (14-36) U/L Total Protein 4.2 L (6.3-8.2) g/dL Albumin 2.2 L (3.5-5.0) g/dL Microbiology - Last 24 Hours (Table) 02/07/18 12:50 Stool Culture - Final Stool Assessment and Plan (1) Dehydration Narrative/Plan: patient supported with IV fluids initially, oral intake is improving, reduce IV fluids. Current Visit: Yes Status: Acute Priority: High Code(s): E86.0 - DEHYDRATION SNOMED Code(s): 43314832 (2) Pancytopenia due to antineoplastic chemotherapy Narrative/Plan: White blood cell count recovered with G-CSF. Hemoglobin and platelets improved. Current Visit: Yes Status: Acute Priority: Low Code(s): D61.810 - ANTINEOPLASTIC CHEMOTHERAPY INDUCED PANCYTOPENIA; T45.1X5A - ADVERSE EFFECT OF ANTINEOPLASTIC AND IMMUNOSUP DRUGS, INIT SNOMED Code(s): 892647861024686 (3) Rectal adenocarcinoma Narrative/Plan: Plan is to hold treatment, [id number] testing is to be performed, follow-up with Dr. Elder for results, dose adjustments based on results. Patient is aware of plan, verbalizes understanding needing to come to the office for that lab draw and that treatment is on hold for now. Current Visit: No Status: Acute Priority: High Code(s): C20 - MALIGNANT NEOPLASM OF RECTUM SNOMED Code(s): 034009125 Plan: Adjustment of antidiarrheal meds Encouraged pt to ambulate Encouraged oral intake/CHRISTIANO diet
[2018-02-11] MEDS: LOPERAMIDE 2 MG CAP PO SCH ×3 (11:03→19:59)
[2018-02-11] MEDS: RIVAROXABAN 20 MG TAB PO SCH (16:15)
--- NOTE | 2018-02-11 16:29 | CONS ---
CONSULTATION DATE OF SERVICE: 02/11/2018. REASON FOR CONSULTATION: Leukocytosis. HISTORY OF PRESENT ILLNESS: The patient is a 62-year-old female with a past medical history significant for adenocarcinoma of the rectum diagnosed back in March of 2017 for which the patient has been on chemotherapy. Last chemo has been about 3 weeks ago. The patient is presenting to the [facility] ER on 02/06/2018 with a chief complaint of chest discomfort and palpitation. Patient complaining of sores in her mouth and unable to swallow anything. The patient's pain in the chest has been going on for about 2 days prior to admission to the hospital, more of a dull aching pain with no significant radiation associated with shortness of breath. No associated cough or any sputum production. The patient has been complaining of significant diarrhea. With these symptoms, the patient has been evaluated by the ER physician. On arrival to the ER, the patient did not have any fever on presentation. The patient did have a white count of 2.6, was down to 1. For which the patient will be started on filgrastim. With the patient white count being up to 23.3 yesterday with 12.5 today that prompted infectious disease consultation. For her diarrhea, the patient did have stool for C diff checked on February 07, which came back to be negative. The patient's sores in her mouth seemed to have slightly improved. Denies any difficulty swallowing or any nausea or vomiting and denies having any chest pain or shortness of breath. No cough. No abdominal pain. The patient still has significant output in her ileostomy bag, which is watery, though the crampy abdominal pain has slightly decreased and no urinary symptoms. REVIEW OF SYSTEMS: Constitutional: Positive for weakness. No fever has been recorded. Eyes: No complaint. ENT no complaint. Respiratory as per HPI. Cardiovascular as per HPI. Genitourinary: No complaint. Gastrointestinal: As per HPI. Musculoskeletal no complaint. Integumentary: No complaint. Psychological no complaint. Endocrine no complaint. Neurologic no complaint. PAST MEDICAL HISTORY: Atrial fibrillation. Did have rectal cancer, CVA, TIA, gastroesophageal reflux disease, GI bleed. PAST SURGICAL HISTORY: Bowel resection, cholecystectomy, and pacemaker placement, colonoscopy and MediPort placement for chemo. SOCIAL HISTORY: Remote history of smoking. Quit back in 1990. Has smoked about 15 years, 2 pack per day. Does admit to marijuana use. FAMILY HISTORY: Mother with history of DVT and skin cancer. Father of old age. ALLERGIES: No known drug allergies. MEDICATION: Currently include the patient is on Xanax, Lipitor, Marinol, Pepcid, Imodium, Lopressor, Nitrostat, Zofran, saline, Aldactone. EXAMINATION: Blood pressure is 94/58 with a pulse of 89, temperature is 97.6 with no fever recorded on this admission. She is 98% on room air. General description is a middle aged female up in the bed in no distress. No tachypnea or accessory muscle of respiration use. HEENT: Shows slight pallor. No scleral icterus. Oral mucous membranes dry. No pharyngeal erythema or thrush. Neck trachea central. No thyromegaly. Lungs unlabored breathing. Clear to auscultation anteriorly. No wheeze or crackles. Heart S1-S2. Irregular rhythm noted. ABDOMEN: Soft, no tenderness. No rigidity. Ileostomy with mostly liquidy stool. EXTREMITIES: No edema of the feet. Skin examination: No rash or mass palpable. Neurological: Patient is awake, alert, oriented times three. Mood and affect normal. LABS: Hemoglobin is 10.5, white count 32.5 with a BUN of 6, creatinine 0.65. Electrolytes have been normal. Liver enzymes are normal. Stool for C difficile has been negative. Chest x-ray report negative for any pneumonia. DIAGNOSTIC IMPRESSION AND PLAN: Patient with the leukocytosis, more likely secondary to the filgrastim/drug effect. Clinically doubt any infectious etiology. The patient has been admitted to the hospital with chest pain and diarrhea/high ileostomy output. The stool for C difficile has been negative. Patient who did not have any fever. Chest x-ray report to be negative and no evidence of any cellulitis. PLAN: 1. No need for any systemic antibiotic therapy. 2. We will add Questran for symptomatic relief of her diarrhea. 3. We will follow up on the clinical condition and adjust her medications further if needed. Thank you for this consultation. We will follow this patient along with you. MMODL / IJN: [id number] /
[2018-02-11] MEDS: ATORVASTATIN 40 MG TAB PO SCH (19:57)
[2018-02-12] MEDS: SODIUM CHLORIDE 0.9% 1,000 ML IV SCH ×2 (00:25→18:38)
--- NOTE | 2018-02-12 05:26 | PN ---
PROGRESS NOTE SUBJECTIVE: A 62-year-old white female with chest pain and dehydration, has white count up to 33,000. Her white blood cell count stimulating meds were stopped 2 days ago. Possible septic workup per Dr. Bennett' recommendations are going to be continued and awaiting for his consult. Repeat stool culture, urine culture, chest x-ray, septic workup, blood cultures. Await his recommendations. She still has liquid diarrhea coming out of her colostomy bag. CARDIOVASCULAR: S1, S2. LUNGS: Clear. PSYCH: Fair mood and affect. GI: Soft. ASSESSMENT: 1. Chest pain. 2. Dehydration. 3. Possible viral gastroenteritis. Rule out possible septic workup. Await Dr. Bennett' recommendations. Check white count in the morning. MMODL / IJN: [id number] /
[2018-02-12] MEDS: SALT AND SODA MOUTHWASH 1,000 ML PO SCH ×4 (05:34→21:21)
[2018-02-12 06:21] VITALS: RESP 16
[2018-02-12] MEDS: DRONABINOL 2.5 MG CAP PO SCH ×2 (08:28→17:58)
[2018-02-12] MEDS: SPIRONOLACTONE 25 MG TAB PO SCH (08:29)
[2018-02-12] MEDS: ONDANSETRON 4 MG TAB PO SCH ×2 (08:29→21:22)
[2018-02-12] MEDS: LOPERAMIDE 2 MG CAP PO SCH ×3 (08:29→21:22)
[2018-02-12] MEDS: METOPROLOL TARTRATE 12.5 MG TAB PO SCH ×2 (08:30→21:22)
[2018-02-12] MEDS: FAMOTIDINE 20 MG TAB PO SCH (08:30)
--- NOTE | 2018-02-12 11:02 | P.PN ---
Subjective Progress Note Date: 02/12/18 Principal diagnosis: poor oral intake, dehydration, diarrhea Patient seen today in follow-up. Pt appetite is good, oral irritation resolved , stool is at baseline of oatmeal consistency, no nausea or pain. She is ambulating in the hallway. Objective - Vital Signs Vital signs: Vital Signs Temp 97.9 F 02/12/18 06:20 Pulse 82 02/11/18 21:00 Resp 16 02/12/18 06:20 BP 111/57 02/12/18 06:20 Pulse Ox 95 02/12/18 06:20 Intake & Output 02/11/18 02/12/18 02/12/18 18:59 06:59 18:59 Intake Total 482 500 Output Total 800 400 Balance -318 100 Intake: Intake, IV Titration 300 Amount Sodium Chloride 0.9% 1, 300 000 ml @ 50 mls/hr IV . Q20H [facility] Rx#:[id number] Oral 482 200 Output: Stool 800 400 Other: Voiding Method Toilet Toilet # Voids 1 - Constitutional General appearance: Present: cooperative, no acute distress, thin - EENT Eyes: Present: anicteric sclerae ENT: Present: normal oropharynx - Respiratory Respiratory: bilateral: CTA - Cardiovascular Heart sounds: normal: S1, S2 - Gastrointestinal Gastrointestinal Comment(s): stool of paste like consistency in ostomy General gastrointestinal: Present: normal bowel sounds, soft - Integumentary Integumentary: Present: normal - Neurologic Neurologic: Present: CNII-XII intact - Musculoskeletal Musculoskeletal: Present: generalized weakness, strength equal bilaterally - Psychiatric Psychiatric: Present: A&O x's 3, appropriate affect, intact judgment & insight - Labs CBC & Chem 7: 02/11/18 06:01 02/11/18 06:01 Labs: Microbiology - Last 24 Hours (Table) 02/11/18 Unknown Urine Culture - Preliminary Urine,Voided 02/07/18 12:50 Stool Culture - Final Stool Assessment and Plan (1) Dehydration Narrative/Plan: Pt is tolerating oral intake in adequate amounts Current Visit: Yes Status: Resolved Priority: High Code(s): E86.0 - DEHYDRATION SNOMED Code(s): 43762648 (2) Pancytopenia due to antineoplastic chemotherapy Narrative/Plan: Anemia and thrombocytopenia do not require any intervention. Elevated WBCs r/t recent GCS-F, no fever, no intervention, pt will have labs outpatient Current Visit: Yes Status: Acute Priority: Low Code(s): D61.810 - ANTINEOPLASTIC CHEMOTHERAPY INDUCED PANCYTOPENIA; T45.1X5A - ADVERSE EFFECT OF ANTINEOPLASTIC AND IMMUNOSUP DRUGS, INIT SNOMED Code(s): 162171087359004 (3) Rectal adenocarcinoma Narrative/Plan: Chemo on hold. Pt will have Thera 5FU testing in the office. Current Visit: No Status: Acute Priority: High Code(s): C20 - MALIGNANT NEOPLASM OF RECTUM SNOMED Code(s): 519718526 Plan: Diarrhea resolved
--- NOTE | 2018-02-12 14:21 | PN ---
PROGRESS NOTE DATE OF SERVICE: 02/12/2018. REASON FOR FOLLOWUP: 1. Leukocytosis, more likely drug effect. 2. Diarrhea. INTERVAL HISTORY: The patient is currently afebrile. She is breathing comfortably. Denies having any chest pain or shortness of breath. No cough or abdominal pain. Her diarrhea has slowed down after initiation of the Questran. EXAMINATION: Blood pressure 111/57 with a pulse of 82, temperature 97.9. She is 95% on room air. General description is a middle aged female, lying in bed in no distress. Respiratory system: Unlabored breathing. Clear to auscultation anteriorly. HEART: S1, S2. Regular rate and rhythm. Abdomen soft, no tenderness. LABS: No new labs have been obtained today. DIAGNOSTIC IMPRESSION AND PLAN: 1. Patient with leukocytosis, more likely secondary to drug effect Filgrastim currently with no clear focus of infection off antibiotics, continue to monitor the patient off antibiotic therapy. 2. The patient diarrhea more likely drug effect seems to have responded to the Questran that will continue for a short course. Continue supportive care. MMODL / IJN: [id number] /
[2018-02-12 15:27] LABS: ALT 42 U/L (9-52); AST 36 U/L (14-36); Albumin 2.4 g/dL (3.5-5.0); Alkaline Phosphatase 108 U/L (38-126); Anion Gap 7 mmol/L; Blood Urea Nitrogen 6 mg/dL (7-17); Calcium 8.1 mg/dL (8.4-10.2); Carbon Dioxide 23 mmol/L (22-30); Chloride 106 mmol/L (98-107); Glucose 120 mg/dL (74-99); Potassium 3.7 mmol/L (3.5-5.1); Sodium 136 mmol/L (137-145); Total Bilirubin 0.4 mg/dL (0.2-1.3); Total Protein 4.5 g/dL (6.3-8.2)
[2018-02-12 15:28] LABS: Anisocytosis Slight; HCT 29.5 % (34.0-46.0); HGB 10.2 gm/dL (11.4-16.0); MCHC 34.6 g/dL (31.0-37.0); MCV 98.3 fL (80.0-100.0); Macrocytosis Slight; Mean Platelet Volume 8.1; Platelet Count 127 k/uL (150-450); RDW 19.6 % (11.5-15.5); WBC 18.8 k/uL (3.8-10.6)
[2018-02-12 16:06] LABS: Anisocytosis (M) Present; Band Neutrophils % 19 %; Basophils # (M) 0.19 k/uL (0-0.2); Metamyelocytes # (M) 1.32 k/uL (0); Metamyelocytes % 7 %; Monocytes # (M) 1.13 k/uL (0-1.0); Myelocytes # (M) 1.13 k/uL (0); Myelocytes % 6 %; Neutrophils % (M) 55 %; Nucleated Red Blood Cells 0 /100 WBC (0-0); Total Cells Counted 200
[2018-02-12] MEDS: RIVAROXABAN 20 MG TAB PO SCH (17:58)
[2018-02-12] MEDS: ATORVASTATIN 40 MG TAB PO SCH (21:22)
--- NOTE | 2018-02-12 23:09 | PN ---
PROGRESS NOTE SUBJECTIVE: [age] white female with poor intake, dehydration, diarrhea. Oral appetite is good. Ambulating down the hallway. Possible discharge home tomorrow. Temperature 97.9, respiratory rate 16, pulse 82. CARDIOVASCULAR: S1, S2. GI: Soft. HEMATOLOGY: Negative Homans. PSYCH: Fair mood and affect. VASCULAR: Normal dorsalis pedis, posterior tibial and radial pulse. ASSESSMENT: 1. Diarrhea, resolving. 2. Leukocytosis, improving. 3. Anal cancer. 4. Pancytopenia, improving. Possible discharge home in the morning. MMODL / IJN: [id number] /
[2018-02-13] MEDS: SALT AND SODA MOUTHWASH 1,000 ML PO SCH ×3 (00:13→09:37)
[2018-02-13 06:04] VITALS: BP 104/67; PULSE 69; TEMP 98
[2018-02-13 07:06] LABS: Anisocytosis Slight; HCT 29.1 % (34.0-46.0); MCH 32.8 pg (25.0-35.0); MCHC 34.5 g/dL (31.0-37.0); MCV 95.2 fL (80.0-100.0); Macrocytosis Slight; Mean Platelet Volume 8.1; Platelet Count 120 k/uL (150-450); RBC 3.06 m/uL (3.80-5.40); RDW 18.7 % (11.5-15.5)
[2018-02-13 08:06] LABS: ALT 37 U/L (9-52); AST 34 U/L (14-36); Albumin 2.5 g/dL (3.5-5.0); Alkaline Phosphatase 113 U/L (38-126); Anion Gap 9 mmol/L; Blood Urea Nitrogen 7 mg/dL (7-17); Calcium 8.1 mg/dL (8.4-10.2); Carbon Dioxide 24 mmol/L (22-30); Chloride 107 mmol/L (98-107); Glucose 109 mg/dL (74-99); Potassium 3.7 mmol/L (3.5-5.1); Sodium 140 mmol/L (137-145); Total Bilirubin 0.5 mg/dL (0.2-1.3); Total Protein 4.5 g/dL (6.3-8.2)
[2018-02-13 08:45] LABS: Band Neutrophils % 9 %; Eosinophils # (M) 0.17 k/uL (0-0.7); Metamyelocytes % 10 %; Myelocytes # (M) 0.17 k/uL (0); Myelocytes % 1 %; Neutrophils % (M) 67 %; Nucleated Red Blood Cells 2 /100 WBC (0-0); Total Cells Counted 200
[2018-02-13 08:46] LABS: Lymphocytes # (M) 1.02 k/uL (1.0-4.8); Monocytes # (M) 1.53 k/uL (0-1.0)
[2018-02-13 08:47] LABS: Polychromasia Present
[2018-02-13] MEDS: FAMOTIDINE 20 MG TAB PO SCH (09:30)
[2018-02-13] MEDS: METOPROLOL TARTRATE 12.5 MG TAB PO SCH (09:30)
[2018-02-13] MEDS: LOPERAMIDE 2 MG CAP PO SCH (09:30)
[2018-02-13] MEDS: DRONABINOL 2.5 MG CAP PO SCH (09:30)
[2018-02-13] MEDS: ONDANSETRON 4 MG TAB PO SCH (09:31)
[2018-02-13] MEDS: SPIRONOLACTONE 25 MG TAB PO SCH (09:31)
--- NOTE | 2018-02-13 11:47 | P.PN ---
Subjective Progress Note Date: 02/13/18 Principal diagnosis: poor oral intake, dehydration, diarrhea secondary to chemo Pt seen in f/u, she feels good, eating well, has an appetite, mouth sores a gone , no nausea, vomiting, her stool is at its baseline consistency, denies fever or pain. Objective - Vital Signs Vital signs: Vital Signs Temp 98 F 02/13/18 06:03 Pulse 69 02/13/18 06:03 Resp 16 02/13/18 06:03 BP 104/67 02/13/18 06:03 Pulse Ox 96 02/13/18 06:03 Intake & Output 02/12/18 02/13/18 02/13/18 18:59 06:59 18:59 Intake Total 400 550 Output Total 400 Balance 0 550 Intake: Intake, IV Titration 400 550 Amount Sodium Chloride 0.9% 1, 400 550 000 ml @ 50 mls/hr IV . Q20H [facility] Rx#:[id number] Output: Stool 400 Other: Voiding Method Toilet Toilet - Constitutional General appearance: Present: cooperative, no acute distress, thin - EENT Eyes: Present: anicteric sclerae, EOMI, normal appearance ENT: Present: normal oropharynx - Respiratory Respiratory: bilateral: CTA - Cardiovascular Heart sounds: normal: S1, S2 - Peripheral edema leg Peripheral Edema: bilateral: None - Gastrointestinal Gastrointestinal Comment(s): thick, red/brown stool in ostomy General gastrointestinal: Present: normal bowel sounds, soft - Integumentary Integumentary: Present: normal - Neurologic Neurologic: Present: CNII-XII intact - Musculoskeletal Musculoskeletal: Present: generalized weakness, strength equal bilaterally - Psychiatric Psychiatric: Present: A&O x's 3, appropriate affect, intact judgment & insight - Labs CBC & Chem 7: 02/13/18 06:38 02/13/18 06:38 Labs: Abnormal Lab Results - Last 24 Hours (Table) 02/12/18 02/12/18 02/13/18 Range/Units 14:42 14:42 06:38 WBC 18.8 H 17.0 H (3.8-10.6) k/uL RBC 3.00 L 3.06 L (3.80-5.40) m/uL Hgb 10.2 L 10.0 L (11.4-16.0) gm/dL Hct 29.5 L 29.1 L (34.0-46.0) % RDW 19.6 H 18.7 H (11.5-15.5) % Plt Count 127 L 120 L (150-450) k/uL Neutrophils # (Manual) 13.90 H 12.90 H (1.3-7.7) k/uL Monocytes # (Manual) 1.13 H 1.53 H (0-1.0) k/uL Metamyelocytes # (Man) 1.32 H 1.70 H (0) k/uL Myelocytes # (Manual) 1.13 H 0.17 H (0) k/uL Nucleated RBCs 2 H (0-0) /100 WBC Sodium 136 L (137-145) mmol/L BUN 6 L (7-17) mg/dL Creatinine 0.50 L (0.52-1.04) mg/dL Glucose 120 H (74-99) mg/dL Calcium 8.1 L (8.4-10.2) mg/dL Total Protein 4.5 L (6.3-8.2) g/dL Albumin 2.4 L (3.5-5.0) g/dL // Range/Units 06:38 WBC (3.8-10.6) k/uL RBC (3.80-5.40) m/uL Hgb (11.4-16.0) gm/dL Hct (34.0-46.0) % RDW (11.5-15.5) % Plt Count (150-450) k/uL Neutrophils # (Manual) (1.3-7.7) k/uL Monocytes # (Manual) (0-1.0) k/uL Metamyelocytes # (Man) (0) k/uL Myelocytes # (Manual) (0) k/uL Nucleated RBCs (0-0) /100 WBC Sodium (137-145) mmol/L BUN (7-17) mg/dL Creatinine (0.52-1.04) mg/dL Glucose 109 H (74-99) mg/dL Calcium 8.1 L (8.4-10.2) mg/dL Total Protein 4.5 L (6.3-8.2) g/dL Albumin 2.5 L (3.5-5.0) g/dL Microbiology - Last 24 Hours (Table) 02/11/18 Unknown Urine Culture - Final Urine,Voided Assessment and Plan (1) Dehydration Current Visit: Yes Status: Resolved Priority: High Code(s): E86.0 - DEHYDRATION SNOMED Code(s): 81713268 (2) Pancytopenia due to antineoplastic chemotherapy Narrative/Plan: Hgb and platelet counts recovering, no intervention Current Visit: Yes Status: Acute Priority: Low Code(s): D61.810 - ANTINEOPLASTIC CHEMOTHERAPY INDUCED PANCYTOPENIA; T45.1X5A - ADVERSE EFFECT OF ANTINEOPLASTIC AND IMMUNOSUP DRUGS, INIT SNOMED Code(s): 083147271750779 (3) Rectal adenocarcinoma Narrative/Plan: Pt will have her Thera 5FU testing done and follow up with Dr. Elder, appt in chart, she knows she has to go to the office for the lab draw. Chemo on hold for now Current Visit: No Status: Acute Priority: High Code(s): C20 - MALIGNANT NEOPLASM OF RECTUM SNOMED Code(s): 996333943 Plan: WBC elevation from recent GCS-F, WBC is trending down, no intervention needed at this time
--- NOTE | 2018-02-13 13:09 | CDI ---
Last Revision, July 2017 Documentation Clarification Form Date: 02/12/18 From: Laney Young RN, CCDS Admit Date: 02/06/2018 11:23:00 AM Patient Name: Angely Adan Visit Number: [id number] Discharge Date: ATTENTION: The Clinical Documentation Specialists (CDI) and [facility] Coding Staff appreciate your assistance in clarifying documentation. Please respond to the clarification below the line at the bottom and electronically sign. The CDI & [facility] Coding staff will review the response and follow-up if needed. Please note: Queries are made part of the Legal Health Record. If you have any questions, please contact the author of this message via ITS. Dr. Everardo Prajapati 02/06/18 patient presented with complaints of chest discomfort and palpitations 02/07/18 Cardiology consults: Chronic persistent atrial fibrillation, atypical for acute coronary syndrome. Troponins negative x3 02/07/18 H&P Episode of palpitation and chest pain related to acute on chronic systolic heart failure and atrial fibrillation with rapid ventricular response. Stage III renal failure. Intravascular depletion and dehydration 02/07/18 Oncology consult: Adenocarcinoma of rectum stage IIIB, Pancytopenia secondary to chemotherapy Hyponatremia/Hypokalemia secondary to dehydration, diarrhea worsened with chemotherapy 02/09 Cardiology (Dr. Varela) Likely cardiomyopathy and related to chemotherapy without any heart failure symptoms at this time. metoprolol only for now. Hold off on KURT inhibitors and angiotensions and spironolactone because her blood pressure is between 80-95 mmHg. ECHO: EF between 35-40 % Patient history/risk factors: Rectal cancer, Atrial fibrillation (on Xarelto), CVA/TIA Clinical Indications: EKG on admit had A.fib with rate of 100. Vital signs on admission 73/48 73 20 97.8 97 % Lab findings: WBC 2.6 NA+ 129, K+ 2.9, BUN 38, CR 1.58 Chest x-ray chronic changes without acute process Other Clinical Indicators: ED evaluation on admission Chest pain, Atrial fibrillation with RVR dehydration, Hypokalemia Treatment: IV Fluids Monitor Labs Potassium/Magnesium replacement Imodium PO per orders Aldactone PO Xarelto PO Lopressor PO The patients principal diagnosis has not been clearly identified and requires clarification. In your professional opinion, can you please clarify which diagnosis, after study, accounted for the patients presenting symptoms and was the reason chiefly responsible for the admission? Please continue to document in your progress notes and discharge summary in order to capture severity of illness and risk of mortality. Include clinical findings that support your diagnosis. MTDD
[2018-02-13 13:39] VITALS: BMI 21.5
--- NOTE | 2018-02-13 14:25 | PN ---
PROGRESS NOTE DATE OF SERVICE: 02/13/2018. REASON FOR FOLLOW UP: 1. Leukocytosis, underlying drug affect. 2. Diarrhea. INTERVAL HISTORY: The patient is currently afebrile. She is feeling better. Breathing comfortably. Denies having any chest pain. No shortness of breath. No cough. No abdominal pain. Diarrhea has improved. EXAMINATION: Blood pressure 104/57 with a pulse of 69, temperature 98. She is 96% on room air. General description is a middle-aged female lying in bed in no distress. Respiratory system: Unlabored breathing. Clear to auscultation anteriorly. Heart: S1, S2. Regular rate and rhythm. Abdomen soft, no tenderness. LABS: Hemoglobin 10 with white count 17,000 BUN of 7, creatinine 0.57. DIAGNOSTIC IMPRESSION AND PLAN: 1. Patient with leukocytosis, more likely drug effect filgrastim. Clinically with no evidence of any infection. No need for any systemic antibiotic therapy. 2. Diarrhea, symptoms responded to Questran. May be beneficial to finish a short course of oral Questran. Continue supportive care. MMODL / IJN: [id number] /
--- NOTE | 2018-02-17 10:05 | CDI ---
Last Revision, July 2017 Documentation Clarification Form Date: 02/13/2018 1:10:00 PM From: Laney Young Admit Date: 02/06/2018 11:23:00 AM Patient Name: Angely Adan Visit Number: [id number] Discharge Date: ATTENTION: The Clinical Documentation Specialists (CDI) and [facility] Coding Staff appreciate your assistance in clarifying documentation. Please respond to the clarification below the line at the bottom and electronically sign. The CDI & [facility] Coding staff will review the response and follow-up if needed. Please note: Queries are made part of the Legal Health Record. If you have any questions, please contact the author of this message via ITS. Dr. Everardo Prajapati 02/06/18 patient presented with complaints of chest discomfort and palpitations 02/07/18 Cardiology consult: Chronic persistent atrial fibrillation, atypical for acute coronary syndrome. Troponins negative x3 02/07/18 H&P Episode of palpitation and chest pain related to acute on chronic systolic heart failure and atrial fibrillation with rapid ventricular response. Stage III renal failure. Intravascular depletion and dehydration 02/07/18 Oncology consult: Adenocarcinoma of rectum stage IIIB, Pancytopenia secondary to chemotherapy Hyponatremia/Hypokalemia secondary to dehydration, diarrhea worsened with chemotherapy 02/09 Cardiology(Dr. Varela) Likely cardiomyopathy and related to chemotherapy without any heart failure symptoms at this time. metoprolol only for now. Hold off on KURT inhibitors and angiotensions and spironolactone because her blood pressure is between 80-95 mmHg. ECHO: EF between 35-40 % Patient history/risk factors: Rectal cancer, Atrial fibrillation (on Xarelto), CVA/TIA Clinical Indications: EKG on admit had A.fib with rate of 100. Vital signs on admission 73/48 73 20 97.8 97 % Lab findings: wbc 2.6 NA+ 129, K+ 2.9, BUN 38, CR 1.58 Chest x-ray Chronic changes without acute process Other Clinical Indicators: ED evaluation on admission Chest pain, Atrial fibrillation with RVR dehydration, Hypokalemia Treatment: IV Fluids Monitor Labs Potassium/Magnesium replacement Imodium PO per orders Aldactone PO Xarelto PO Lopressor PO The patients principal diagnosis has not been clearly identified and requires clarification. In your professional opinion, can you please clarify which diagnosis, after study, accounted for the patients presenting symptoms and was the reason chiefly responsible for the admission? Acute on chronic systolic heart failure ruled in Acute on chronic systolic heart failure ruled out Other reason chiefly responsible for the admission Unable to determine Please continue to document in your progress notes and discharge summary in order to capture severity of illness and risk of mortality. Include clinical findings that support your diagnosis. MTDD
--- NOTE | 2018-02-25 10:00 | CDI ---
Last Revision, July 2017 Documentation Clarification Form Date: 02/10/2018 11:35:00 AM From: Laney Young Admit Date: 02/06/2018 11:23:00 AM Patient Name: Angely Adan Visit Number: [id number] Discharge Date: ATTENTION: The Clinical Documentation Specialists (CDI) and [facility] Coding Staff appreciate your assistance in clarifying documentation. Please respond to the clarification below the line at the bottom and electronically sign. The CDI & [facility] Coding staff will review the response and follow-up if needed. Please note: Queries are made part of the Legal Health Record. If you have any questions, please contact the author of this message via ITS. Dr. Chente Elder Protein calorie malnutrition has been documented in medical consult on 02/07/18. History/Risk Factors: Adenocarcinoma of the Rectus stage IIIB, Pancytopenia, Chronic persistent atrial fibrillation, Chronic renal failure stage III, Hypertension, Clinical Indicators: Patient has altered taste, mouth sores, ill-fitting dentures with poor appetite for past 1-3 months per nutritional evaluation. Labs: Albumin 2.9, Total Protein 4.9 Current BMI: 20.9 Protein shakes Monitor Intake and Output Insufficient energy intake: decreased intake<50 % of calorie needs, altered taste after chemo Weight Loss: Yes, 15 % involuntary weight loss in past 3 months Treatment: Marinol PO Protein shakes Monitor Intake and Output Dietary Consult: Yes Lab monitoring: In your professional opinion, can you please clarify if these findings signify one of the following conditions? Mild Protein-Calorie Malnutrition Moderate Protein-Calorie Malnutrition Severe Protein-Calorie Malnutrition Other condition, please specify Unable to determine Please continue to document in your progress notes and discharge summary in order to capture severity of illness and risk of mortality. Include clinical findings that support your diagnosis. MTDD
--- NOTE | 2018-02-25 10:02 | CDI ---
Last Revision, July 2017 Documentation Clarification Form Date: 02/13/2018 1:10:00 PM From: Laney Young Admit Date: 02/06/2018 11:23:00 AM Patient Name: Angely Adan Visit Number: [id number] Discharge Date: ATTENTION: The Clinical Documentation Specialists (CDI) and [facility] Coding Staff appreciate your assistance in clarifying documentation. Please respond to the clarification below the line at the bottom and electronically sign. The CDI & [facility] Coding staff will review the response and follow-up if needed. Please note: Queries are made part of the Legal Health Record. If you have any questions, please contact the author of this message via ITS. Dr. Everardo Prajapati 02/06/18 patient presented with complaints of chest discomfort and palpitations 02/07/18 Cardiology consult: Chronic persistent atrial fibrillation, atypical for acute coronary syndrome. Troponins negative x3 02/07/18 H&P Episode of palpitation and chest pain related to acute on chronic systolic heart failure and atrial fibrillation with rapid ventricular response. Stage III renal failure. Intravascular depletion and dehydration 02/07/18 Oncology consult: Adenocarcinoma of rectum stage IIIB, Pancytopenia secondary to chemotherapy Hyponatremia/Hypokalemia secondary to dehydration, diarrhea worsened with chemotherapy 02/09 Cardiology(Dr. Varela) Likely cardiomyopathy and related to chemotherapy without any heart failure symptoms at this time. metoprolol only for now. Hold off on KURT inhibitors and angiotensions and spironolactone because her blood pressure is between 80-95 mmHg. ECHO: EF between 35-40 % Patient history/risk factors: Rectal cancer, Atrial fibrillation (on Xarelto), CVA/TIA Clinical Indications: EKG on admit had A.fib with rate of 100. Vital signs on admission 73/48 73 20 97.8 97 % Lab findings: wbc 2.6 NA+ 129, K+ 2.9, BUN 38, CR 1.58 Chest x-ray Chronic changes without acute process Other Clinical Indicators: ED evaluation on admission Chest pain, Atrial fibrillation with RVR dehydration, Hypokalemia Treatment: IV Fluids Monitor Labs Potassium/Magnesium replacement Imodium PO per orders Aldactone PO Xarelto PO Lopressor PO The patients principal diagnosis has not been clearly identified and requires clarification. In your professional opinion, can you please clarify which diagnosis, after study, accounted for the patients presenting symptoms and was the reason chiefly responsible for the admission? Acute on chronic systolic heart failure ruled in Acute on chronic systolic heart failure ruled out Other reason chiefly responsible for the admission Unable to determine Please continue to document in your progress notes and discharge summary in order to capture severity of illness and risk of mortality. Include clinical findings that support your diagnosis. MTDD
--- NOTE | 2018-03-04 11:05 | CDI ---
Last Revision, July 2017 Documentation Clarification Form Date: 02/13/2018 1:10:00 PM From: Laney Young RN, CCDS Admit Date: 02/06/2018 11:23:00 AM Patient Name: Angely Adan Visit Number: [id number] Discharge Date: ATTENTION: The Clinical Documentation Specialists (CDI) and [facility] Coding Staff appreciate your assistance in clarifying documentation. Please respond to the clarification below the line at the bottom and electronically sign. The CDI & [facility] Coding staff will review the response and follow-up if needed. Please note: Queries are made part of the Legal Health Record. If you have any questions, please contact the author of this message via ITS. Dr. Everardo Prajapati 02/06/18 patient presented with complaints of chest discomfort and palpitations 02/07/18 Cardiology consult: Chronic persistent atrial fibrillation, atypical for acute coronary syndrome. Troponins negative x3 02/07/18 H&P (Dr. Becerril) Episode of palpitation and chest pain related to acute on chronic systolic heart failure and atrial fibrillation with rapid ventricular response. Stage III renal failure. Intravascular depletion and dehydration 02/07/18 Oncology consult: Adenocarcinoma of rectum stage IIIB, Pancytopenia secondary to chemotherapy Hyponatremia/Hypokalemia secondary to dehydration, diarrhea worsened with chemotherapy 02/09 Cardiology(Dr. Varela) Likely cardiomyopathy and related to chemotherapy without any heart failure symptoms at this time. metoprolol only for now. Hold off on KURT inhibitors and angiotensions and spironolactone because her blood pressure is between 80-95 mmHg. ECHO: EF between 35-40 % Patient history/risk factors: Rectal cancer, Atrial fibrillation (on Xarelto), CVA/TIA Clinical Indications: EKG on admit had A.fib with rate of 100. Vital signs on admission 73/48 73 20 97.8 97 % Lab findings: wbc 2.6 NA+ 129, K+ 2.9, BUN 38, CR 1.58 Chest x-ray Chronic changes without acute process Other Clinical Indicators: ED evaluation on admission Chest pain, Atrial fibrillation with RVR dehydration, Hypokalemia Treatment: IV Fluids Monitor Labs Potassium/Magnesium replacement Imodium PO per orders Aldactone PO Xarelto PO Lopressor PO The patients principal diagnosis has not been clearly identified and requires clarification. In your professional opinion, can you please clarify which diagnosis, after study, accounted for the patients presenting symptoms and was the reason chiefly responsible for the admission? Acute on chronic systolic heart failure ruled in Acute on chronic systolic heart failure ruled out Other reason chiefly responsible for the admission Unable to determine Please continue to document in your progress notes and discharge summary in order to capture severity of illness and risk of mortality. Include clinical findings that support your diagnosis. MTDD
--- NOTE | 2018-03-04 11:10 | CDI ---
Last Revision, July 2017 Documentation Clarification Form Date: 02/10/2018 11:35:00 AM From: Laney Young RN, CCDS Admit Date: 02/06/2018 11:23:00 AM Patient Name: Angely Adan Visit Number: [id number] Discharge Date: ATTENTION: The Clinical Documentation Specialists (CDI) and [facility] Coding Staff appreciate your assistance in clarifying documentation. Please respond to the clarification below the line at the bottom and electronically sign. The CDI & [facility] Coding staff will review the response and follow-up if needed. Please note: Queries are made part of the Legal Health Record. If you have any questions, please contact the author of this message via ITS. Dr. Chente Elder Protein calorie malnutrition has been documented in medical consult on 02/07/18. Treatment is patient is on Megace and Protein shakes History/Risk Factors: Adenocarcinoma of the Rectus stage IIIB, Pancytopenia, Chronic persistent atrial fibrillation, Chronic renal failure stage III, Hypertension, Clinical Indicators: Patient has altered taste, mouth sores, ill-fitting dentures with poor appetite for past 1-3 months per nutritional evaluation. Labs: Albumin 2.9, Total Protein 4.9 Current BMI: 20.9 Insufficient energy intake: decreased intake<50 % of calorie needs, altered taste after chemotherapy Weight Loss: Yes, 15 % involuntary weight loss in past 3 months Treatment: Marinol PO Monitor Intake and Output Dietary Consult: Yes Lab monitoring: In your professional opinion, can you please clarify if these findings signify one of the following conditions? Mild Protein-Calorie Malnutrition Moderate Protein-Calorie Malnutrition Severe Protein-Calorie Malnutrition Other condition, please specify Unable to determine Please continue to document in your progress notes and discharge summary in order to capture severity of illness and risk of mortality. Include clinical findings that support your diagnosis. MTDD
--- NOTE | 2018-03-12 12:00 | DS ---
DISCHARGE SUMMARY DATE OF ADMISSION: 02/06/2018 DATE OF DISCHARGE: 02/13/2018 DISCHARGE MEDICATIONS: 1. Lipitor 40 mg daily. 2. Xarelto 20 mg daily. 3. Lopressor 12.5 mg b.i.d. 4. Alprazolam 0.5 mg daily. 5. Pepcid 20 mg daily. 6. Loperamide 2 mg t.i.d. 7. Spironolactone 12.5 mg daily. CONDITION: Stable. PROGNOSIS: Guarded. DISCHARGE DIAGNOSES: 1. Gastroenteritis. 2. Severe dehydration. 3. Hypotension secondary to dehydration. 4. Pancytopenia due to antineoplastic chemotherapy. 5. Rectal adenocarcinoma. 6. Chronic persistent atrial fibrillation. 7. Atypical chest pain, myocardial infarction ruled out. 8. Acute on chronic systolic and diastolic heart failure. The patient is stabilized by Cardiology and Pulmonary and Infectious Disease. She will follow up as outpatient with Dr. Prajapati. Prognosis is fair to poor depending on chemotherapy reactions. MMODL / IJN: [id number] /
== END 2018-02-13 14:25 | disposition home or self-care (01) | DRG 308 ==
LOC: EC 08:50 → 6SEL 11:23 → 5ONC 02-11 20:44
PROVIDERS: ADMIT Family Medicine; ATTEND Family Medicine
DX: I48.2 Chronic atrial fibrillation (principal); D61.810 Antineoplastic chemotherapy induced pancytopenia; I50.43 Acute on chronic combined systolic (congestive) and diastolic (congestive) heart failure; I13.0 Hypertensive heart and chronic kidney disease with heart failure and stage 1 through stage 4 chronic kidney disease, or unspecified chronic kidney disease; C19 Malignant neoplasm of rectosigmoid junction; E87.1 Hypo-osmolality and hyponatremia; K52.1 Toxic gastroenteritis and colitis; E46 Unspecified protein-calorie malnutrition; D72.829 Elevated white blood cell count, unspecified; E78.5 Hyperlipidemia, unspecified; E83.42 Hypomagnesemia; E86.0 Dehydration; E87.6 Hypokalemia; F12.90 Cannabis use, unspecified, uncomplicated; I42.7 Cardiomyopathy due to drug and external agent; T45.1X5A Adverse effect of antineoplastic and immunosuppressive drugs, initial encounter; J44.9 Chronic obstructive pulmonary disease, unspecified; K21.9 Gastro-esophageal reflux disease without esophagitis; N18.3 Chronic kidney disease, stage 3 (moderate); Z79.01 Long term (current) use of anticoagulants; Z79.899 Other long term (current) drug therapy; Z80.8 Family history of malignant neoplasm of other organs or systems; Z86.73 Personal history of transient ischemic attack (TIA), and cerebral infarction without residual deficits; Z87.891 Personal history of nicotine dependence; Z92.3 Personal history of irradiation; Z93.3 Colostomy status; Z95.0 Presence of cardiac pacemaker; Z90.49 Acquired absence of other specified parts of digestive tract; R07.89 Other chest pain; Z68.20 Body mass index [BMI] 20.0-20.9, adult
CPT/HCPCS: 36415; 71045; 71046; 80048; 80051; 80053; 80061; 82550; 82553; 83735; 84100; 84132; 84484; 85025; 85610; 85730; 87045; 87046; 87086; 87324; 93005; 93306; 94760; 96361; 96365; 96366; 99285

== ENCOUNTER 2018-06-05 10:43 | Day surgery (SDC) | payer BC ==
[2018-05-30 09:08] VITALS: BMI 22.6
[~2018-06-05 10:43] MED LIST changes: -DEXAMETHASONE SOD PHOSPHATE 10 MG/ML 1 ML VIAL IV ONE; -HEPARIN SODIUM,PORCINE 5,000 UNIT/ML 1 ML VIAL SQ ONE; -HYDROmorphone 0.5 MG/0.5 ML SYRINGE IVP PRN; -ONDANSETRON 4 MG/2 ML VIAL IVP ONE; -Pre Op ABX Message 1 EACH MISC MISCELLANE ONE; +SODIUM CHLORIDE 0.9% 1,000 ML IV SCH
[2018-06-05 12:23] VITALS: BP 96/53; PULSE 50; RESP 20; TEMP 98
[2018-06-05] MEDS ORDERED: IOPAMIDOL-250 50ML BTL IV ONE (13:28)
--- NOTE | 2018-06-05 18:23 | P.PCN ---
Preoperative Diagnosis: Diagnosis Symptomatic atrial fibrillation with RVR intolerant of medications Permanent pacemaker, dual-chamber in situ Cinefluoroscopy of the leads was performed Atrial lead in right atrial appendage RV lead in right ventricle probably septum Left upper extremity venogram In cc IV dye injected and left upper extremity vein. Mild stenosis of the left subclavian/left axillary junction This should easily except and LV lead or His bundle lead Plan Upgrade to biventricular pacemaker/physiologic septal pacing followed by AV junction modification for management of symptomatic A. fib with RVR Anesthesia: none Disposition: same day
== END 2018-06-05 14:40 | disposition home or self-care (01) ==
LOC: CATHEP 10:43
PROVIDERS: ATTEND Internal Medicine Clinical Cardiac Electrophysiology
DX: I48.1 Persistent atrial fibrillation (principal); Z95.0 Presence of cardiac pacemaker; E78.5 Hyperlipidemia, unspecified; F17.210 Nicotine dependence, cigarettes, uncomplicated; Z79.01 Long term (current) use of anticoagulants; Z79.899 Other long term (current) drug therapy
CPT/HCPCS: 36005; 75820; 76000; Q9966

== ENCOUNTER → 2018-06-18 | Outpatient (CLI) | payer BC ==
[2018-06-18 11:01] LABS: HCT 40.9 % (34.0-46.0); HGB 13.4 gm/dL (11.4-16.0); MCH 32.1 pg (25.0-35.0); MCHC 32.7 g/dL (31.0-37.0); MCV 98.2 fL (80.0-100.0); Mean Platelet Volume 7.4; Platelet Count 206 k/uL (150-450); RBC 4.17 m/uL (3.80-5.40); RDW 13.8 % (11.5-15.5); WBC 8.2 k/uL (3.8-10.6)
[2018-06-18 11:12] LABS: Anion Gap 8 mmol/L; Blood Urea Nitrogen 13 mg/dL (7-17); Carbon Dioxide 24 mmol/L (22-30); Chloride 108 mmol/L (98-107); Glucose 113 mg/dL (74-99); Potassium 4.9 mmol/L (3.5-5.1); Sodium 140 mmol/L (137-145)
== END | disposition home or self-care (01) ==
LOC: LABPAT 10:28
PROVIDERS: ATTEND Internal Medicine Clinical Cardiac Electrophysiology
DX: Z01.812 Encounter for preprocedural laboratory examination (principal); I48.1 Persistent atrial fibrillation; Z95.0 Presence of cardiac pacemaker
CPT/HCPCS: 36415; 80051; 82565; 82947; 84520; 85027

== ENCOUNTER 2018-06-23 12:47 | Day surgery (SDC) | payer BC ==
[~2018-06-23 12:47] MED LIST changes: +HYDROmorphone 0.5 MG/0.5 ML SYRINGE IVP PRN; +MIDAZOLAM 2 MG/2 ML VIAL IV PRN; +ceFAZolin 1,000 MG in SODIUM CHLORIDE 0.9% IRRIGATIO 250 ML IRRIGATION ONE; +ceFAZolin IN SWFI 2 GM/20 ML SYRINGE IVP ONE
[2018-06-23] MEDS ORDERED: SODIUM CHLORIDE 0.9% 500 ML IV ONE (13:36)
[2018-06-23 15:23] VITALS: RESP 16
[2018-06-23] MEDS ORDERED: LIDOCAINE 1% INJ 10MG/ML (20 ML MDV) ONE ×3 (16:49→17:05)
[2018-06-23] MEDS ORDERED: KETAMINE 10 MG/ML 20 ML VIAL ONE (17:05)
[2018-06-23] MEDS ORDERED: MIDAZOLAM 2 MG/2 ML VIAL ONE (17:05)
[2018-06-23] MEDS ORDERED: PHENYLEPHRINE-0.9% NACL SYG 1 MG/10 ML SYRINGE ONE (17:05)
[2018-06-23] MEDS ORDERED: PROPOFOL 10 MG/ML 20 ML VIAL IV ONE (17:05)
[2018-06-23] MEDS ORDERED: fentaNYL (PF) 50 MCG/ML 2 ML AMP ONE (17:05)
[2018-06-23] MEDS ORDERED: RX INFO: IV CONTRAST WAS GIVEN 1 EACH MISC MISCELLANE PRN (17:39)
[2018-06-23] MEDS ORDERED: LIDOCAINE 1% INJ 10MG/ML (20 ML MDV) SQ ONE ×2 (17:56→18:04)
[2018-06-23] MEDS ORDERED: IOPAMIDOL-250 50ML BTL IV ONE ×2 (18:25)
[2018-06-23] MEDS ORDERED: ACETAMINOPHEN TAB 325 MG TAB PO PRN (19:14)
[2018-06-23] MEDS ORDERED: ASPIRIN 81 MG PO PRN (19:15)
[2018-06-23] MEDS: LACTATED RINGERS 1,000 ML IV SCH (19:42)
[2018-06-23] MEDS ORDERED: ACETAMINOPHEN IV (For NPO) 1,000 MG in EMPTY BAG 1 BAG IVPB ONE (20:00)
[2018-06-23] MEDS: ONDANSETRON 4 MG/2 ML VIAL IVP PRN (20:37)
[2018-06-23] MEDS: HYDROcodone/APAP 5-325MG 1 EACH TAB PO PRN (20:39)
[2018-06-23] MEDS: METOPROLOL TARTRATE 12.5 MG TAB PO SCH (20:40)
--- NOTE | 2018-06-23 20:48 | PCN ---
PROCEDURE NOTE This is a 62-year-old female with a dual-chamber pacemaker for sick sinus syndrome and bradycardia and now in persistent atrial fibrillation which has been difficult to rate control. An AV node ablation was planned, but prior to that, since she would be 100% paced because of complete heart block following AV node ablation, LV lead was placed for biventricular pacing following AV node ablation. Patient was brought to the EP lab in a fasting state. Written informed consent was obtained prior to the procedure. The left shoulder area was prepped and draped as per protocol. Lidocaine 1% was used for local anesthesia. A 4 cm incision was made directly over the generator and carried down to the level of the generator. The generator was explanted. A new generator was later implanted. Partial capsulectomy was performed. The subfascial pocket was extended caudally. The left axillary vein was accessed and the wire was placed in the venous circulation. Following that a sheath was placed in the subclavian vein. Via this, coronary sinus catheter was placed and the coronary sinus was accessed. Coronary sinus catheter was placed in the CS. Venogram was performed. The patient had a very large posterolateral vein and a middle cardiac vein. The other veins were very diminutive and not suitable for LV lead placement. The posterolateral vein was sub-selected and the sheath was placed within the vein. Lead was delivered and the lead was positioned over a wire in a very lateral position with the LV lead pole 1 in the 3 o'clock position in the COMORAN view. Diaphragmatic stimulation was noted at high output with the distal pole, but not with the other poles. No diaphragmatic stimulation was noted at 5 volts. Excellent thresholds were noted in all poles. The threshold in the distal pole was 2 V at 0.5 milliseconds. The chronic RA lead was interrogated. The patient was in atrial fibrillation. Atrial pacing impedance 590 ohms. The RV sensing was 12 mV. Pacing impedance 530 ohms, pacing threshold 0.75 V at 0.5 milliseconds. The sheath was removed. The LV lead was secured to the underlying pectoralis muscle and the new generator was implanted. This was a [employer] model #[id number], serial #[id number]. The lead and the generator were then placed in the subfascial pocket. The wound was closed in 3 layers and dressed per protocol. RESULTS: Successful upgrade to a biventricular pacemaker prior to AV node ablation. PLAN: AV node ablation in about 6 weeks once lead parameter stabilities are conformed. Also, metoprolol is being increased to 12.5 mg 3 times a day for better rate control. The device was programmed to VVI 50 beats per minute. Final programming will be performed at the time of AV node ablation. GISSELL / XOCHITL: [id number] /
[2018-06-23 20:53] VITALS: BMI 22.6
[2018-06-23] MEDS ORDERED: ATORVASTATIN 40 MG TAB PO SCH (21:00)
[2018-06-24] MEDS: HYDROcodone/APAP 5-325MG 1 EACH TAB PO PRN ×3 (02:58→16:56)
[2018-06-24] MEDS: LACTATED RINGERS 1,000 ML IV SCH (03:47)
[2018-06-24] MEDS: METOPROLOL TARTRATE 12.5 MG TAB PO SCH ×2 (07:18→16:42)
--- NOTE | 2018-06-24 08:09 | XR ---
EXAMINATION TYPE: XR chest 2V DATE OF EXAM: 06/24/2018 COMPARISON: Prior chest x-ray 02/11/2018 HISTORY: Lead placement check TECHNIQUE: Frontal and lateral views of the chest are obtained. FINDINGS: Generator is in left pectoral region. There are leads in the right atrium, right ventricle , coronary sinus region. There is no evident pneumothorax or pleural effusion. Cardiac mediastinal si lhouette, pulmonary vascularity and koki are stable. There is a Port-A-Cath in the right pectoral reg ion, distal tip the catheter is overlying the superior vena cava. Prominent lung lines suggest underl mely COPD. IMPRESSION: No evident complication status post lead placement
[2018-06-24] MEDS ORDERED: ceFAZolin IN SWFI 2 GM/20 ML SYRINGE IVP STA (08:26)
[2018-06-24] MEDS: IOPAMIDOL-300 CONTRAST 30 ML VIAL (ORAL USE) PO PRN ×2 (08:30→09:30)
--- NOTE | 2018-06-24 08:52 | P.DS ---
Providers Attending physician: Jony Varela Primary care physician: [facility] Course: Patient is doing well. No hematoma no swelling minimal pain and tenderness over the pacemaker site Heart sounds are normal normal S1 normal S2 Breath sounds are clear no rhonchi no crackles Abdomen soft nontender Blood pressure 97 60 mmHg afebrile normal respirations Impression A. fib with RVR symptomatic difficult rate control, low blood pressure on low- dose beta blockers Status post upgrade to a biventricular pacemaker yesterday prior to AV node ablation Suggest IV antibiotics today and go home thereafter. Device interrogation is within normal limits LV pacing threshold is 1.75 V at 0.5 ms (M3-M2) Will schedule her AV node ablation in the future Follow-up with device clinic in one week and follow Dr. Kennedy as before Patient Condition at Discharge: Stable Plan - Discharge Summary Discharge Rx Participant: No New Discharge Prescriptions: No Action RX: Atorvastatin [Lipitor] 40 mg PO HS RX: Rivaroxaban [Xarelto] 20 mg PO W/SUPPER RX: Metoprolol Tartrate [Lopressor] 12.5 mg PO BID RX: Aspirin 81 mg PO DAILY PRN PRN Reason: Mild To Moderate Pain Discharge Medication List RX: Atorvastatin [Lipitor] 40 mg PO HS 08/06/17 [History] RX: Rivaroxaban [Xarelto] 20 mg PO W/SUPPER 10/28/17 [History] RX: Metoprolol Tartrate [Lopressor] 12.5 mg PO BID 12/17/17 [History] RX: Aspirin 81 mg PO DAILY PRN 06/23/18 [History]
--- NOTE | 2018-06-24 10:51 | CT ---
EXAMINATION TYPE: CT ChestAbdPelvis w con DATE OF EXAM: 06/24/2018 COMPARISON: March 29, 2017 HISTORY: Hx rectal ca. F/u for mets. CT DLP: 729.7 mGycm CONTRAST: CT scan of the chest, abdomen and pelvis is performed with Oral Contrast and with IV Contrast, patien t injected with 100 mL of Isovue 300. CT Chest: LUNGS: 4.3 mm nodular density left lower lobe image 47 adjacent to an area of parenchymal scar atelec tasis. Linear scarring right lung base. No additional pulmonary nodules identified. Follow-up is advi sed. No evidence for infiltrate. MEDIASTINUM: Thoracic aorta is of normal caliber. The heart is not enlarged. No evidence for media stinal mass or adenopathy. HILAR STRUCTURES: No evidence for mass. No hilar adenopathy is appreciated. OTHER: No significant abnormality. CONTRAST CT ABDOMEN AND PELVIS FINDINGS: LIVER/GB: Cholecystectomy clips are in place. No space occupying hepatic lesion. Biliary tree is of n ormal caliber. PANCREAS: No inflammation. No distinct mass. SPLEEN: No splenic enlargement. No lesion seen. ADRENALS: No nodule. No thickening. KIDNEYS/BLADDER: No hydronephrosis. No nephrolithiasis. No distinct renal mass. BOWEL: Interval right lower quadrant ostomy noted. Rectal resection identified. Presacral edema likel y related to surgical/therapeutic change. No evidence for recurrent or residual mass at this time. No pelvic adenopathy. Small large bowel are of normal caliber. No inflammatory process appreciated. GENITAL ORGANS: No gross abnormality. LYMPH NODES: No greater than 1cm abdominal or pelvic lymph nodes are appreciated. AORTA: No significant abnormality. OSSEOUS STRUCTURES: No significant abnormality is seen. OTHER: No significant additional abnormality is seen. IMPRESSION: 1. Postsurgical change of rectal resection and interval right lower quadrant ostomy. Presacral edema likely related to surgical/therapeutic change. No evidence for recurrent or residual mass. 2. No evidence for metastatic disease to the abdomen or pelvis. 3. Nodular density left lung base may simply reflect an area of atelectasis or scarring. Follow-up in 3 months is advised.
[2018-06-24 11:26] VITALS: BP 95/67; PULSE 64; TEMP 98.1
[2018-06-24] MEDS ORDERED: ceFAZolin IN SWFI 2 GM/20 ML SYRINGE IVP ONE ×2 (12:00→17:00)
[2018-06-24] MEDS: ONDANSETRON 4 MG/2 ML VIAL IVP PRN (12:55)
[2018-06-24] MEDS ORDERED: RIVAROXABAN 20 MG TAB PO SCH (17:30)
== END 2018-06-24 17:30 | disposition home or self-care (01) ==
LOC: CATHEP 12:47 → 1SOBS 19:14 → CATHEP 06-24 17:30
PROVIDERS: ATTEND Internal Medicine Clinical Cardiac Electrophysiology
DX: I48.1 Persistent atrial fibrillation (principal); Z45.018 Encounter for adjustment and management of other part of cardiac pacemaker; I44.2 Atrioventricular block, complete; I49.5 Sick sinus syndrome; E78.2 Mixed hyperlipidemia; Z92.21 Personal history of antineoplastic chemotherapy; J98.4 Other disorders of lung; Z72.0 Tobacco use; Z79.899 Other long term (current) drug therapy; Z79.01 Long term (current) use of anticoagulants
CPT/HCPCS: 33225; 33229; 71046; 71260; 74177; C1769 ×3; C1892; C1730; C1900; C2621; J2250; J2405 ×2; J2001; J3010; J2370; J2704; J0690 ×2; Q9966; Q9967; 33214

== ENCOUNTER → 2018-07-28 | Outpatient (CLI) | payer BC ==
[2018-07-28 14:30] LABS: HCT 43.5 % (34.0-46.0); HGB 14.9 gm/dL (11.4-16.0); MCHC 34.3 g/dL (31.0-37.0); MCV 96.3 fL (80.0-100.0); Mean Platelet Volume 7.2; Platelet Count 249 k/uL (150-450); RBC 4.51 m/uL (3.80-5.40); RDW 13.1 % (11.5-15.5); WBC 8.7 k/uL (3.8-10.6)
[2018-07-28 14:43] LABS: Anion Gap 9 mmol/L; Blood Urea Nitrogen 13 mg/dL (7-17); Carbon Dioxide 24 mmol/L (22-30); Chloride 107 mmol/L (98-107); Glucose 106 mg/dL (74-99); Potassium 5.1 mmol/L (3.5-5.1); Sodium 140 mmol/L (137-145)
== END | disposition home or self-care (01) ==
LOC: LABPAT 13:30
PROVIDERS: ATTEND Internal Medicine Clinical Cardiac Electrophysiology
DX: Z01.812 Encounter for preprocedural laboratory examination (principal); I48.1 Persistent atrial fibrillation; Z95.0 Presence of cardiac pacemaker
CPT/HCPCS: 36415; 80051; 82565; 82947; 84520; 85027

== ENCOUNTER 2018-08-11 10:58 | Day surgery (SDC) | payer BC ==
[2018-08-06 10:58] VITALS: BMI 23.1
[~2018-08-11 10:58] MED LIST changes: -HYDROmorphone 0.5 MG/0.5 ML SYRINGE IVP PRN; +HYDROmorphone 1 MG/ML 1 ML SYRINGE IVP PRN; +LACTATED RINGERS 1,000 ML IV SCH; +MIDAZOLAM (PF) 2 MG/2 ML VIAL IV PRN; -MIDAZOLAM 2 MG/2 ML VIAL IV PRN; -ceFAZolin 1,000 MG in SODIUM CHLORIDE 0.9% IRRIGATIO 250 ML IRRIGATION ONE; -ceFAZolin IN SWFI 2 GM/20 ML SYRINGE IVP ONE
[2018-08-11] MEDS ORDERED: ceFAZolin IN SWFI 2 GM/20 ML SYRINGE IVP ONE ×2 (11:21→16:20)
[2018-08-11] MEDS ORDERED: ATROPINE SULFATE 0.4 MG/ML 1 ML VIAL ONE (16:16)
[2018-08-11] MEDS ORDERED: MIDAZOLAM 2 MG/2 ML VIAL ONE (16:16)
[2018-08-11] MEDS ORDERED: fentaNYL (PF) 50 MCG/ML 2 ML AMP ONE (16:16)
[2018-08-11] MEDS ORDERED: LIDOCAINE 1% INJ 10MG/ML (20 ML MDV) SQ ONE (16:41)
[2018-08-11] MEDS ORDERED: IV FLUID CONTINUATION 500 ML IV ONE (16:42)
[2018-08-11] MEDS ORDERED: HEPARIN SODIUM (1,000 UNIT/ML) 1,000 UNIT in SODIUM CHLORIDE 0.9% 1,000 ML IRRIGATION ONE (17:04)
[2018-08-11] MEDS ORDERED: HYDROcodone/APAP 5-325MG 1 EACH TAB PO PRN (17:10)
[2018-08-11] MEDS ORDERED: ACETAMINOPHEN TAB 325 MG TAB PO PRN (17:10)
--- NOTE | 2018-08-11 17:10 | P.PCN ---
Preoperative Diagnosis: Diagnosis A. fib with RVR drug refractory, symptomatic Biventricular pacemaker implanted Procedure: Device interrogation with reprogramming prior to the procedure AV Node Ablation/modification. Device interrogation with reprogramming postprocedure Patient was brought to the EP lab in a fasting state. Written, informed consent was obtained prior to the procedure. Access was obtained, sheath placed in right femoral vein. 1. Preprocedure device interrogation and reprogramming Device interrogation with reprogramming performed. Rate responsiveness was turned off and the pacing rate was reprogrammed to a backup mode prior to ablation. Tachycardia detections turned off. Lead impedance is documented, sensing and pacing thresholds performed prior to the procedure Backup pacing, VVI 40 bpm 3. AV node ablation A Mapping/Ablation catheter was placed and right-sided AV node radiofrequency ablation/modification was performed. Complete heart block was achieved with occasional junctional escape rhythm above 40 bpm 4. Device programming postprocedure Post ablation, device reprogramming was performed. Base Pacing rate was programmed to 90 bpm. Patient's device was reprogrammed and the interrogated. RF mode turned on Vascular sheaths were removed at the end of the procedure, hemostasis was assured, the patient was then transferred to recovery room/telemetry in stable condition. RV pacing threshold 0.75 V at 0.5 ms, pacing impedance 490 ohms LV pacing threshold 1.625 V at 1 ms impedance 690 ohms VVIR 90-120 bpm LV offset 30 ms Conclusions: Successful ablation of the AV node. Plan: Pacing at 90 bpm for at least 3 weeks. Telemetry monitoring for 24-48 hours. Continue anticoagulation. Patient tolerated the procedure well without any acute complications Anesthesia: MAC Condition: stable Disposition: observation
[2018-08-11] MEDS ORDERED: ACETAMINOPHEN IV (For NPO) 1,000 MG in EMPTY BAG 1 BAG IVPB ONE (18:00)
[2018-08-12 08:59] VITALS: BP 124/78; PULSE 89; RESP 17; TEMP 98.1
--- NOTE | 2018-08-12 12:51 | P.DS ---
Providers Attending physician: Jony Varela Primary care physician: [facility] Course: Patient is doing well. She is sitting up comfortably in bed. Groin has healed well. There is no swelling no tenderness to pain She denies any chest discomfort dizziness lightheadedness or palpitations. Impression Defibrillation, refractory to therapy Sick sinus syndrome status post permanent pacemaker implantation, biventricular pacemaker Yesterday she underwent AV node ablation Device was reprogrammed to LV offset of -34 by ventricle pacing Suggest Stop digoxin stop metoprolol Bi V pacing rate 90 bpm for 3 weeks and then reprogrammed to 60-1:30 bpm thereafter Continue anticoagulation dc home today f/u in 1 week Patient Condition at Discharge: Stable Plan - Discharge Summary Discharge Rx Participant: Yes New Discharge Prescriptions: Discontinued Metoprolol Tartrate [Lopressor] 12.5 mg PO BID Digoxin [Lanoxin] 125 mcg PO DAILY No Action Atorvastatin [Lipitor] 40 mg PO HS Rivaroxaban [Xarelto] 20 mg PO W/SUPPER Aspirin 81 mg PO DAILY PRN PRN Reason: Mild To Moderate Pain Discharge Medication List Atorvastatin [Lipitor] 40 mg PO HS 08/06/17 [History] Rivaroxaban [Xarelto] 20 mg PO W/SUPPER 10/28/17 [History] Aspirin 81 mg PO DAILY PRN 06/23/18 [History] Follow up Appointment(s)/Referral(s): [facility] [Provider Group] - 09/03/18 2:00 pm ([facility]) Ashley Kennedy MD [STAFF PHYSICIAN] - 08/15/18 10:00 am (Saturday Pacemaker clinic follow-up for pacemaker reprogramming in 3 weeks) Patient Instructions/Handouts: Cardiac Ablation (DC) Activity/Diet/Wound Care/Special Instructions: Post EP study - Ablation instructions 1. Keep access sites dry for 2 days. 2. No heavy lifting or straining for 2 days. 3. Avoid bending the hips repeatedly for 2 days. 4. You may go up and down stairs slowly Call if the following is noted 1. Bleeding, increasing swelling or pain at the access sites. 2. Increasing chest discomfort, especially upon taking a deep breath. 3. Increasing shortness of breath, at rest or with exertion. 4. Undue cough / phlegm 5. Difficulty or pain while swallowing. 6. Pain or change in color in the extremities. 7. Fever, chills, rigors. 8. Increasing headache or neurologic symptoms. 9. Dizziness, fainting, palpitations Discontinue Digoxin. Discontinue Metoprolol Follow up with pacemaker clinic in 3 weeks. Discharge Disposition: HOME SELF-CARE
== END 2018-08-12 12:46 | disposition home or self-care (01) ==
LOC: CATHEP 10:58 → 3SCARD 17:10 → CATHEP 08-12 12:46
PROVIDERS: ATTEND Internal Medicine Clinical Cardiac Electrophysiology
DX: I48.1 Persistent atrial fibrillation (principal); Z45.018 Encounter for adjustment and management of other part of cardiac pacemaker; I49.5 Sick sinus syndrome; I44.2 Atrioventricular block, complete; E78.2 Mixed hyperlipidemia; F41.9 Anxiety disorder, unspecified; Z79.01 Long term (current) use of anticoagulants; Z79.899 Other long term (current) drug therapy; Z72.0 Tobacco use; Z85.038 Personal history of other malignant neoplasm of large intestine; Z85.048 Personal history of other malignant neoplasm of rectum, rectosigmoid junction, and anus; Z90.49 Acquired absence of other specified parts of digestive tract
CPT/HCPCS: 93650; C1894; C1769; C1732; J2250; J0461; J2001; J3010; J1644; J0131; J0690

== ENCOUNTER → 2018-09-30 | Outpatient (CLI) | payer BC ==
[2018-09-30 14:50] LABS: Blood Urea Nitrogen 13 mg/dL (7-17)
--- NOTE | 2018-09-30 15:48 | CT ---
EXAMINATION TYPE: CT ChestAbdPelvis w con DATE OF EXAM: 09/30/2018 COMPARISON: 06/24/2018 HISTORY: Rectal CA CT DLP: 1184 mGycm CONTRAST: CT scan of the chest, abdomen and pelvis is performed with Oral Contrast and with IV Contrast, patien t injected with 100 mL of Isovue 300. CT Chest: LUNGS: The lungs are clear and free of infiltrate or atelectasis. No pulmonary nodule or mass is det ected. No pleural effusion or CT evidence of interstitial lung disease. MEDIASTINUM: Thoracic aorta is of normal caliber. The heart is not enlarged. No evidence for media stinal mass or adenopathy. HILAR STRUCTURES: No evidence for mass. No hilar adenopathy is appreciated. OTHER: No significant abnormality. CONTRAST CT ABDOMEN AND PELVIS FINDINGS: LIVER/GB: Cholecystectomy clips are in place. No space occupying hepatic lesion. Biliary tree is of n ormal caliber. PANCREAS: No inflammation. No distinct mass. SPLEEN: No splenic enlargement. No lesion seen. ADRENALS: No nodule. No thickening. KIDNEYS/BLADDER: No hydronephrosis. No nephrolithiasis. No disctinct renal mass. BOWEL: Reversal of right lower quadrant ostomy noted. Postoperative changes of rectal resection noted . Presacral edema likely posttherapeutic/postsurgical in nature and remains stable. No evidence for r ecurrent or residual mass at this time. GENITAL ORGANS: No gross abnormality. LYMPH NODES: No greater than 1cm abdominal or pelvic lymph nodes are appreciated. AORTA: No significant abnormality. OSSEOUS STRUCTURES: No significant abnormality is seen. OTHER: No significant additional abnormality is seen. IMPRESSION: 1. Reversal right lower quadrant ostomy noted. 2. Stable postoperative changes of rectal resection. No evidence for recurrent or residual mass at th is time. 3. No evidence for metastatic disease.
== END | disposition home or self-care (01) ==
LOC: RADPROMAIN 13:20
PROVIDERS: ATTEND Internal Medicine Hematology & Oncology
DX: C20 Malignant neoplasm of rectum (principal); Z98.890 Other specified postprocedural states
CPT/HCPCS: 82565; 84520; 71260; 74177; 36415; Q9967

== ENCOUNTER 2018-10-21 09:17 | Day surgery (SDC) | payer BC ==
[2018-10-16 11:23] VITALS: BMI 18.3
[~2018-10-21 09:17] MED LIST changes: +DEXAMETHASONE SOD PHOSPHATE 10 MG/ML 1 ML VIAL IV ONE; +HEPARIN SODIUM,PORCINE 5,000 UNIT/ML 1 ML VIAL SQ ONE; +HYDROmorphone 0.5 MG/0.5 ML SYRINGE IVP PRN; -HYDROmorphone 1 MG/ML 1 ML SYRINGE IVP PRN; +ONDANSETRON 4 MG/2 ML VIAL IVP ONE; +SCOPOLAMINE 1.5MG/72HR PATCH TRANSDERM ONE; -SODIUM CHLORIDE 0.9% 1,000 ML IV SCH; +ceFAZolin IN SWFI 2 GM/20 ML SYRINGE IVP ONE
[2018-10-21 09:52] VITALS: PULSE 60
--- NOTE | 2018-10-21 10:51 | P.GSHP ---
History of Present Illness H&P Date: 10/21/18 Chief Complaint: History of rectal cancer This is a 63-year-old female who has a previous history of rectal cancer. Patient resents today for removal of Port-A-Cath. Past Medical History Past Medical History: Atrial Fibrillation, Cancer, CVA/TIA Additional Past Medical History / Comment(s): 2017 rectal CA/had oral chemo/ radiation/surgery;last chemo tx 04/16/18. 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 ablation for afib 08/11/18 Past Anesthesia/Blood Transfusion Reactions: No Reported Reaction Additional Past Anesthesia/Blood Transfusion Reaction / Comment(s): No hx blood transfusion. Type of Cardiac Device: Permanent Pacemaker Device Placement Date:: 08/21/17 Smoking Status: Former smoker - Past Family History Mother Family Medical History: Cancer, Deep Vein Thrombosis (DVT) Additional Family Medical History / Comment(s): skin cancer Father Family Medical History: No Reported History Additional Family Medical History / Comment(s): Father was healthy and of "old age" at the age of 88yrs. Medications and Allergies Home Medications Medication Instructions Recorded Confirmed Type Atorvastatin [Lipitor] 40 mg PO HS 08/06/17 10/21/18 History Rivaroxaban [Xarelto] 20 mg PO W/SUPPER 10/28/17 10/21/18 History Allergies Allergy/AdvReac Type Severity Reaction Status Date / Time No Known Allergies Allergy Verified 10/21/18 09:35 Surgical - Exam Vital Signs Temp Pulse Resp BP Pulse Ox 96.8 F L 60 16 111/59 97 10/21/18 09:50 10/21/18 09:50 10/21/18 09:50 10/21/18 09:50 10/21/18 09:50 - General well developed, well nourished, no distress - Eyes PERRL - ENT normal pinna - Neck no masses - Respiratory normal expansion - Cardiovascular Rhythm: regular - Abdomen Abdomen: soft, non tender Assessment and Plan Assessment: History of rectal cancer. We'll perform removal of Port-A-Cath.
[2018-10-21] MEDS ORDERED: PROPOFOL 10 MG/ML 20 ML VIAL IV ONE (11:13)
[2018-10-21] MEDS ORDERED: LIDOCAINE 1% INJ 10MG/ML (20 ML MDV) ONE (11:13)
[2018-10-21] MEDS ORDERED: MIDAZOLAM 2 MG/2 ML VIAL ONE (11:13)
[2018-10-21] MEDS ORDERED: fentaNYL (PF) 50 MCG/ML 2 ML AMP ONE (11:13)
[2018-10-21] MEDS ORDERED: GLYCOPYRROLATE 0.2 MG/ML 2 ML VIAL ONE (11:13)
[2018-10-21] MEDS ORDERED: KETAMINE 10 MG/ML 20 ML VIAL ONE (11:13)
[2018-10-21] MEDS ORDERED: BUPIVACAINE-EPI 0.5%-1:200,000 10 ML VIAL SQ ONE ×2 (11:26)
--- NOTE | 2018-10-21 11:46 | P.OP ---
Date of Procedure: 10/21/18 Preoperative Diagnosis: History of rectal cancer Postoperative Diagnosis: History of rectal cancer Procedure(s) Performed: Removal of Port-A-Cath Anesthesia: MAC Surgeon: Ezequiel Martinez Estimated Blood Loss (ml): 5 Pathology: none sent Condition: stable Disposition: PACU Description of Procedure: The patient's placed on the endoscopy table in the lateral position. She received IV sedation. Her chest wall was prepped and draped in usual sterile fashion. The skin was anesthetized 1% local Xylocaine. Using a 15 blade the skin was incised. Using blunt and sharp dissection and left cautery the port was dissected free from subcutaneous tissues. The Bovie was used for hemostasis. The skin was closed interrupted 3-0 Monocryl suture. Dermabond dressings was applied. Patient top procedure well and was sent to recovery room stable condition.
[2018-10-21 11:54] VITALS: TEMP 97
[2018-10-21 12:02] VITALS: RESP 16
[2018-10-21 12:50] VITALS: BP 102/66
== END 2018-10-21 12:56 | disposition home or self-care (01) ==
LOC: OR 09:17
PROVIDERS: ATTEND Surgery
DX: C20 Malignant neoplasm of rectum (principal); Z45.2 Encounter for adjustment and management of vascular access device; Z90.49 Acquired absence of other specified parts of digestive tract; Z92.21 Personal history of antineoplastic chemotherapy; Z92.3 Personal history of irradiation; Z95.0 Presence of cardiac pacemaker; I48.91 Unspecified atrial fibrillation; Z79.01 Long term (current) use of anticoagulants; Z87.891 Personal history of nicotine dependence; Z86.73 Personal history of transient ischemic attack (TIA), and cerebral infarction without residual deficits; Z79.899 Other long term (current) drug therapy
CPT/HCPCS: 36590; J2250; J1644; J1100; J2405; J2001; J3010; J2704; J0690

== ENCOUNTER → 2019-01-14 | Outpatient (CLI) | payer BC ==
--- NOTE | 2019-01-14 15:44 | CT ---
EXAMINATION TYPE: CT ChestAbdPelvis w con DATE OF EXAM: 01/14/2019 COMPARISON: CT of the chest, abdomen, and pelvis dated 09/30/2018 HISTORY: Carcinoma of rectum. CT DLP: 681 mGycm. Automated Exposure Control for Dose Reduction was Utilized. CONTRAST: CT scan of the thorax, abdomen and pelvis is performed with IV Contrast, patient injected with 100 mL of Isovue M300. FINDINGS: LUNGS: There is minimal biapical pleural parenchymal scarring. A benign right apical granuloma is aga in noted on image 12 in the right upper lobe. Mild background centrilobular emphysematous change. 2 m m noncalcified right midlung pulmonary nodule is stable on image 28 and appears dense on the prior, p ossibly related to a small granuloma. Lungs are grossly clear, there is no concerning parenchymal mas s or nodule identified. There is no pleural effusion or pneumothorax seen. The tracheobronchial tr ee is patent. MEDIASTINUM: There are no greater than 1 cm hilar or mediastinal lymph nodes. No pericardial effusi on is seen. LIVER/GB: Hepatic parenchyma is diffusely hypoattenuated in comparison to that of the spleen, most co mmonly seen in hepatic steatosis. This finding limits evaluation for hepatic masses. No gross evidenc e of hepatic mass is seen. No intrahepatic biliary ductal dilatation. Gallbladder surgically absent. PANCREAS: No significant abnormality is seen. SPLEEN: No significant abnormality is seen. Small splenules are present adjacent to the telida spleen . ADRENALS: No significant abnormality is seen. KIDNEYS: No significant abnormality is seen. BOWEL: There is a low rectal anastomosis status post reversal of the right ostomy. There is concentri c narrowing of the descending colon on image 40 that could relate to colonic spasm or early neoplasm with wall thickening circumferentially measuring 7 mm. On coronal image 41 this measures 2.3 cm in le ngth. No dilated large or small bowel is seen. There is also thickening of the sigmoid colon on coron al image 52 in a long segment measuring 2.8 cm. Lipoma is seen of the transverse colon. Transverse co joy is decompressed and there are prominent surrounding vasa recta. GENITAL ORGANS: No gross abnormality seen. LYMPH NODES: No greater than 1cm abdominal or pelvic lymph nodes are appreciated. OSSEOUS STRUCTURES: Sclerosis of the pubic symphysis is likely degenerative. Stable nonspecific scler otic focus of the right acetabulum measures 8 mm on image 113. There is a vertebrae of the lower lumb ar spine and mild multilevel degenerative changes of the spine. OTHER: Subcutaneous fibrosis from prior ostomy is seen in the right lower quadrant. Presacral thickening is similar to the prior measuring up to 9 mm and previously measuring 1 cm, over all stable. There is diastases recti. IMPRESSION: 1. Multifocal colonic narrowing is seen in the descending colon and sigmoid colon that could relate t o colonic spasm although neoplasm is possible. Follow-up PET/CT could be considered. 2. Presacral thickening is overall stable and likely on the basis of posttreatment change. 3. No evidence of metastatic disease within the chest, abdomen, or pelvis. Punctate benign granuloma and right lung 2 mm nodule, possible additional granuloma are stable.
== END ==
LOC: RADCTMAIN 09:37
PROVIDERS: ATTEND Internal Medicine Hematology & Oncology
DX: C20 Malignant neoplasm of rectum (principal); K56.699 Other intestinal obstruction unspecified as to partial versus complete obstruction; R91.1 Solitary pulmonary nodule
CPT/HCPCS: 71260; 74177; Q9967 ×2

== ENCOUNTER 2019-03-04 08:50 | Day surgery (SDC) | payer BC ==
[2019-03-03 09:05] VITALS: BMI 24.2
[~2019-03-04 08:50] MED LIST changes: -DEXAMETHASONE SOD PHOSPHATE 10 MG/ML 1 ML VIAL IV ONE; -HEPARIN SODIUM,PORCINE 5,000 UNIT/ML 1 ML VIAL SQ ONE; -HYDROmorphone 0.5 MG/0.5 ML SYRINGE IVP PRN; +LIDOCAINE 1% 20 ML VIAL (10MG/ML) FOR IV START INTRADERMA PRN; -MIDAZOLAM (PF) 2 MG/2 ML VIAL IV PRN; -ONDANSETRON 4 MG/2 ML VIAL IVP ONE; -SCOPOLAMINE 1.5MG/72HR PATCH TRANSDERM ONE; -ceFAZolin IN SWFI 2 GM/20 ML SYRINGE IVP ONE
[2019-03-04 09:49] VITALS: RESP 18; TEMP 98
[2019-03-04] MEDS ORDERED: PROPOFOL 10 MG/ML 20 ML VIAL IV ONE (10:08)
--- NOTE | 2019-03-04 10:32 | P.PCN ---
Date of Procedure: 03/04/19 Procedure(s) Performed: BRIEF HISTORY: Patient is a 63-year-old pleasant white female scheduled for an elective colonoscopy as a part of surveillance of rectal cancer diagnosed in March 2017. She is status post neoadjuvant chemo radiation followed by surgery. She is scheduled for a surveillance colonoscopy today. PROCEDURE PERFORMED: Colonoscopy with biopsy. PREOPERATIVE DIAGNOSIS: History of rectal cancer diagnosed also 2017 status post chemoradiation followed by surgery. IV sedation per Anesthesia. PROCEDURE: After informed consent was obtained, the patient, was brought into the endoscopy unit. IV sedation was administered by Anesthesia under continuous monitoring. Digital rectal examination was normal. Initially the Olympus CF-160 flexible video colonoscope was then inserted in the rectum, gradually advanced into the cecum without any difficulty. Careful examination was performed as the scope was gradually being withdrawn. Ileocecal valve and the appendiceal orifice were visualized and appeared normal. Prep was excellent. Mucosa of the cecum, ascending colon, transverse colon, descending colon, sigmoid colon appeared normal. In the distal rectum at 3-4 cm from the anal verge there was an area of the mucosa appeared slightly friable and raised possibly a polyp versus thick ened mucosal fold, status post multiple biopsies to rule out neoplasm. The patient tolerated the procedure well. IMPRESSION: 1 cm area of friable mucosa with an appearance of a polyp noted in the distal rectum at 3-4 cm from the anal verge, status post multiple biopsies Rest of the colon appeared normal RECOMMENDATIONS: Findings of this examination were discussed with the patient as well as a family. She was advised to follow with the biopsy results and she'll be seen in the office next week.
[2019-03-04 10:52] VITALS: BP 135/86; PULSE 61
== END 2019-03-04 11:09 | disposition home or self-care (01) ==
LOC: ORWHC2ENDO 08:50
PROVIDERS: ATTEND Internal Medicine Gastroenterology
DX: C20 Malignant neoplasm of rectum (principal); Z92.21 Personal history of antineoplastic chemotherapy; Z92.3 Personal history of irradiation; Z95.0 Presence of cardiac pacemaker; I48.91 Unspecified atrial fibrillation; Z87.891 Personal history of nicotine dependence; Z86.73 Personal history of transient ischemic attack (TIA), and cerebral infarction without residual deficits; Z79.01 Long term (current) use of anticoagulants; Z79.899 Other long term (current) drug therapy
CPT/HCPCS: 88305; 45380; J2704

== ENCOUNTER → 2019-03-14 | Outpatient (CLI) | payer BC ==
--- NOTE | 2019-03-18 09:44 | PE ---
Nuclear medicine PET/CT HISTORY: Rectal carcinoma, subsequent Patient received 7.9 mCi F-18 FDG intravenously in delayed scanning was performed from the skull base to the mid thighs. Localization and attenuation correction CT scan was performed. Correlation to CT scan 01/14/2019 Neck and chest: There is no evident cervical, supraclavicular, axillary, mediastinal, or hilar adenop athy. No suspicious hypermetabolic uptake. Defibrillator leads are noted. No evident lung mass. No pl eural or pericardial effusion. ABDOMEN: There is no retroperitoneal adenopathy. No evident liver mass. Patient is post cholecystecto my. Scarring is present in the subcutaneous fat of the right lower quadrant. Postop changes noted at the rectosigmoid junction and bowel within the pelvis. There is some uptake seen within the region of the anastomosis and colon just proximal to the anastomosis in the rectosigmoid junction, SUV is 5.1, towards the anal verge additional uptake is noted, SUV 4.9. Presacral soft tissue shows a similar a ppearance. Uptake associated with the ascending and transverse colon is felt likely to be physiologic . Osseous structures are unremarkable. IMPRESSION: Findings suspicious for recurrence within the rectum, abnormal uptake present just proxim al to the anastomosis at the rectosigmoid junction, some mild uptake also noted more distally to the anastomosis.
== END | disposition home or self-care (01) ==
LOC: RADPETMAIN 14:53
PROVIDERS: ATTEND Family Medicine
DX: C20 Malignant neoplasm of rectum (principal)
CPT/HCPCS: 78815; A9552

== ENCOUNTER → 2019-03-31 | Outpatient (CLI) | payer BC ==
--- NOTE | 2019-04-01 09:30 | MM ---
Reason for exam: screening (asymptomatic). History: Patient is postmenopausal, history of other cancer, and had first child at age 30. Physical Findings: A clinical breast exam by your physician is recommended on an annual basis and results should be correlated with mammographic findings. MG Screening Mammo w CAD Bilateral CC and MLO view(s) were taken. No prior studies available for comparison. There is a 2mm group of left retroareolar calcifications. No suspicious abnormality on the right breast. Left cardiac device partially obscures the superior breast. ASSESSMENT: Incomplete: need additional imaging evaluation, BI-RAD 0 RECOMMENDATION: Special view mammogram of the left breast. [facility] will attempt to contact patient to return for supplemental views.
== END | disposition home or self-care (01) ==
LOC: RADMAMWWP 07:30
PROVIDERS: ATTEND Family Medicine
DX: Z12.31 Encounter for screening mammogram for malignant neoplasm of breast (principal)
CPT/HCPCS: 77067

== ENCOUNTER → 2019-04-09 | Outpatient (CLI) | payer BC ==
--- NOTE | 2019-04-09 11:24 | MM ---
Reason for exam: additional evaluation requested from abnormal screening. Last mammogram was performed less than 1 month ago. History: Patient is postmenopausal, history of other cancer, and had first child at age 30. Physical Findings: Nurse did not find any significant physical abnormalities on exam. MG Work Up Mamm w CAD LT CC with magnification, LM with magnification, and LM view(s) were taken of the left breast. Prior study comparison: March 31, 2019, bilateral MG screening mammo w CAD. There is a 2mm group of left retroareolar calcifications that are course heterogenous and warrant biopsy in the lower inner quadrant. These results were verbally communicated with the patient and result sheet given to the patient on 04/09/19. ASSESSMENT: Suspicious, BI-RAD 4 RECOMMENDATION: Stereotactic core biopsy of the left breast. Patient choosing not to schedule at this time. PRELIMINARY REPORT CALLED AND FAXED TO DR. TUCKER ON 04/09/19.
== END | disposition home or self-care (01) ==
LOC: RADMAMWWP 10:08
PROVIDERS: ATTEND Family Medicine
DX: R92.8 Other abnormal and inconclusive findings on diagnostic imaging of breast (principal)
CPT/HCPCS: 77065

== ENCOUNTER → 2019-05-29 | Outpatient (CLI) | payer BC ==
--- NOTE | 2019-05-29 17:51 | CT ---
EXAMINATION TYPE: CT ChestAbdPelvis w con DATE OF EXAM: 05/29/2019 INDICATION: Follow up rectal ca COMPARISON: PET/CT 03/14/2019 CT DLP: 540 mGycm CONTRAST: Performed with Oral Contrast and with IV Contrast, patient injected with 100 mL of Isovue 300. TECHNIQUE: Axial images at 5 mm thick sections. Reconstructed images in the coronal plane. Delayed images through the kidneys. FINDINGS: CT CHEST: Portion of the thyroid visualized is normal. No suspicious lung nodules or focal infiltrates are present. No enlarged mediastinal or hilar adenopathy is evident. The ascending aorta diameter at the level of the main pulmonary artery is 2.9 cm. The main pulmonary artery diameter at the bifurcation is 2.[address] ABDOMEN: Liver: Normal Spleen: Normal Pancreas: Normal Adrenal glands: The adrenal glands are normal. Gallbladder: Normal Kidneys: No masses are evident. No hydronephrosis is present. No cysts are present. Delayed images were obtained through the kidneys, which remain unremarkable. Aorta: Vascular calcification is within the aorta. Inferior vena cava: Normal. CT PELVIS: There is thickening at the level of the perirectal region. Distal sigmoid colon has scattered diverti culi without acute diverticulitis. The anastomosis appears widely patent. Some mild soft tissues thic kening is in the presacral space. Oral contrast extends to the ascending colon region. There are loop s of bowel which are incompletely distended or lack oral contrast limiting their evaluation. Appendix: Not identified. No suspicious inflammatory changes adjacent identified Urinary bladder: Normal. Genitourinary structures: Prostate appears normal Osseous structures: No suspicious lytic or sclerotic lesions. Some degenerative changes at the pubic symphysis. Degenerative disc changes are present L5-S1 IMPRESSIONS: 1. There is thickening at the rectal region. Some soft tissue thickening is in the presacral space. F indings are changing from the PET/CT. Recurrence should be considered.
== END | disposition home or self-care (01) ==
LOC: RADCTMAIN 06:53
PROVIDERS: ATTEND Internal Medicine Hematology & Oncology
DX: K62.89 Other specified diseases of anus and rectum (principal); M53.3 Sacrococcygeal disorders, not elsewhere classified; C20 Malignant neoplasm of rectum
CPT/HCPCS: 71260; 74177; Q9967

== ENCOUNTER → 2019-06-24 | Day surgery (SDC) | payer BC ==
[2019-06-24 11:34] VITALS: RESP 16; BMI 22.7
[2019-06-24 13:50] VITALS: BP 95/63; PULSE 60; TEMP 97.9
--- NOTE | 2019-06-24 13:57 | P.OP ---
Date of Procedure: 06/24/19 Preoperative Diagnosis: Abnormal left mammogram Postoperative Diagnosis: Defer to pathology Procedure(s) Performed: Left breast core biopsy Anesthesia: local Surgeon: Ezequiel Martinez Pathology: other (Left breast core biopsy) Condition: stable Disposition: PACU Description of Procedure: PROCEDURE: The patient was placed on the mammotome table. She had been previously localized by the radiologist. Her skin was prepped and draped in the usual sterile fashion. The skin was anesthetized with 1% local Xylocaine. A nickolas incision was made with the #11 blade. The mammotome needle was then positioned in the skin and then positioned into the breast. The mammotome needle was fired. Sequential core biopsies were taken. After the specimens were removed, a clip was placed in the biopsy site. Position of the clip was confirmed with mammogram film. The patient tolerated the procedure well.
--- NOTE | 2019-06-24 14:54 | MM ---
EXAMINATION TYPE: MG stereo VAD BX LT DATE OF EXAM: 06/24/2019 COMPARISON: Diagnostic left breast mammogram dated 04/09/2019 CLINICAL HISTORY: Left breast stereotactic guided biopsy TECHNIQUE: Stereotactic guided core biopsy of left breast. FINDINGS: The procedure of stereotactic guided core biopsy was explained to the patient. Benefits, alternatives, and risks were discussed. An informed consent was then obtained. Preprocedural timeout was performed. The shortness pathway for biopsy was chosen. Shortness pathway was CC from below approach. I performed the localization, then surgeon, Dr. Martinez performed the remainder of the procedure. A vacuum assisted biopsy gun was used to obtain multiple core samples. The patient tolerated the procedure well without any immediate complication. The patient was kept in the radiology department for short stay after the procedure and then discharged home in stable condition. Targeted calcifications are identified in specimen mammogram. Post biopsy mammogram shows the clip to appear in satisfactory position relative to the targeted area of concern on the preprocedure images. IMPRESSION: SUCCESSFUL, UNCOMPLICATED STEREOTACTIC GUIDED CORE BIOPSY OF A 2 MM GROUP OF RETROAREOLAR CALCIFICATIONS IN THE LEFT BREAST , FULL PATHOLOGY RESULTS TO FOLLOW. Pathology Results: Benign LEFT BREAST, NEEDLE CORE BIOPSY: Benign breast parenchyma with fibrocystic changes and fibroadenomatoid hyperplasia. Intraducal mineralizations are seen focally. Recommendation Follow up mammogram of the left breast in 6 months. MTDD
== END ==
LOC: RADMAMWWP 11:12
PROVIDERS: ATTEND Surgery
DX: N60.12 Diffuse cystic mastopathy of left breast (principal); D24.2 Benign neoplasm of left breast
CPT/HCPCS: 19081; 88305; A4648

== ENCOUNTER → 2020-06-22 | Outpatient (CLI) | payer MEDICARE ==
[2020-06-23 02:08] LABS: African American GFR (CKD) 77.8 (60.0-200.0); Albumin 4.7 g/dL (3.80-4.90); Albumin/Globulin Ratio 2.24 (1.60-3.17); BUN/Creat Ratio 15.56 Ratio (12.00-20.00); Calcium 9.8 mg/dL (8.7-10.3); Chol/HDL Ratio 2.87; Globulin 2.1 g/dL (1.6-3.3); LDL Cholesterol,Calculated 64.4 mg/dL (0.0-131.0); Non-African American GFR(CKD) 67.1 (60.0-200.0); Potassium 4.7 mmol/L (3.5-5.5); Total Bilirubin 0.7 mg/dL (0.2-1.2); Total Protein 6.8 g/dL (6.2-8.2); VLDL Calculation 36.6 mg/dL (5.00-40.00)
== END | disposition home or self-care (01) ==
LOC: LABWHC1 14:21
PROVIDERS: ATTEND Internal Medicine Interventional Cardiology
DX: E78.2 Mixed hyperlipidemia (principal)
CPT/HCPCS: 36415; 80053; 80061

== ENCOUNTER → 2020-07-07 | Outpatient (CLI) | payer MEDICARE ==
[2020-07-07 11:42] LABS: African American GFR (CKD) >90 (>60 ml/min/1.73 sqM); Blood Urea Nitrogen 14 mg/dL (7-17); Non-African American GFR(CKD) 87 (>60 ml/min/1.73 sqM)
--- NOTE | 2020-07-07 13:34 | CT ---
EXAMINATION TYPE: CT ChestAbdPelvis w con DATE OF EXAM: 07/07/2020 COMPARISON: Most recent CT May 29, 2019 and older CTs. Most recent PET/CT March 14, 2019. HISTORY: Rectal Cancer CT DLP: 1701 mGycm. Automated Exposure Control for Dose Reduction was Utilized. CONTRAST: CT scan of the thorax, abdomen and pelvis is performed with IV Contrast, patient injected with 100 ml mL of Isovue 300. FINDINGS: LUNGS: Mild underlying emphysematous change is redemonstrated. No new suspicious greater than 4 mm no dules or masses. Occasional scattered micronodule redemonstrated. No pleural effusion or pneumothorax seen bilaterally. MEDIASTINUM: There are no greater than 1 cm hilar or mediastinal lymph nodes. No cardiomegaly or pe ricardial effusion is seen. Multi lead pacemaker device redemonstrated. LIVER/GB: Cholecystectomy clips redemonstrated. PANCREAS: No significant abnormality is seen. SPLEEN: Stable splenule in splenic hilum. ADRENALS: No significant abnormality is seen. KIDNEYS: No new renal mass or hydronephrosis is present bilaterally. BOWEL: New left lower quadrant colostomy. Small remnant rectal stump. Presacral fat stranding improve d from prior study near maximum of 106 No suspicious small or large bowel dilatation. Oral contrast r eaches level of the distal right colon. GENITAL ORGANS: No gross abnormality seen. LYMPH NODES: No greater than 1cm abdominal or pelvic lymph nodes are appreciated. OSSEOUS STRUCTURES: Moderate to severe disc space narrowing with vacuum disc phenomenon L5-S1 level r edemonstrated. OTHER: No significant additional abnormality is seen. IMPRESSION: Interval distal colonic surgery. No suspicious new mass or adenopathy to suggest recurre nt neoplasm.
== END | disposition home or self-care (01) ==
LOC: RADCTMAIN 10:24
PROVIDERS: ATTEND Internal Medicine Hematology & Oncology
DX: C20 Malignant neoplasm of rectum (principal)
CPT/HCPCS: 82565; 84520; 71260; 74177; 36415; Q9967

== ENCOUNTER → 2020-09-14 | Day surgery (SDC) | payer MEDICARE ==
[2020-09-12 11:53] VITALS: BMI 26.6
[~2020-09-14] MED LIST changes: +LIDOCAINE 1% (10MG/ML) FOR IV START INTRADERMA PRN; -LIDOCAINE 1% 20 ML VIAL (10MG/ML) FOR IV START INTRADERMA PRN; +PROPOFOL 10 MG/ML 20 ML VIAL IV ONE
[2020-09-14 11:10] VITALS: RESP 16; TEMP 97.1
--- NOTE | 2020-09-14 11:51 | P.PCN ---
Date of Procedure: 09/14/20 Procedure(s) Performed: BRIEF HISTORY: Patient is a 65-year-old pleasant female scheduled for an elective colonoscopy as a part of surveillance of rectal adenocarcinoma diagnosed in February 2019. She subsequently had chemo radiation followed by surgery with a descending colostomy. Patient is scheduled for a surveillance colonoscopy today. PROCEDURE PERFORMED: Colonoscopy via colostomy. PREOPERATIVE DIAGNOSIS: Surveillance of rectal cancer diagnosed in February 2019. IV sedation per Anesthesia. PROCEDURE: After informed consent was obtained, the patient, was brought into the endoscopy unit. IV sedation was administered by Anesthesia under continuous monitoring. Digital rectal examination was normal. Initially the Olympus CF-160 flexible video colonoscope was then inserted in the colostomy in the left upper quadrant, gradually advanced into the cecum without any difficulty. Careful examination was performed as the scope was gradually being withdrawn. Ileocecal valve and the appendiceal orifice were visualized and appeared normal. Prep was excellent. Mucosa of the cecum, ascending colon, transverse colon, descending colon, appeared normal. In the distal transverse colon there was a 2 cm semi- was a polyp suspicious for upper lipoma and biopsies were done from this area. The descending colon and the colostomy site appeared normal. Patient tolerated the procedure well. IMPRESSION: 2 cm semi-was a polyp suspicious for lipoma in the distal transverse colon status post multiple biopsies The colostomy site and the rest of the colon appeared normal RECOMMENDATIONS: Findings of this examination were discussed with the patient as well as her family. She was advised to have a repeat surveillance colonoscopy in 2-3 years because of history of colon cancer..
[2020-09-14 12:04] VITALS: PULSE 60
[2020-09-14 12:07] VITALS: BP 121/75
== END ==
LOC: ORWHC2ENDO 10:44
PROVIDERS: ATTEND Internal Medicine Gastroenterology
DX: Z12.11 Encounter for screening for malignant neoplasm of colon (principal); K63.5 Polyp of colon; K63.89 Other specified diseases of intestine; I48.91 Unspecified atrial fibrillation; Z93.3 Colostomy status; Z85.048 Personal history of other malignant neoplasm of rectum, rectosigmoid junction, and anus; Z92.21 Personal history of antineoplastic chemotherapy; Z92.3 Personal history of irradiation; Z79.01 Long term (current) use of anticoagulants; Z79.899 Other long term (current) drug therapy; Z97.2 Presence of dental prosthetic device (complete) (partial); Z95.0 Presence of cardiac pacemaker; Z86.73 Personal history of transient ischemic attack (TIA), and cerebral infarction without residual deficits; Z90.49 Acquired absence of other specified parts of digestive tract; Z98.890 Other specified postprocedural states
CPT/HCPCS: 44389; 88305; J2704; 45380

== ENCOUNTER → 2020-11-03 | Outpatient (CLI) | payer MEDICARE ==
[2020-11-03 11:22] LABS: African American GFR (CKD) >90 (>60 ml/min/1.73 sqM); Blood Urea Nitrogen 9 mg/dL (7-17); Non-African American GFR(CKD) >90 (>60 ml/min/1.73 sqM)
--- NOTE | 2020-11-03 15:01 | CT ---
EXAMINATION TYPE: CT ChestAbdPelvis w con DATE OF EXAM: 11/03/2020 COMPARISON: 07/07/2020 and 05/29/2019 HISTORY: 65-year-old female C20, follow up rectal cancer TECHNIQUE: Contiguous axial scanning of the chest, abdomen, and pelvis performed with IV Contrast, pa tient injected with 100 mL of Isovue 300. Delayed images through the kidneys were obtained. Coronal/s agittal reconstructions performed. CT DLP: 879.8 mGycm Automated exposure control for dose reduction was used. FINDINGS: CHEST: The heart is normal size with trace pericardial fluid. Left anterior chest wall AICD generator is rig ht atrial, right ventricular, and coronary sinus leads. Aorta normal caliber with conventional arch vessel branching anatomy. No thoracic lymphadenopathy by CT size criteria. Mild centrilobular emphysema. Stable calcified granuloma lateral right upper lobe. No consolidation o r pleural effusion. ABDOMEN: Tiny hiatal hernia. No focal liver lesion or biliary ductal dilatation. Portal venous system is paten t. Cholecystectomy clips. Unchanged mild thickening of the left adrenal gland without discrete nodularity. Right adrenal gland, kidneys, spleen with anterior splenule, pancreas appear within normal limits. No dilated small bowel, free fluid, or free air. No mesenteric or retroperitoneal lymphadenopathy. Oral contrast progressed to the splenic flexure of the colon. There is moderate stool burden. No mamie colonic inflammatory change. There is a left lower quadrant proximal sigmoid colostomy. Circumaortic left renal vein. Mild episodic calcifications abdominal aorta and iliac arteries. PELVIS: Bladder shows prominent urinary distention. There is soft tissue density in the mid perineum suspected prolapse of the vaginal canal and uterus. This should be correlated clinically with physical exam findings. No abnormal fluid collection in the pelvis or pelvic lymphadenopathy seen. Rectum and anus not well delineated. Presacral soft tissue th ickening is unchanged. BONES: Age-indeterminate vertical fracture of the right sacral ala. Some sclerosis here could reflect posttr eatment change. Mild degenerative change at the hips. Osteitis pubis. Left L5 hemisacralization. Dege nerative disc disease above at L4-L5. Otherwise, no osseous destructive process. IMPRESSION: 1. STATUS POST DISTAL COLON RESECTION WITH LEFT LOWER QUADRANT SIGMOID COLOSTOMY. 2. FOCAL SOFT TISSUE AT THE PERINEUM MEASURING 3.8 CM, SUSPECTED DENSITY RELATING TO PELVIC FLOOR REL AXATION AND PROLAPSE OF THE VAGINA AND UTERUS. CORRELATE WITH PHYSICAL EXAM FINDINGS. 3. NEW ASYMMETRIC SCLEROSIS OF THE RIGHT SIDE OF THE SACRUM, SUSPECTED POSTTREATMENT CHANGE. QUERY AN Y RADIATION THERAPY. IN ADDITION, THERE IS AN AGE-INDETERMINATE INSUFFICIENCY FRACTURE OF THE RIGHT S ACRAL ALA NOW. 4. NO FINDINGS OF METASTATIC DISEASE. 5. COPD WITH MILD EMPHYSEMA. TINY HIATAL HERNIA.
== END ==
LOC: RADCTMAIN 10:26
PROVIDERS: ATTEND Internal Medicine Hematology & Oncology
DX: C20 Malignant neoplasm of rectum (principal); S32.10XA Unspecified fracture of sacrum, initial encounter for closed fracture; J44.9 Chronic obstructive pulmonary disease, unspecified; K44.9 Diaphragmatic hernia without obstruction or gangrene; Z93.3 Colostomy status
CPT/HCPCS: 82565; 84520; 71260; 74177; 36415; Q9967

== ENCOUNTER → 2021-01-19 | Outpatient (CLI) | payer MEDICARE ==
[2021-01-20 02:57] LABS: African American GFR (CKD) 77.2 (60.0-200.0); Albumin 5.1 g/dL (3.80-4.90); Albumin/Globulin Ratio 2.32 (1.60-3.17); Anion Gap 11.6 mmol/L (4.00-12.00); BUN/Creat Ratio 17.78 Ratio (12.00-20.00); Calcium 10.2 mg/dL (8.7-10.3); Carbon Dioxide 22.4 mmol/L (21.6-31.8); Chol/HDL Ratio 2.63; Globulin 2.2 g/dL (1.6-3.3); LDL Cholesterol,Calculated 79.4 mg/dL (0.0-131.0); Non-African American GFR(CKD) 66.6 (60.0-200.0); Potassium 5.3 mmol/L (3.5-5.5); T4, Free (Free Thyroxine) 0.8 ng/dL (0.80-1.80); Total Bilirubin 0.6 mg/dL (0.3-1.2); Total Protein 7.3 g/dL (6.2-8.2); VLDL Calculation 24.6 mg/dL (5.00-40.00)
== END | disposition home or self-care (01) ==
LOC: LABWHC1 11:04
PROVIDERS: ATTEND Nurse Practitioner Adult Health
DX: E11.9 Type 2 diabetes mellitus without complications (principal); E55.9 Vitamin D deficiency, unspecified; I10 Essential (primary) hypertension; E78.2 Mixed hyperlipidemia
CPT/HCPCS: 36415; 80053; 80061; 82306; 84439; 84443

== ENCOUNTER 2021-05-09 16:44 | Emergency (ER) | payer OTHER, MEDICARE ==
[2021-05-09 16:52] VITALS: RESP 18; TEMP 98.7
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
[2021-05-09 17:05] LABS: Basophils % (A) 0 %; Eosinophils # (A) 0.1 k/uL (0-0.7); Eosinophils % (A) 0 %; Lymphocytes # (A) 2.2 k/uL (1.0-4.8); Lymphocytes % (A) 18 %; MCH 32.6 pg (25.0-35.0); MCHC 34.7 g/dL (31.0-37.0); Mean Platelet Volume 8.3; Monocytes # (A) 0.6 k/uL (0-1.0); Monocytes % (A) 5 %; Neutrophils # (A) 9.7 k/uL (1.3-7.7); Neutrophils % (A) 76 %; Platelet Count 288 k/uL (150-450); RBC 4.89 m/uL (3.80-5.40); RDW 11.7 % (11.5-15.5); WBC 12.7 k/uL (3.8-10.6)
[2021-05-09 17:14] LABS: INR 1.3 (<1.2); Partial Thromboplastin Time 26.7 sec (22.0-30.0); Prothrombin Time 12.9 sec (9.0-12.0)
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
--- NOTE | 2021-05-09 17:49 | XR ---
EXAMINATION TYPE: XR knee complete LT DATE OF EXAM: 05/09/2021 COMPARISON: NONE HISTORY: Pain TECHNIQUE: 3 views FINDINGS: There is a transverse fracture of the patella. There is separation of the fragments 2 cm. T here is no dislocation. Distal femur and proximal tibia appears intact. IMPRESSION: Displaced acute fracture of the patella.
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
--- NOTE | 2021-05-09 17:51 | XR ---
EXAMINATION TYPE: XR pelvis AP view DATE OF EXAM: 05/09/2021 COMPARISON: NONE HISTORY: Pain TECHNIQUE: Single view FINDINGS: Pelvic ring is intact. Proximal femurs and hip joints are intact. Sacroiliac joints appear normal. There is stoma over the left ilium. IMPRESSION: Negative pelvis x-ray exam. No fracture.
[2021-05-09] MEDS ORDERED: ACET/COD 300 MG/30 MG STARTER PACK 6 TAB BTL PO STA (18:24)
[2021-05-09] MEDS ORDERED: MORPHINE SULFATE 4 MG/ML SYRINGE IV STA (18:30)
[2021-05-09 18:55] VITALS: BP 126/84; PULSE 61
== END 2021-05-09 18:55 | disposition home or self-care (01) ==
LOC: EC 16:44
DX: S82.002A Unspecified fracture of left patella, initial encounter for closed fracture (principal); I48.91 Unspecified atrial fibrillation; F12.90 Cannabis use, unspecified, uncomplicated; Z79.01 Long term (current) use of anticoagulants; Z79.899 Other long term (current) drug therapy; Z86.73 Personal history of transient ischemic attack (TIA), and cerebral infarction without residual deficits; Z87.891 Personal history of nicotine dependence; Z90.49 Acquired absence of other specified parts of digestive tract; Z95.0 Presence of cardiac pacemaker; V89.2XXA Person injured in unspecified motor-vehicle accident, traffic, initial encounter; Y92.410 Unspecified street and highway as the place of occurrence of the external cause
CPT/HCPCS: 36415; 93005; 80048; 85025; 85610; 85730; 72170; 73562; 71046; 72125; 70450; 96374; 99285; J2270

== ENCOUNTER 2021-05-20 07:32 | Day surgery (SDC) | payer OTHER, MEDICARE ==
[2021-05-17 12:42] VITALS: BMI 27.3
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
[~2021-05-20 07:32] MED LIST changes: +ACETAMINOPHEN TAB 500 MG TAB PO PRN; +HYDROmorphone 0.5 MG/0.5 ML SYRINGE IVP PRN; -LACTATED RINGERS 1,000 ML IV SCH; -LIDOCAINE 1% (10MG/ML) FOR IV START INTRADERMA PRN; +MIDAZOLAM 2 MG/2 ML VIAL IV PRN; +ONDANSETRON 4 MG/2 ML VIAL IVP PRN; -PROPOFOL 10 MG/ML 20 ML VIAL IV ONE
--- NOTE | 2021-05-20 09:34 | P.PN ---
Progress Note - Text Progress Note Date: 05/20/21 Pt s/e in pre op area. All protocols followed. Pt was seen by dept of anesthesia and deemed fit for surgery. All risks and benefits were discussed again with patient as outlined in the risk review. She was ready and willing to undergo the procedure today. She will be given a weight based dose of abx. The site was marked. The consent was confirmed and signed. We will plan on her going home after surgery with her knee immobilizer and she agreed.
[2021-05-20] MEDS ORDERED: SUCCINYLCHOLINE CHLORIDE 100 MG/5 ML SYR IV ONE (10:15)
[2021-05-20] MEDS ORDERED: PROPOFOL 10 MG/ML 20 ML VIAL IV ONE (10:15)
[2021-05-20] MEDS ORDERED: PHENYLEPHRINE-0.9% NACL SYG 1,000 MCG/10 ML SYRINGE ONE (10:15)
[2021-05-20] MEDS ORDERED: ROCURONIUM 10 MG/ML (5 ML VIAL) IV ONE (10:15)
[2021-05-20] MEDS ORDERED: ROPIVACAINE 5 MG/ML 30 ML VIAL ONE (10:15)
[2021-05-20] MEDS ORDERED: HYDROmorphone (PF) 1 MG/ML ONE (10:15)
[2021-05-20] MEDS ORDERED: NEOSTIGMINE 1 MG/ML 10 ML VIAL ONE (10:15)
[2021-05-20] MEDS ORDERED: GLYCOPYRROLATE 0.2 MG/ML 2 ML VIAL ONE (10:15)
[2021-05-20] MEDS ORDERED: LACTATED RINGERS 1,000 ML IV ONE (10:15)
[2021-05-20] MEDS ORDERED: LIDOCAINE 1% INJ 10MG/ML (20 ML MDV) ONE (10:15)
[2021-05-20] MEDS ORDERED: fentaNYL (PF) 50 MCG/ML 2 ML AMP ONE (10:15)
[2021-05-20] MEDS ORDERED: SODIUM CHLORIDE 0.9% 50 ML with ceFAZolin 2 GM IV ONE ×2 (10:30)
[2021-05-20] MEDS ORDERED: ceFAZolin 1,000 MG in SODIUM CHLORIDE 0.9% 1,000 ML IRRIGATION ONE (10:43)
--- NOTE | 2021-05-20 11:53 | XR ---
EXAMINATION TYPE: XR knee limited LT, FL guidance operating room DATE OF EXAM: 05/20/2021 CLINICAL HISTORY: pain TECHNIQUE: Postop evaluation. COMPARISON: None. FINDINGS: Fluoroscopic guidance was provided for patellar fixation. 2 patellar screws are noted to be in place. 9 radiographs are submitted. IMPRESSION: As above
[2021-05-20] MEDS ORDERED: ROPIVACAINE 5 MG/ML 30 ML VIAL MISCELLANE ONE (12:16)
--- NOTE | 2021-05-20 12:21 | P.PN ---
Progress Note - Text Progress Note Date: 05/20/21 Brief Post op note: preoperative diagnosis: left patella fracture postoperative diagnosis: same Procedures performed: ORIF left patella Implants: Arthrox 4.0 cannulated screws with fiber tape Surgeon: Lois Anesthesia: Neva HANSON EBL: 30 ml UO: 0 Fluids: 1000 Complications: none Dispo: Stable to PACU Post op plan: Pt is admitted to obs and will go home after she is awake and stable. Scripts are sent to pharmacy. DC instructions are in chart. She will follow upin 2 weeks.
[2021-05-20] MEDS: LACTATED RINGERS 1,000 ML IV SCH ×2 (13:38→13:40)
[2021-05-20 15:09] VITALS: BP 113/79; PULSE 71; RESP 18; TEMP 98
--- NOTE | 2021-05-20 15:41 | P.ANPRN ---
Procedure Note - Anesthesia - Nerve Block Performed Left Adductor Canal Single Time Out Performed: Yes Date of Procedure: 05/20/21 Procedure Start Time: :17 Procedure Stop Time: : Location of Patient: Phase I Indication: Acute Post-Operative Pain, Requested by Surgeon Specifically requested for management of pain by DrOlivia: Kole Abreu Sedation Type: Sedate with meaningful contact maintained Preparation: Sterile Prep Position: Supine Catheter: None Needle Types: Pajunk Needle Gauge: 21 Ultrasound used to visualize needle placement: Yes Ultrasound used to observe medication spread: Yes Injectate: 0.5% Ropivacaine (see comment for volume) (30cc) Blood Aspirated: No Pain Paresthesia on Injection Noted: No Resistance on Injection: Normal Image Stored and Saved: Yes Events: Uneventful and Well Tolerated
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
== END 2021-05-20 15:50 | disposition home or self-care (01) ==
LOC: OR 07:32 → 6NMEDSUR 07:40 → OR 15:50
PROVIDERS: ATTEND Orthopaedic Surgery
DX: S82.042A Displaced comminuted fracture of left patella, initial encounter for closed fracture (principal); V89.2XXA Person injured in unspecified motor-vehicle accident, traffic, initial encounter; I48.91 Unspecified atrial fibrillation; Z86.73 Personal history of transient ischemic attack (TIA), and cerebral infarction without residual deficits; Z87.891 Personal history of nicotine dependence; Z95.0 Presence of cardiac pacemaker; Z79.01 Long term (current) use of anticoagulants; Z79.899 Other long term (current) drug therapy; E78.5 Hyperlipidemia, unspecified
CPT/HCPCS: 64447; 76942; 73560; 27524; C1713 ×2; J2710; J0690 ×2; J2001; J3010; J1170; J2795; J2370; J0330; J2704

== ENCOUNTER → 2022-03-13 | Outpatient (CLI) | payer MEDICARE ==
[2022-03-13 23:52] LABS: ALT 28 U/L (8-44); AST 27 U/L (13-35); African American GFR (CKD) 60.2 (60.0-200.0); Albumin 5.1 g/dL (3.8-4.9); Albumin/Globulin Ratio 2.04 (1.60-3.17); Alkaline Phosphatase 87 U/L (41-126); BUN/Creat Ratio 18.27 Ratio (12.00-20.00); Blood Urea Nitrogen 20.1 mg/dL (9.0-27.0); Calcium 10.3 mg/dL (8.7-10.3); Carbon Dioxide 20.5 mmol/L (20.0-27.5); Chloride 99 mmol/L (96-109); Chol/HDL Ratio 2.83 Ratio; Globulin 2.5 g/dL (1.6-3.3); Glucose 118 mg/dL (70-110); LDL Cholesterol,Calculated 95.2 mg/dL (0.0-131.0); Non-African American GFR(CKD) 51.9 (60.0-200.0); Potassium 5.1 mmol/L (3.5-5.5); Sodium 137 mmol/L (135-145); Total Protein 7.6 g/dL (6.2-8.2)
== END | disposition home or self-care (01) ==
LOC: LABWHC1 15:19
PROVIDERS: ATTEND Internal Medicine Interventional Cardiology
DX: E78.2 Mixed hyperlipidemia (principal)
CPT/HCPCS: 36415; 80053; 80061

== ENCOUNTER → 2022-08-07 | Outpatient (CLI) | payer MEDICARE ==
[2022-08-07 13:06] LABS: African American GFR (CKD) >90 (>60 ml/min/1.73 sqM); Blood Urea Nitrogen 5 mg/dL (7-17); Non-African American GFR(CKD) 90 (>60 ml/min/1.73 sqM)
--- NOTE | 2022-08-07 15:00 | CT ---
EXAMINATION TYPE: CT ChestAbdPelvis w con DATE OF EXAM: 08/07/2022 COMPARISON: Prior CT April 26, 2021 and older studies. HISTORY: h/o rectal CA, f/u CT DLP: 1040.6 mGycm. Automated Exposure Control for Dose Reduction was Utilized. CONTRAST: CT scan of the thorax, abdomen and pelvis is performed with oral and with IV Contrast, patient inject ed with 70 mL of Isovue 300. FINDINGS: LUNGS: Occasional scattered micronodule redemonstrated. For reference, There is stable 2 to 3 mm ante rior right upper lobe nodule axial image 13. Mild underlying emphysematous change is redemonstrated . No new suspicious greater than 5 mm nodules or masses. No pleural effusion or pneumothorax seen bi laterally. MEDIASTINUM: There are no greater than 1 cm hilar or mediastinal lymph nodes. No cardiomegaly or pe ricardial effusion is seen. Multi lead pacemaker device redemonstrated. LIVER/GB: Multiple Cholecystectomy clips redemonstrated. PANCREAS: No significant abnormality is seen. SPLEEN: Stable splenule in inferior splenic hilum and anterior to the spleen redemonstrated. ADRENALS: No significant abnormality is seen. KIDNEYS: No new renal mass or hydronephrosis is present bilaterally. BOWEL: Left lower quadrant colostomy redemonstrated. Small remnant rectal stump redemonstrated. Some abnormal Presacral fat stranding axial image 104 unchanged from most recent prior studies. No suspici ous small or large bowel dilatation. Oral contrast reaches level of the ostomy. GENITAL ORGANS: Uterus surgically absent. LYMPH NODES: No greater than 1cm abdominal or pelvic lymph nodes are appreciated. OSSEOUS STRUCTURES: Moderate to severe disc space narrowing with vacuum disc phenomenon L5-S1 level r edemonstrated. There is limbus vertebra anterior superior L4 vertebra redemonstrated. OTHER: Mild calcified plaque of the aorta extends into branch vessels. IMPRESSION: No suspicious new mass or adenopathy to suggest recurrent neoplasm.
== END | disposition home or self-care (01) ==
LOC: RADCTMAIN 12:27
PROVIDERS: ATTEND Internal Medicine Hematology & Oncology
DX: C20 Malignant neoplasm of rectum (principal)
CPT/HCPCS: 82565; 84520; 71260; 74177; 36415; Q9967

== ENCOUNTER → 2023-02-05 | Outpatient (CLI) | payer MEDICARE ==
[2023-02-05 11:04] LABS: African American GFR (CKD) >90 (>60 ml/min/1.73 sqM); Blood Urea Nitrogen 15 mg/dL (7-17); Non-African American GFR(CKD) 90 (>60 ml/min/1.73 sqM)
--- NOTE | 2023-02-05 15:06 | CT ---
EXAMINATION TYPE: CT ChestAbdPelvis w con DATE OF EXAM: 02/05/2023 COMPARISON: 08/07/2022 HISTORY: 67-year-old female C2 0, Malignant neoplasm of rectum TECHNIQUE: Contiguous axial scanning of the chest, abdomen, and pelvis performed with IV Contrast, pa tient injected with 100 ml mL of Isovue 300. Delayed images through the kidneys were obtained. Verma l/sagittal reconstructions performed. CT DLP: 993.80 mGycm Automated exposure control for dose reduction was used. FINDINGS: Chest: Heart normal size without pericardial effusion. Left anterior chest wall pacemaker generator with rig ht atrial, coronary sinus, and right ventricular leads. Aorta is normal caliber with minimal atherosclerotic arch calcifications and conventional vessel bran maximiliano anatomy. No thoracic lymphadenopathy by CT size criteria. Moderate centrilobular emphysema scattered throughout. A tiny groundglass focus posterior left upper lobe, axial image 11 is unchanged. No consolidation or pleural effusion. ABDOMEN: No focal liver lesion or biliary ductal dilatation. Portal venous system is patent. Cholecystectomy c lips. Adrenal glands, kidneys and bilateral extrarenal pelves, spleen with a couple anterior splenules, and pancreas appear within normal limits. No dilated small bowel, free fluid, or free air. No mesenteric or retroperitoneal lymphadenopathy. Normal appendix. Oral contrast progressed to the hepatic flexure of the colon. There is moderate stoo l burden. Left lower quadrant sigmoid colostomy. No pericolonic inflammatory change. Mild atherosclerotic calcifications infrarenal abdominal aorta and common iliac arteries. Pelvis: Bladder partially distended. There is some pelvic floor relaxation noted. Distal rectal resection dem onstrated. Soft tissue nodularity likely relating to anus is identified, unchanged. Mild presacral so ft tissue thickening is unchanged. No abnormal fluid collection the pelvis or pelvic lymphadenopathy. Uterus surgically absent. Neither ovary is well delineated. Bones: Moderate to advanced degenerative disc disease and endplate spondylosis L5-S1. S1 is a transitional l umbosacral segment. No osseous destructive process seen. IMPRESSION: 1. STATUS POST DISTAL COLON RESECTION WITH LEFT LOWER QUADRANT SIGMOID COLOSTOMY. MODERATE STOOL ALVAREZ EN. NO EVIDENCE FOR RECURRENT OR METASTATIC DISEASE. 2. MILD PRESACRAL SOFT TISSUE THICKENING IS SIMILAR, LIKELY POSTTREATMENT CHANGE. 3. COPD with moderate emphysema.
== END | disposition home or self-care (01) ==
LOC: RADCTMAIN 09:41
PROVIDERS: ATTEND Internal Medicine Hematology & Oncology
DX: C20 Malignant neoplasm of rectum (principal); J43.9 Emphysema, unspecified; K59.00 Constipation, unspecified; R11.2 Nausea with vomiting, unspecified; R19.7 Diarrhea, unspecified; Z93.3 Colostomy status
CPT/HCPCS: 82565; 84520; 71260; 74177; 36415; Q9967

== ENCOUNTER → 2023-08-27 | Outpatient (CLI) | payer MEDICARE ==
--- NOTE | 2023-08-28 10:53 | MM ---
Reason for Exam: Screening (asymptomatic). Last mammogram was performed 4 year(s) and 5 month(s) ago. Patient History: Menarche at age 14. First Full-Term at age 30. Late child-bearing (after 30). Postmenopausal. Other cancer. 06/24/2019, Benign Core Biopsy on the left side. Risk Values: Reena 5 year model risk: 2.5%. NCI Lifetime model risk: 8.2%. Prior Study Comparison: 03/31/2019 Bilateral Screening Mammogram, [facility]. 04/09/2019 Left Diagnostic Mammogram, [facility]. Tissue Density: There are scattered fibroglandular densities. Findings: Analyzed By CAD. Pattern appears symmetrical. No significant interval change is evident. Pacemaker overlies the left breast. Stable oval densities within the outer right breast No suspicious groups of microcalcifications, spiculated or lobular masses, architectural distortion or other secondary signs of malignancy are mammographically apparent. Overall Assessment: Benign, BI-RAD 2 Management: Screening Mammogram of both breasts in 1 year. A negative mammogram report should not preclude additional follow up of suspicious palpable abnormalities. Patient should continue monthly self breast exam. A clinical breast exam by your physician is recommended on an annual basis and results should be correlated with mammographic findings. Electronically signed and approved by: Jason Hassan D.O. Radiologis
== END | disposition home or self-care (01) ==
LOC: RADMAMWWP 10:30
PROVIDERS: ATTEND Family Medicine
DX: Z12.31 Encounter for screening mammogram for malignant neoplasm of breast (principal); Z78.0 Asymptomatic menopausal state
CPT/HCPCS: 77063; 77067

== ENCOUNTER → 2024-02-18 | Outpatient (CLI) | payer MEDICARE ==
[2024-02-18 14:38] VITALS: BP 132/87; PULSE 60; RESP 16; TEMP 97.8
--- NOTE | 2024-02-18 15:14 | P.SLEEP ---
History of Present Illness H&P Date: 02/18/24 Chief Complaint: Insomnia This is a 68-year-old female patient has been having insomnia for the past 4 years. The patient is stating that she is unable to sleep for more than 1 hour and sometimes 2 hours at night and she is feeling constantly fatigued and tired during the day. She is not able to take any naps. She initially tries to sleep on the couch and she is unable to initiate sleep. Later on she moves her bed and she can struggle to sleep till sometimes 3 AM in the morning and she gets out of bed at around 5:30 AM in the morning. Does not take any naps during the day. She has had previous history of CVA requiring endovascular intervention. No residual neurologic deficits following the CVA. No headaches. She suffers from chronic atrial fibrillation. She is on anticoagulation with Xarelto. She is on metoprolol for rate control. She has previous history of colon cancer and she has undergone resection and she has history of hyperlipidemia pacemaker insertion. Some increased anxiety and depression specially at nighttime when she is unable to generate sleep. 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 She is currently single and and she is living alone. Located history of snoring. No nightmares. No restlessness in lower extremities. No leg cramps. No nocturnal heartburn or chest pain. Her snoring status is unknown. No grinding of the teeth. Denies having any palpitations or heartburn. No parasomnias. No sleepwalking or sleep talking or eating disorder. She feels tired and fatigued during the day. No history of any substance abuse. She drinks a cup of coffee in the morning. He has smoked weed to help with her sleep and this has not helped. No substance abuse. No alcoholism. Her current Nordheim score is at 4. Review of Systems Constitutional: Reports fatigue Eyes: denies as per HPI, denies blurred vision, denies bulging eye, denies decreased vision, denies diplopia, denies discharge, denies dry eye, denies irritation, denies itching, denies pain, denies photophobia, denies loss of peripheral vision, denies loss of vision, denies tunnel vision/blind spots Ears: deny: decreased hearing, ear discharge, earache, tinnitus Ears, nose, mouth and throat: Reports as per HPI Breasts: absent: as per HPI, change in shape, gynecomastia, masses, nipple discharge, pain, skin changes, swelling Cardiovascular: Reports as per HPI Respiratory: Reports as per HPI Gastrointestinal: Reports as per HPI Genitourinary: Reports as per HPI Menstruation: Reports as per HPI, Reports amenorrhea Musculoskeletal: Reports as per HPI Musculoskeletal: absent: ankle pain, ankle stiffness, ankle swelling, as per HPI, elbow pain, elbow stiffness, elbow swelling, foot pain, foot stiffness, foot swelling, hand pain, hand stiffness, hand swelling, hip pain, hip stiffness, hip swelling, knee pain, knee stiffness, knee swelling, shoulder pain, shoulder stiffness, shoulder swelling, wrist pain, wrist stiffness, wrist swelling Integumentary: Reports as per HPI Neurological: Reports as per HPI Psychiatric: Reports as per HPI, Reports insomnia Endocrine: Reports as per HPI, Reports fatigue Hematologic/Lymphatic: Reports as per HPI Allergic/Immunologic: Reports as per HPI Past Medical History Past Medical History: Atrial Fibrillation, Cancer, CVA/TIA Additional Past Medical History / Comment(s): permanent colostomy 08/2019, 2016 rectal CA/had oral chemo/radiation/surgery; last chemo tx 04/16/18. 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 ablation for afib 08/11/18, PORT REMOVAL 10/21/18, REPAIR OSTOMY SCARRING 12/16/18 Past Anesthesia/Blood Transfusion Reactions: No Reported Reaction Additional Past Anesthesia/Blood Transfusion Reaction / Comment(s): No hx blood transfusion. Type of Cardiac Device: Permanent Pacemaker Device Placement Date:: 08/21/17 Past Psychological History: No Psychological Hx Reported Additional Psychological History / Comment(s): Pt resides alone. Smoking Status: Former smoker Past Alcohol Use History: Occasional Additional Past Alcohol Use History / Comment(s): Quit smoking in 1990, smoked approx 15 yrs, 2ppd. Past Drug Use History: Marijuana Additional Drug Use History / Comment(s): Recreational Marijuana . Pt aware no use 24hrs prior to procedure. - Past Family History Mother Family Medical History: Cancer, Deep Vein Thrombosis (DVT) Additional Family Medical History / Comment(s): skin cancer Father Family Medical History: No Reported History Additional Family Medical History / Comment(s): Father was healthy and of "old age" at the age of 88yrs. Medications and Allergies Home Medications Medication Instructions Recorded Confirmed Type Atorvastatin [Lipitor] 40 mg PO W/SUPPER 08/06/17 02/18/24 History Rivaroxaban [Xarelto] 20 mg PO W/SUPPER 10/28/17 02/18/24 History Enoxaparin [Lovenox] 40 mg SQ DAILY 05/17/21 05/17/21 History HYDROcodone/APAP 7.5-325MG [[place] 1 tab PO Q6HR PRN 05/17/21 05/17/21 History 7.5-325] HYDROcodone/APAP 7.5-325MG [[place] 1 tab PO Q4H PRN #18 tab 05/20/21 Rx 7.5-325] cefaDROXiL [Duricef] 500 mg PO Q12HR #6 cap 05/20/21 Rx Metoprolol Succinate [[place] 25 mg PO DAILY 02/18/24 02/18/24 History Sprinkle] Allergies Allergy/AdvReac Type Severity Reaction Status Date / Time No Known Allergies Allergy Verified 05/17/21 12:27 Physical Exam Vitals: Vital Signs Temp Pulse Resp BP Pulse Ox 02/18/24 14:37 97.8 F 60 16 132/87 98 Intake and Output 02/18/24 02/18/24 02/18/24 06:59 14:59 22:59 Other: Weight 77.111 kg The patient appeared well nourished and normally developed. Vital signs as documented. Head exam is unremarkable. No scleral icterus or corneal arcus noted. Neck is without jugular venous distension, thyromegaly, or carotid bruits. Carotid upstrokes are brisk bilaterally. Lungs are clear to auscultation and percussion. Cardiac exam reveals the PMI to be normally sized and situated. Rhythm is regular. First and second heart sounds normal. No murmurs, rubs or gallops. Abdominal exam reveals normal bowel sounds, no masses, no organomegaly and no aortic enlargement. Extremities are nonedematous and both femoral and pedal pulses are normal. Examination of the skin revealed no evidence of significant rashes, suspicious appearing nevi or other concerning lesions. Neurologically, the patient is awake and alert and the patient does not have any focal neurological deficit. Cranial nerves are essentially intact. Assessment and Plan Plan: Chronic insomnia, unexplained. Based on today's evaluation, the patient has no history of any chronic psychiatric disorder. There are some increased anxiety. No reported depression. No history of any PTSD. No history of any other completed his counts including to her chronic insomnia. Unfortunately, the patient is unable to generate and maintain sleep when she is averaging around 1 to 2 hours of sleep according to her. Her current Nordheim score is at 4. Her sleep hygiene measures adequate. No intake of any stimulants. She has had a previous history of CVA back in 2017 treated by local intervention and clot extraction and thrombolytic therapy. No residual deficits following the stroke. History of rectal cancer post surgical resection and the patient has received chemotherapy and radiation therapy Patient Hyperlipidemia History of pacemaker insertion Plan Continue principles of good sleep hygiene measures. Discussed with the patient principles of sleep restriction and stimulus control Avoid stimulants during the day Suggested hypnotic agent. The patient is against taking Ambien as the patient thinks that her stroke that occurred back in 2016 was related to Ambien intake. Will try Seroquel 100 mg at bedtime along with above-mentioned measures Will keep a sleep diary Will do a focal sonography once the patient is able to generate at least 4 hours of sleep. Sleep Note - Sleep Data ESS Total: 4 - Sleep Note Sleep Note: Temperature: 97.8 F Pulse Rate: 60 Respiratory Rate: 16 Blood Pressure: 132/87 SpO2: 98 Height: 5 ft 4 in Weight: 77.111 kg BMI: Neck Circumference: 14
== END ==
LOC: 3 N SLEEP 13:51
PROVIDERS: ATTEND Internal Medicine Critical Care Medicine
DX: F51.04 Psychophysiologic insomnia (principal); F41.9 Anxiety disorder, unspecified; E78.5 Hyperlipidemia, unspecified; Z86.73 Personal history of transient ischemic attack (TIA), and cerebral infarction without residual deficits; Z85.048 Personal history of other malignant neoplasm of rectum, rectosigmoid junction, and anus; Z92.3 Personal history of irradiation; Z92.21 Personal history of antineoplastic chemotherapy; Z95.0 Presence of cardiac pacemaker; Z87.891 Personal history of nicotine dependence; Z79.01 Long term (current) use of anticoagulants
CPT/HCPCS: 99211

== ENCOUNTER → 2024-03-10 | Outpatient (CLI) | payer MEDICARE ==
[2024-03-10 13:44] VITALS: BP 107/73; PULSE 61; RESP 16; TEMP 97.9
--- NOTE | 2024-03-10 14:35 | P.PN ---
Progress Note - Text Progress Note Date: 03/10/24 68-year-old female patient was seen in the office approximately a month ago for symptoms of chronic insomnia. The patient back and was unable to generate more than an hour of sleep. She was feeling constantly fatigued and tired during the day. She was unable to take any naps during the day. I evaluated this patient and please refer to my detailed consultation note that were done on 02/18/2024. The patient's chronic insomnia was essentially unexplained. No history of any psychiatric disorder. She did have some limited anxiety. No reported depression. No history of any PTSD. The patient had a previous CVA that occurred back in 2016 and this was treated by local intervention and clot extraction and thrombolytic therapy. Based on all this, I started the patient on Seroquel 100 mg at bedtime. In addition, the patient was explained principles of good sleep hygiene measures, stimulus control and sleep restriction. On today's evaluation, the patient is feeling much better. She is able to generate a good 7 hours of sleep. She is going to bed at around midnight and she is getting up between 6 and 7 AM in the morning and she is feeling well. Her only complaint is some increased daytime drowsiness and fatigue and she thinks this may be partly related to the medication that she is taking. Noted she is only on 100 mg of Seroquel at bedtime. Her level of alertness is improved considerably during the day. She has no other complaints. Original plan was to regulate this patient's sleep schedule and generate sleep and I am still interested in undergoing a screening polysomnography to evaluate for underlying sleep breathing disorder Lapel score is at 5 Medication includes Xarelto 20 mg p.o. daily, Lipitor 40 mg p.o. daily, metoprolol 25 mg half a tablet twice a day and Seroquel 100 mg at bedtime BP is 107/73 with a pulse of 61 and a respiration of 16 and a temperature is 97.9. Weight is 169 pounds with a body mass index of 29. The patient appeared well nourished and normally developed. Vital signs as documented. Head exam is unremarkable. No scleral icterus or corneal arcus noted. Neck is without jugular venous distension, thyromegaly, or carotid bruits. Carotid upstrokes are brisk bilaterally. Lungs are clear to auscultation and percussion. Cardiac exam reveals the PMI to be normally sized and situated. Rhythm is regular. First and second heart sounds normal. No murmurs, rubs or gallops. Abdominal exam reveals normal bowel sounds, no masses, no organomegaly and no aortic enlargement. Extremities are nonedematous and both femoral and pedal pulses are normal. Examination of the skin revealed no evidence of significant rashes, suspicious appearing nevi or other concerning lesions. Neurologically, the patient is awake and alert and the patient does not have any focal neurological deficit. Cranial nerves are essentially intact. Assessment Chronic insomnia, improved with cognitive behavioral therapy and Seroquel and the patient is taking Seroquel 100 mg at bedtime. She is able to generate a good 6 hours of sleep without having any major difficulties. She is reporting some daytime drowsiness. Rule out drug-induced drowsiness. Rule out underlying obstructive sleep apnea. History of rectal cancer, postsurgical resection and the patient has received systemic chemotherapy and radiation therapy History of CVA History of hypertension Hyperlipidemia Pacemaker insertion Plan Continue Seroquel at the same dose of 100 mg p.o. daily. He is to be taken at nighttime. Maintain good sleep hygiene measures. He restriction and stimulus control. Will continue cognitive behavioral therapy. Will undergo his current polysomnography to rule out underlying sleep apnea contributing to her daytime fatigue and drowsiness. If the sleep study is negative, will gradually the Seroquel dose. Will continue to follow.
== END ==
LOC: 3 N SLEEP 13:25
PROVIDERS: ATTEND Internal Medicine Critical Care Medicine
DX: F51.04 Psychophysiologic insomnia (principal); E78.5 Hyperlipidemia, unspecified; I10 Essential (primary) hypertension; R40.0 Somnolence; F41.9 Anxiety disorder, unspecified; Z86.73 Personal history of transient ischemic attack (TIA), and cerebral infarction without residual deficits; Z85.048 Personal history of other malignant neoplasm of rectum, rectosigmoid junction, and anus; Z79.899 Other long term (current) drug therapy; Z95.0 Presence of cardiac pacemaker; Z87.891 Personal history of nicotine dependence
CPT/HCPCS: 99212

== ENCOUNTER 2024-03-22 19:45 | Outpatient (CLI) | payer MEDICARE ==
--- NOTE | 2024-03-29 14:24 | P.PCN ---
Date of Procedure: 03/22/24 Operative Findings: 68-year-old female patient was seen in the office approximately a month ago for symptoms of chronic insomnia. The patient back and was unable to generate more than an hour of sleep. She was feeling constantly fatigued and tired during the day. She was unable to take any naps during the day. I evaluated this patient and please refer to my detailed consultation note that were done on 02/18/2024. The patient's chronic insomnia was essentially unexplained. No history of any psychiatric disorder. She did have some limited anxiety. No reported depression. No history of any PTSD. The patient had a previous CVA that occurred back in 2016 and this was treated by local intervention and clot extraction and thrombolytic therapy. Based on all this, I started the patient on Seroquel 100 mg at bedtime. In addition, the patient was explained principles of good sleep hygiene measures, stimulus control and sleep restriction. The patient was started feeling much better. She is able to generate a good 7 hours of sleep. She was going to bed at around midnight and she is getting up between 6 and 7 AM in the morning and she is feeling well. Her only complaint is some increased daytime drowsiness and fatigue and she thinks this may be partly related to the medication that she is taking. Noted she is only on 100 mg of Seroquel at bedtime. Her level of alertness is improved considerably during the day. She has no other complaints. The patient has already regulated her sleep schedule and she is able to generate sleep in this clinic polysomnography was ordered to evaluate for any underlying sleep breathing disorder. Pertinent physical findings The patient's weight is 170 pounds with a body mass index of 29.2 Technical description The patient was studied using a standard complex polysomnography protocol that included recording of the 2 EKG, Central, occipital and frontal EEG, right and left outer canthus EOG, submental EMG, right and left anterior tibialis EMG, respiratory airflow by thermocouple and or pressure/flow transducer, respiratory efforts by abdominal and thoracic PVDF belts, oxygen saturation by cable oximetry. Position by observation synchronized the PSG. Equipment used: [employer]. Sleep architecture The total recording duration was 498.5 minutes. The total sleep time was 267.0 minutes. The wake after sleep onset time was 205.0 minutes. Overall sleep efficiency was 53.6%. The patient's sleep latency was 27 minutes. The total arousal index was 29.4. There was 22.8% stage I sleep, 61.2% stage II sleep, 5.8% stage III sleep, 10.1% REM sleep. The latency to REM sleep was 395.0 minutes. Respiratory analysis The sleep study showed a total of 17 obstructive events of which 16 were obstructive apneas, 0 mixed apneas, 1 was obstructive hypopnea and there were no central apneas noted. The resulting AHI was 3.8. Oxygenation analysis No significant nocturnal oxygen desaturation was encountered throughout the sleep study. The baseline oxygen saturation was 93% while awake. The lowest oxygen saturation was 93% and there was no significant desaturation below 89%. Sleep continuity summary The patient encountered a total of 131 arousals with an index of 29.4. The respiratory arousal index was 0 Periodic limb movement activity The patient encountered a total of 119 periodic limb movements during sleep with an index of 26.7. There were a total of 22 periodic limb movement activity with arousals with an index of 4.9 Cardiac summary The average heart rate was 60 with a minimum heart rate of 58 and a maximum heart rate of 63 Assessment Chronic insomnia, improved with cognitive behavioral therapy and Seroquel and the patient is taking Seroquel 100 mg at bedtime. She was able to generate a good 6 hours of sleep without having any major difficulties. The current polysomnography is showing no evidence of any sleep breathing disorder. No significant oxygen desaturations. No cardiac arrhythmias. No seizure activity. No periodic limb movement activity causing any significant sleep fragmentation. The patient continued to have a low sleep efficiency of 63.6% and this is related to her chronic insomnia and she needs to work on her cognitive behavioral therapy, maintaining good sleep hygiene measures and continue taking Seroquel 100 mg at bedtime. Will make further dose adjustments accordingly. History of rectal cancer, postsurgical resection and the patient has received systemic chemotherapy and radiation therapy History of CVA History of hypertension Hyperlipidemia Pacemaker insertion Plan Continue Seroquel at the same dose of 100 mg p.o. daily. Maintain good sleep hygiene measures. Sleep restriction and stimulus control. Will continue cognitive behavioral therapy. Will titrate the dose of Seroquel according to her sleep quality and ability to generate and maintain sleep. Will keep her at a dose of 100 mg at bedtime for now. No need for CPAP therapy. Will continue to follow.
== END 2024-03-23 05:35 | disposition home or self-care (01) ==
LOC: 3 N SLEEP 19:45
PROVIDERS: ATTEND Internal Medicine Critical Care Medicine
DX: G47.33 Obstructive sleep apnea (adult) (pediatric) (principal); G47.00 Insomnia, unspecified; E78.5 Hyperlipidemia, unspecified; I10 Essential (primary) hypertension; Z86.73 Personal history of transient ischemic attack (TIA), and cerebral infarction without residual deficits; Z85.048 Personal history of other malignant neoplasm of rectum, rectosigmoid junction, and anus; Z95.0 Presence of cardiac pacemaker; Z79.899 Other long term (current) drug therapy; Z87.891 Personal history of nicotine dependence; Z79.01 Long term (current) use of anticoagulants
CPT/HCPCS: 95810

== ENCOUNTER → 2024-12-15 | Outpatient (CLI) | payer MEDICARE ==
--- NOTE | 2024-12-15 11:08 | US ---
EXAMINATION TYPE: US chest DATE OF EXAM: 12/15/2024 COMPARISON: CT chest abdomen pelvis 02/05/2023 CLINICAL INDICATION: Female, 69 years old with history of R22.2 LUMP CHEST; Lump with burning in ches t x 2-3 months. Pacemaker placed 2016? TECHNIQUE: Multiple grayscale and color Doppler ultrasound images of the patient's area of concern w ithin the left chest inferior to the clavicle were obtained. FINDINGS/IMPRESSION: Pacemaker wire seen at [facility]. No ultrasound evidence for abnormalities. No fluid collections identified. Consider further evaluation with CT if there is continued clinical c oncern. [facility], , 12/15/2024 11:05 AM
== END | disposition home or self-care (01) ==
LOC: RADUSWWP 10:45
PROVIDERS: ATTEND Family Medicine
DX: R22.2 Localized swelling, mass and lump, trunk (principal); Z95.0 Presence of cardiac pacemaker